=== PATIENT | female | born 1975 | race Caucasian/White ===

== ENCOUNTER 2017-12-29 10:17 | Emergency (ER) | payer MEDICARE, MEDICAID ==
[2017-12-29] MEDS: ONDANSETRON 4MG/2ML VIAL (J2405) IV (11:15)
[2017-12-29 11:53] LABS: BASO % 0.2 % (0.0-1.0); EOS % 0.1 % (0.0-3.0); HEMATOCRIT 30.1 % (36.0-47.0); HEMOGLOBIN 9.3 g/dl (12.0-15.5); IMMATURE GRANULOCYTE % 0.3 % (0-3.0); LYMPH # 1.1 10^3/uL (1.5-4.5); LYMPH % 9.1 % (24.0-44.0); MEAN CORPUSCULAR HEMOGLOBIN 28.7 pg (27.0-33.0); MEAN CORPUSCULAR HGB CONC 30.9 g/dl (32.0-36.5); MEAN CORPUSCULAR VOLUME 92.9 fl (80.0-96.0); MONO # 0.9 10^3/uL (0.0-0.8); MONO % 7.6 % (0.0-5.0); NEUTROPHILS # 9.6 10^3/uL (1.8-7.7); NEUTROPHILS % 82.7 % (36.0-66.0); PLATELET COUNT, AUTOMATED 357 10^3/uL (150-450); RED BLOOD COUNT 3.24 10^6/uL (4.00-5.40); RED CELL DISTRIBUTION WIDTH 15.3 % (11.5-14.5); WHITE BLOOD COUNT 11.6 10^3/uL (4.0-10.0)
[2017-12-29] MEDS: NS 1,000 ML IV (12:07)
[2017-12-29 12:28] LABS: ALBUMIN 2.5 GM/DL (3.2-5.2); ALKALINE PHOSPHATASE 75 U/L (45-117); ALT/SGPT 10 U/L (12-78); AMYLASE 56 U/L (25-115); ANION GAP 5 MEQ/L (8-16); AST/SGOT 10 U/L (7-37); BILIRUBIN,DIRECT < 0.1 MG/DL (0.0-0.2); BILIRUBIN,TOTAL 0.1 MG/DL (0.2-1.0); BLOOD UREA NITROGEN 13 MG/DL (7-18); CALCIUM LEVEL 8.3 MG/DL (8.5-10.1); CARBON DIOXIDE LEVEL 30 MEQ/L (21-32); CHLORIDE LEVEL 104 MEQ/L (98-107); CREATININE FOR GFR 0.53 MG/DL (0.55-1.30); GLOMERULAR FILTRATION RATE > 60.0 (>58); GLUCOSE, FASTING 125 MG/DL (70-100); LIPASE 413 U/L (73-393); POTASSIUM SERUM 3.3 MEQ/L (3.5-5.1); SODIUM LEVEL 139 MEQ/L (136-145); TOTAL PROTEIN 7.5 GM/DL (6.4-8.2)
[2017-12-29 12:29] LABS: LACTIC ACID SEPSIS PROTOCOL 0.6 MMOL/L (0.4-2.0)
[2017-12-29] MEDS ORDERED: ISOVUE-370 76% 100ML VIAL (Q9967) As Ordered (12:34)
[2017-12-29] MEDS: MORPHINE 4 MG/ML 1ML VIAL/SYRINGE (J2270) IV (12:35)
[2017-12-29] MEDS: methylPREDNISolone INJ 125 MG/2 ML VIAL (J2930) IV (14:15)
[2017-12-29 14:19] LABS: CALCIUM OXALATE CRYSTALS RFX LARGE; KETONE, URINE AUTO RFX 1+ mg/dL (NEGATIVE); MUCUS, URINE RFX SMALL (NEGATIVE); NITRITE, URINE AUTO RFX NEGATIVE (NEGATIVE); RBC, URINE AUTO RFX 8 /HPF (0-3); SQUAM EPITHELIAL CELL UR AURFX 1 /HPF (0-6); WBC, URINE AUTO RFX 4 /HPF (0-3)
[2017-12-29 14:40] LABS: LEUKOCYTE ESTERASE UR AUTO RFX 2+ (NEGATIVE)
== END 2017-12-29 14:29 | disposition home or self-care (01) ==
LOC: M ED 10:17
DX: K50.10 Crohn's disease of large intestine without complications (principal); K80.20 Calculus of gallbladder without cholecystitis without obstruction; R00.0 Tachycardia, unspecified; I10 Essential (primary) hypertension; E03.9 Hypothyroidism, unspecified; F20.9 Schizophrenia, unspecified; Z79.899 Other long term (current) drug therapy
CPT/HCPCS: Q9967

== ENCOUNTER 2018-07-21 06:30 | Emergency (ER) | payer MEDICARE, MEDICAID | END 2018-07-21 07:29 | disposition home or self-care (01) | LOC: M ED 06:30 | DX: J02.9 Acute pharyngitis, unspecified (principal); E03.9 Hypothyroidism, unspecified; Z79.899 Other long term (current) drug therapy; Z79.890 Hormone replacement therapy | CPT/HCPCS: 87880 ==

== ENCOUNTER 2018-10-29 17:13 | Emergency (ER) | payer MEDICARE, MEDICAID ==
[~2018-10-29] VITALS: Ht 157.5 cm; Wt 66.8 kg
[~2018-10-29 17:13] MED LIST: BENZ-52; CYAN1000VL; HALO1TAB19; HALO5TA; INFL10VL; JANU100T; LEVO125T4; LEVO150T7; LOSA50TA88; MAGICMW MT; PRED20TA PO; STEL90IN
[2018-10-29] MEDS ORDERED: HALOPERIDOL PO (17:30)
[2018-10-29] MEDS ORDERED: THIOTHIXENE (17:30)
[2018-10-29 19:37] VITALS: BP 116/74
--- NOTE | 2018-10-29 19:47 | REP ---
LEFT INGUINAL ULTRASOUND: Real-time sonographic evaluation of the left inguinal region performed. There is no evidence of left inguinal hernia. Palpable abnormality in this region appears to correspond to a large venous varicosity which traverses from the left abdominal wall into the left inguinal region. It communicates with the left iliac vein. It is patent with no intraluminal thrombus. Electronically Signed by Gaudencio Da Silva MD 10/30/2018 01:55 P
== END 2018-10-29 19:40 | disposition home or self-care (01) ==
LOC: M ED 17:13
DX: I86.2 Pelvic varices (principal); I10 Essential (primary) hypertension; F20.9 Schizophrenia, unspecified; E03.9 Hypothyroidism, unspecified; Z79.899 Other long term (current) drug therapy

== ENCOUNTER → 2019-01-09 | Outpatient (REF) | payer MEDICARE, MEDICAID ==
[~2019-01-09] MED LIST changes: +HALOPERIDOL PO; +THIOTHIXENE
== END ==
LOC: M SFHCWAGY 14:22
PROVIDERS: ATTEND Nurse Practitioner Family
DX: Z12.4 Encounter for screening for malignant neoplasm of cervix (principal)

== ENCOUNTER → 2019-01-09 | Outpatient (CLI) | payer MEDICARE, MEDICAID ==
--- NOTE | 2019-01-09 15:26 | REPMRS ---
Patient History The patient states she had a clinical breast exam in 12/2018. Patient has history of thyroid cancer at age 40 and is nulliparous. Family history of breast cancer at age 56 in paternal grandmother. No Hormone Replacement Therapy 3D TOMOSYNTHESIS WAS PERFORMED. Digital Woman Screen Mammo: January 09, 2019 - Exam #: [id number] Bilateral CC and MLO view(s) were taken. Technologist: Doris Espinoza, Technologist No prior studies available for comparison. FINDINGS: There are scattered fibroglandular densities. There is no evidence of cancer on this mammogram. Assessment: BI-RADS/ACR category 2 mammogram. Benign Findings. Recommendation Routine screening mammogram of both breasts in 1 year (for women over age 40). This mammogram was interpreted with the aid of an FDA-approved computer-aided dectection system. THE LIFETIME RISK OF BREAST CANCER IS 22.9%, THEREFORE SUPPLEMENTAL SCREENING MRI OF THE BREASTS IS RECOMMENDED. Electronically Signed By: Gaudencio Da Silva MD 01/09/19 [id number]
--- NOTE | 2019-01-14 09:49 | DEXA ---
AP SPINE L1 - L4 1.156 -0.3 -0.3 LT FEMUR TOTAL 0.892 -0.9 -0.6 LT NECK 0.815 -1.6 -1.1 RT FEMUR TOTAL 0.933 -0.6 -0.3 RT NECK 0.864 -1.2 -0.7 TOTAL BODY TOTAL OTHER COMMENTS: Normal bone densitometry of the spine. There is low bone density of the hips. FOLLOW-UP: Recommendation for the next bone density exam: 2 years. KANDY
== END ==
LOC: M WHC 13:41
PROVIDERS: ATTEND Internal Medicine
DX: Z01.419 Encounter for gynecological examination (general) (routine) without abnormal findings (principal); Z12.31 Encounter for screening mammogram for malignant neoplasm of breast; N60.19 Diffuse cystic mastopathy of unspecified breast; M81.0 Age-related osteoporosis without current pathological fracture; Z85.850 Personal history of malignant neoplasm of thyroid
CPT/HCPCS: 77063; 77067; 77080; G0101; G0123

== ENCOUNTER → 2019-04-18 | Outpatient (REF) | payer MEDICARE, MEDICAID | LOC: M SFHCLERA 18:19 | PROVIDERS: ATTEND Physician Assistant | DX: J02.9 Acute pharyngitis, unspecified (principal) ==

== ENCOUNTER 2020-05-21 07:34 | Emergency (ER) | payer MEDICARE, MEDICAID ==
[~2020-05-21] VITALS: Ht 157.5 cm; Wt 68.3 kg
[2020-05-21] MEDS ORDERED: VALA1TAB5 PO (07:43)
[2020-05-21] MEDS ORDERED: PALI1TAB2 PO (07:43)
[2020-05-21] MEDS ORDERED: BACITRACIN OINTMENT 30GM TUBE TOP STA (08:17)
[2020-05-21] MEDS ORDERED: PRED20TA PO (08:27)
[2020-05-21] MEDS ORDERED: BACI500O21 TOP (08:27)
[2020-05-21] MEDS ORDERED: LIDOCAINE VISCOUS 2% SOLN 15ML UDC SSP ONE (08:30)
[2020-05-21] MEDS ORDERED: predniSONE 20 MG TAB PO ONE (08:30)
[2020-05-21] MEDS ORDERED: MAGICMW SSP (08:31)
[2020-05-21 08:45] VITALS: BP 115/74
== END 2020-05-21 08:48 | disposition home or self-care (01) ==
LOC: M ED 07:34
DX: K13.70 Unspecified lesions of oral mucosa (principal); B02.8 Zoster with other complications; E11.9 Type 2 diabetes mellitus without complications; I10 Essential (primary) hypertension; K50.90 Crohn's disease, unspecified, without complications; F20.9 Schizophrenia, unspecified; F32.9 Major depressive disorder, single episode, unspecified; F41.9 Anxiety disorder, unspecified; Z79.84 Long term (current) use of oral hypoglycemic drugs; Z79.899 Other long term (current) drug therapy

== ENCOUNTER → 2020-09-12 | Outpatient (CLI) | payer MEDICARE, MEDICAID ==
[~2020-09-12] MED LIST changes: +BACI500O21 TOP; -BENZ-52; +BENZ-52 PO; +CENTCHW4 PO; -CYAN1000VL; +CYAN1000VL SQ; +HALO5TA PO; +JANU100T PO; +LEVO200T4 PO; +MAGICMW SSP; +PALI1TAB2 PO; +PALI1TAB3 PO; -STEL90IN; +STEL90IN SQ; +VALA1TAB5 PO; +VITA50005 PO
== END ==
LOC: M LABSMTC 11:07
PROVIDERS: ATTEND Anesthesiology
DX: Z01.812 Encounter for preprocedural laboratory examination (principal); Z20.822 Contact with and (suspected) exposure to COVID-19

== ENCOUNTER 2020-09-17 09:24 | Day surgery (SDC) | payer MEDICARE, MEDICAID ==
[~2020-09-17] VITALS: Ht 157.5 cm; Wt 66.1 kg
[~2020-09-17 09:24] MED LIST changes: +LIDOCAINE 2% 100MG/5ML SDV (FOR ANES.) As Ordered ONE; +NS 1,000 ML IV ONE; +propofoL 200 MG/20 ML VIAL As Ordered ONE
--- OUTSIDE RECORDS SUMMARY | 2020-09-17 09:30 | CCD ---
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 difficile colitis A04.72 Active 738959584 Problem Acute deep vein thrombosis ( DVT) of other vein of lower extremity, unspecified laterality I82.409 Active 590918597496 Problem Other schizophrenia F20.89 Active 30003462 Problem Irritable bowel syndrome with constipation K58.1 Active 426898402 Problem Arthralgia, unspecified joint M25.50 Active 57 840223 Problem Suzanna-rectal abscess K61.1 Active 89445146 ALLERGIES Allergen (clinical drug ingredient) Drug/Non Drug Allergy do cumented on EMR Reaction Allergy Type Onset Date Status balxzlzzide disodium hives Non Drug Allergy Active makepapurine Unknown Non Drug Allergy Active ENCOUNTERS from 1975 to 2020-07-20 Encounter Location Date Provider Diagnosis [facility] [address] [address] [place] [address] Jul, Joy [facility] IMMUNIZATIONS No Information SOCIAL HISTORY Tobacco Use: Social History Observation Description Date Details (start date - stop date) Never Smoker Sex Assigned At : Social History Observation Description Sex Assigned At Unknown Alcohol Screen (Audit-C) Question Answer Notes Did you have a drink containing alcohol in the past year? No Points 0 Interpretation Negative Tobacco Use/Smoking Question Answer Notes Patient is a never smoker REASON FOR REFERRAL No Information VITAL SIGNS No information MEDICATIONS Medication SIG (Take, Route, Frequency, Duration) Notes Start Da te End Date Status MiraLax - 250-300gm bottle as directed Orally one time for colonoscopy for 1 day December, Active Vitamin B 12 Active Tylenol 325 MG 2 tablets as needed Orally every 6 hrs Active Stelara 90 MG/ML as directed Subcutaneous every 8wks for 365 day s May, Active Centrum - Orally Active Hyoscyamine Sulfate 0.125 MG 1 tablet under the tongue and allow to dissolve as needed Sublingual once Feb, Active Paliperidone ER 6 MG TAKE ONE TABLET BY MOUTH EVERY DAY Oral for 30 Active MiraLax 255g bottle Once per colonoscopy prep oral once for 1 dose Active Levothyroxine Sodium 200 MCG 1 tablet on an empty stom ach in the morning Orally Once a day Active Benztropine Mesylate 1 MG 1 tablet at bedtime Orally Once a day Active Haloperidol 5 MG 1 tablet Orally Once a day Active PROCEDURES No Information RESULTS No Results REASON FOR VISIT No Information MEDICAL (GENERAL) HISTORY Type Description Date Medical History type II diabetes Medical History hypertension Medical History anemia Medical History hemorrhoids Medical History rheumatic fever Medical History Crohns SI Medical History hypokalemia Medical History neuropathy Medical History thyroid neoplasm malignant Medical History aphthous ulcer Medical History gastritis Medical History pyrexia Medical History colitis Medical History collagen vascular dx. Medical History schizophrenia Medical History pulmonary embolism Medical History Hypothyroidism Medical History drop foot Medical History thyroid caner Medical History Implanted device -IVC Filter Surgical History implanted device IVC Filter Surgical History fistula Surgical History colonoscopy 2016 Surgical History EGD 2016 Surgical History colonoscopy - kadhim 10/24/2017 Surgical History Colonoscopy-[facility] 02/2020 Hospitalization History SEE SURGICAL HX Hospitalization History [facility] - crohns fl are up 09/27/2017 Hospitalization History [facility]: crohns flare up 8 Goals Section No Information Health Concerns No Information MEDICAL EQUIPMENT No Information MENTAL STATUS No Information FUNCTIONAL STATUS No Information ASSESSMENTS No Information PLAN OF TREATMENT Medication Medication Name Sig Start Date Stop Date Stelara 90 MG/ML as directed Subcutaneous every 8wks for 365 day s May, Insurance Providers Payer Name Payer Address Payer Phone Insured Name Patient Relati onship to Insured Coverage Start Date Coverage End Date Medicare [address] [facility] [id number] Sarah Brown self Medicaid [address] [facility] [id number] Afia Brown self
--- OUTSIDE RECORDS SUMMARY | 2020-09-17 09:30 | CCD ---
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 difficile colitis A04.72 Active 769167605 Problem Acute deep vein thrombosis ( DVT) of other vein of lower extremity, unspecified laterality I82.409 Active 776525433255 Problem Other schizophrenia F20.89 Active 30053241 Problem Irritable bowel syndrome with constipation K58.1 Active 678209984 Problem Arthralgia, unspecified joint M25.50 Active 57 633351 Problem Suzanna-rectal abscess K61.1 Active 44992696 ALLERGIES Allergen (clinical drug ingredient) Drug/Non Drug Allergy do cumented on EMR Reaction Allergy Type Onset Date Status balxzlzzide disodium hives Non Drug Allergy Active makepapurine Unknown Non Drug Allergy Active ENCOUNTERS from 1975 to 2020-07-06 Encounter Location Date Provider Diagnosis [facility] [address] [facility] [address] [place] [address] Jun, Balwinder Al[place]fal[place] 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 IMMUNIZATIONS No Information SOCIAL HISTORY Tobacco Use: [...] REASON FOR REFERRAL No Information VITAL SIGNS Height 61 in Jun, Weight 152 lbs Jun, BMI 28.72 kg/m2 Jun, Oximetry 97 % Jun, Blood pressure systolic 100 mm Hg Jun, Blood pressure diastolic 74 mm Hg Jun, MEDICATIONS Medication SIG (Take, Route, Frequency, Duration) [...] Information RESULTS No Results REASON FOR VISIT F/U FROM COLONOSCOPY MEDICAL (GENERAL) HISTORY Type Description Date Medical [...] Hospitalization History SEE SURGICAL HX Hospitalization History [facility] - crohns fl are up 09/27/2017 Hospitalization History [place] [facility]: crohns flare up 8 Goals Section No Information Health Concerns No Information MEDICAL EQUIPMENT No Information MENTAL STATUS No Information FUNCTIONAL STATUS No Information ASSESSMENTS Encounter Date Diagnosis Assessment Notes Treatment Notes Treatm ent Clinical Notes Jun, 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 Concern for fistula on my colonoscopy and noted on MRI. She had fistula in past that was drained. She followed with Dr. Galaviz, but was told nothing to do regarding fistula (no records from office to review). She has failed majority of biologics (Remicade, Humira, Entyvio) and currently on Stelara which mother states helps but she still has periodic rectal bleeding. Outgoing referral for GI in [place] (Dr. Bo Gentile) that mother believes could see her daughter with better continuity of care. PLAN OF TREATMENT Medication Medication Name Sig Start Date Stop Date Stelara 90 MG/ML as directed Subcutaneous every 8wks for 365 day s May, Treatment Notes Assessment Notes Clinical Notes Crohns disease of both small and large intestine with fistul a Patient with many findings on her last colonoscopy with areas of adenoma disguised by inflammation. Concern for fistula on my colonoscopy and noted on MRI. She had fistula in past that was drained. She followed with Dr. Galaviz, but was told nothing to do regarding fistula (no records from office to review). She has failed majority of biologics (Remicade, Humira, Entyvio) and currently on Stelara which mother states helps but she still has periodic rectal bleeding. Outgoing referral for GI in [place] (Dr. Bo Gentile) that mother believes could see her daughter with better continuity of care. Next Appt Details prn Reason: Insurance Providers Payer Name Payer Address Payer Phone Insured Name Patient Relati onship to Insured Coverage Start Date Coverage End Date Medicaid [address] [facility] [id number] Afia Brown self Medicare [address] [place] [address] Sarah Brown self
--- OUTSIDE RECORDS SUMMARY | 2020-09-17 09:32 | CCD ---
Author Author [facility] Organization [facility] Address Unknown Phone Unavailable Care Team Providers Care Soils Engineer Name Role Phone Andrés Noble MD Unavailable Unavailable Andrés Noble MD Unavailable Unavailable Andrés Noble MD Unavailable Unavailable Andrés Noble MD Unavailable Unavailable Andrés Noble MD Unavailable Unavailable Andrés Noble MD Unavailable Unavailable Andrés Noble MD Unavailable Unavailable Andrés Noble MD Unavailable Unavailable Andrés Noble MD Unavailable Unavailable Andrés Noble MD Unavailable Unavailable Andrés Noble MD Unavailable Unavailable Andrés Noble MD Unavailable Unavailable Andrés Noble MD Unavailable Unavailable REASON, L EDWARD DO Unavailable Unavailable REASON, L EDWARD DO Unavailable Unavailable REASON, L EDWARD DO Unavailable Unavailable REASON, L EDWARD DO Unavailable Unavailable REASON, L EDWARD DO Unavailable Unavailable REASON, L EDWARD DO Unavailable Unavailable REASON, L EDWARD DO Unavailable Unavailable REASON, L EDWARD DO Unavailable Unavailable REASON, L EDWARD DO Unavailable Unavailable REASON, L EDWARD DO Unavailable Unavailable REASON, L EDWARD DO Unavailable Unavailable REASON, L EDWARD DO Unavailable Unavailable REASON, L EDWARD DO Unavailable Unavailable REASON, L EDWARD DO Unavailable Unavailable REASON, L EDWARD DO Unavailable Unavailable REASON, L EDWARD DO Unavailable Unavailable REASON, L EDWARD DO Unavailable Unavailable REASON, L EDWARD DO Unavailable Unavailable REASON, L EDWARD DO Unavailable Unavailable REASON, L EDWARD DO Unavailable Unavailable REASON, L EDWARD DO Unavailable Unavailable REASON, L EDWARD DO Unavailable Unavailable REASON, L EDWARD DO Unavailable Unavailable REASON, L EDWARD DO Unavailable Unavailable REASON, L EDWARD DO Unavailable Unavailable REASON, L EDWARD DO Unavailable Unavailable REASON, L EDWARD DO Unavailable Unavailable REASON, L EDWARD DO Unavailable Unavailable REASON, L EDWARD DO Unavailable Unavailable REASON, L EDWARD DO Unavailable Unavailable REASON, L EDWARD DO Unavailable Unavailable REASON, L EDWARD DO Unavailable Unavailable REASON, L EDWARD DO Unavailable Unavailable REASON, L EDWARD DO Unavailable Unavailable REASON, L EDWARD DO Unavailable Unavailable REASON, L EDWARD DO Unavailable Unavailable REASON, L EDWARD DO Unavailable Unavailable REASON, L EDWARD DO Unavailable Unavailable REASON, L EDWARD DO Unavailable Unavailable REASON, L EDWARD DO Unavailable Unavailable REASON, L EDWARD DO Unavailable Unavailable REASON, L EDWARD DO Unavailable Unavailable REASON, L EDWARD DO Unavailable Unavailable REASON, L EDWARD DO Unavailable Unavailable REASON, L EDWARD DO Unavailable Unavailable REASON, L EDWARD DO Unavailable Unavailable REASON, L EDWARD DO Unavailable Unavailable REASON, L EDWARD DO Unavailable Unavailable REASON, L EDWARD DO Unavailable Unavailable REASON, L EDWARD DO Unavailable Unavailable REASON, L EDWARD DO Unavailable Unavailable REASON, L EDWARD DO Unavailable Unavailable REASON, L EDWARD DO Unavailable Unavailable REASON, L EDWARD DO Unavailable Unavailable REASON, L EDWARD DO Unavailable Unavailable REASON, L EDWARD DO Unavailable Unavailable REASON, L EDWARD DO Unavailable Unavailable REASON, L EDWARD DO Unavailable Unavailable REASON, L EDWARD DO Unavailable Unavailable REASON, L EDWARD DO Unavailable Unavailable REASON, L EDWARD DO Unavailable Unavailable REASON, L EDWARD DO Unavailable Unavailable REASON, L EDWARD DO Unavailable Unavailable REASON, L EDWARD DO Unavailable Unavailable REASON, L EDWARD DO Unavailable Unavailable HALLERAN, Carmel RUCKER MD Unavailable Unavailable HALLERAN, Carmel RUCKER MD Unavailable Unavailable HALLERAN, Carmel RUCKER MD Unavailable Unavailable HALLERAN, Carmel RUCKER MD Unavailable Unavailable HALLERAN, Carmel RUCKER MD Unavailable Unavailable HALLERAN, Carmel RUCKER MD Unavailable Unavailable HALLERAN, Carmel RUCKER MD Unavailable Unavailable HALLERAN, Carmel RUCKER MD Unavailable Unavailable HALLERAN, Carmel RUCKER MD Unavailable Unavailable HALLERAN, Carmel RUCKER MD Unavailable Unavailable HALLERAN, Carmel RUCKER MD Unavailable Unavailable HALLERAN, Carmel RUCKER MD Unavailable Unavailable HALLERAN, Carmel RUCKER MD Unavailable Unavailable HALLERAN, Carmel RUCKER MD Unavailable Unavailable HALLERAN, Carmel RUCKER MD Unavailable Unavailable HALLERAN, Carmel RUCKER MD Unavailable Unavailable HALLERAN, Carmel RUCKER MD Unavailable Unavailable HALLERAN, Carmel RUCKER MD Unavailable Unavailable HALLERAN, Carmel RUCKER MD Unavailable Unavailable HALLERAN, Carmel RUCKER MD Unavailable Unavailable HALLERAN, Carmel RUCKER MD Unavailable Unavailable HALLERAN, Carmel RUCKER MD Unavailable Unavailable HALLERAN, Carmel RUCKER MD Unavailable Unavailable HALLERAN, Carmel RUCKER MD Unavailable Unavailable HALLERAN, Carmel RUCKER MD Unavailable Unavailable HALLERAN, Carmel RUCKER MD Unavailable Unavailable HALLERAN, Carmel RUCKER MD Unavailable Unavailable HALLERAN, Carmel RUCKER MD Unavailable Unavailable HALLERAN, Carmel RUCKER MD Unavailable Unavailable HALLERAN, Carmel RUCKER MD Unavailable Unavailable HALLERAN, Carmel RUCKER MD Unavailable Unavailable HALLERAN, Carmel RUCKER MD Unavailable Unavailable HALLERAN, Carmel RUCKER MD Unavailable Unavailable HALLERAN, Carmel RUCKER MD Unavailable Unavailable HALLERAN, aCrmel RUCKER MD Unavailable Unavailable HALLERAN, Carmel RUCKER MD Unavailable Unavailable HALLERAN, Carmel RUCKER MD Unavailable Unavailable HALLERAN, Carmel RUCKER MD Unavailable Unavailable HALLERAN, Carmel RUCKER MD Unavailable Unavailable HALLERAN, Carmel RUCKER MD Unavailable Unavailable HALLERAN, Carmel RUCKER MD Unavailable Unavailable HALLERAN, Carmel RUCKER MD Unavailable Unavailable HALLERAN, Carmel RUCKER MD Unavailable Unavailable HALLERAN, Carmel RUCKER MD Unavailable Unavailable HALLERAN, Carmel RUCKER MD Unavailable Unavailable HALLERAN, Carmel RUCKER MD Unavailable Unavailable HALLERAN, Carmel RUCKER MD Unavailable Unavailable HALLERAPaxton, Carmel RUCKER MD Unavailable Unavailable HALLERAN, Carmel RUCKER MD Unavailable Unavailable HALLERAN, Carmel RUCKER MD Unavailable Unavailable HALLERAN, Carmel RUCKER MD Unavailable Unavailable HALLERAN, Carmel RUCKER MD Unavailable Unavailable HALLERAN, Carmel RUCKER MD Unavailable Unavailable HALLERAN, Carmel RUCKER MD Unavailable Unavailable HALLERAPaxton, Carmel RUCKER MD Unavailable Unavailable HALLERAPaxton, Carmel RUCKER MD Unavailable Unavailable HALLERAN, Carmel RUCKER MD Unavailable Unavailable HALLERAN, Carmel RUCKER MD Unavailable Unavailable HALLERAN, Carmel RUCKER MD Unavailable Unavailable HALLERAN, Carmel RUCKER MD Unavailable Unavailable HALLERAN, Carmel RUCKER MD Unavailable Unavailable HALLERAPaxton, Carmel RUCKER MD Unavailable Unavailable HALLERAPaxton, Carmel RUCKER MD Unavailable Unavailable HALLERAPaxton, Carmel RUCKER MD Unavailable Unavailable HALLERAN, Carmel RUCKER MD Unavailable Unavailable HALLERAN, Carmel RUCKER MD Unavailable Unavailable HALLERAN, Carmel RUCKER MD Unavailable Unavailable HALLERAN, Carmel RUCKER MD Unavailable Unavailable Carmel DRAKE MD Unavailable Unavailable Carmel DRAKE MD Unavailable Unavailable BROWN, ANDREINA RONIT SUPERVISOR CEREAL Unavailable Unavailable BROWN, ANDREINA RONIT SUPERVISOR CEREAL Unavailable Unavailable BROWN, ANDREINA RONIT SUPERVISOR CEREAL Unavailable Unavailable BROWN, ANDREINA RONIT SUPERVISOR CEREAL Unavailable Unavailable BROWN, ANDREINA RONIT SUPERVISOR CEREAL Unavailable Unavailable BROWN, ANDREINA RONIT SUPERVISOR CEREAL Unavailable Unavailable BROWN, ANDREINA RONIT SUPERVISOR CEREAL Unavailable Unavailable BROWN, ANDREINA RONIT SUPERVISOR CEREAL Unavailable Unavailable BROWN, ANDREINA RONIT SUPERVISOR CEREAL Unavailable Unavailable BROWN, ANDREINA RONIT SUPERVISOR CEREAL Unavailable Unavailable BROWN, ANDREINA RONIT SUPERVISOR CEREAL Unavailable Unavailable BROWN, ANDREINA RONIT SUPERVISOR CEREAL Unavailable Unavailable BROWN, ANDREINA RONIT SUPERVISOR CEREAL Unavailable Unavailable BROWN, ANDREINA RONIT SUPERVISOR CEREAL Unavailable Unavailable BROWN, ANDREINA RONIT SUPERVISOR CEREAL Unavailable Unavailable BROWN, ANDREINA RONIT SUPERVISOR CEREAL Unavailable Unavailable BROWN, ANDREINA RONIT SUPERVISOR CEREAL Unavailable Unavailable BROWN, ANDREINA RONIT SUPERVISOR CEREAL Unavailable Unavailable BROWN, ANDREINA RONIT SUPERVISOR CEREAL Unavailable Unavailable BROWN, ANDREINA RONIT SUPERVISOR CEREAL Unavailable Unavailable BROWN, ANDREINA RONIT SUPERVISOR CEREAL Unavailable Unavailable BROWN, ANDREINA RONIT SUPERVISOR CEREAL Unavailable Unavailable BROWN, ANDREINA RONIT SUPERVISOR CEREAL Unavailable Unavailable BROWN, ANDREINA RONIT SUPERVISOR CEREAL Unavailable Unavailable BROWN, ANDREINA RONIT SUPERVISOR CEREAL Unavailable Unavailable BROWN, ANDREINA RONIT SUPERVISOR CEREAL Unavailable Unavailable BROWN, ANDREINA RONIT SUPERVISOR CEREAL Unavailable Unavailable BROWN, ANDREINA RONIT SUPERVISOR CEREAL Unavailable Unavailable BROWN, ANDREINA RONIT SUPERVISOR CEREAL Unavailable Unavailable BROWN, ANDREINA RONIT SUPERVISOR CEREAL Unavailable Unavailable BROWN, ANDREINA RONIT SUPERVISOR CEREAL Unavailable Unavailable BROWN, ANDREINA RONIT SUPERVISOR CEREAL Unavailable Unavailable BROWN, ANDREINA RONIT SUPERVISOR CEREAL Unavailable Unavailable BROWN, ANDREINA RONIT SUPERVISOR CEREAL Unavailable Unavailable BROWN, ANDREINA RONIT SUPERVISOR CEREAL Unavailable Unavailable BROWN, ANDREINA RONIT SUPERVISOR CEREAL Unavailable Unavailable BROWN, ANDREINA RONIT SUPERVISOR CEREAL Unavailable Unavailable BROWN, ANDREINA RONIT SUPERVISOR CEREAL Unavailable Unavailable BROWN, ANDREINA RONIT SUPERVISOR CEREAL Unavailable Unavailable ZEGIL, D YESSENIA TRAVELERS' AID WORKER Unavailable Unavailable ZEGIL, D YESSENIA TRAVELERS' AID WORKER Unavailable Unavailable ZEGIL, D YESSENIA TRAVELERS' AID WORKER Unavailable Unavailable Pedrito Gentile MD Unavailable Unavailable Pedrito Gentile MD Unavailable Unavailable Pedrito Gentile MD Unavailable Unavailable Pedrito Gentile MD Unavailable Unavailable Pedrito Gentile MD Unavailable Unavailable Pedrito Gentile MD Unavailable Unavailable ePdrito Gentile MD Unavailable Unavailable Pedrito Gentile MD Unavailable Unavailable Pedrito Gentile MD Unavailable Unavailable Pedrito Gentile MD Unavailable Unavailable Seferino S Bo HUGHES Unavailable Unavailable Seferino S Bo HUGHES Unavailable Unavailable Seferino S Bo HUGHES Unavailable Unavailable Seferino S Bo HUGHES Unavailable Unavailable Seferino S Bo HUGHES Unavailable Unavailable Seferino S Bo HUGHES Unavailable Unavailable Seferino S Bo HUGHES Unavailable Unavailable Seferino S Bo MD Unavailable Unavailable Seferino S Bo MD Unavailable Unavailable Seferino, S Bo MD Unavailable Unavailable Seferino S Bo MD Unavailable Unavailable Seferino S Bo HUGHES Unavailable Unavailable Seferino S Bo HUGHES Unavailable Unavailable Seferino S Bo HUGHES Unavailable Unavailable Seferino S Bo HUGHES Unavailable Unavailable Seferino S Bo HUGHES Unavailable Unavailable Seferino, S Bo HUGHES Unavailable Unavailable Seferino S Bo HUGHES Unavailable Unavailable SeferinoPedrito MD Unavailable Unavailable SeferinoPedrito arana MD Unavailable Unavailable SeferinoPedrito MD Unavailable Unavailable Seferino S Bo HUGHES Unavailable Unavailable SeferinoPedrito arana MD Unavailable Unavailable Seferino, S Bo HUGHES Unavailable Unavailable SeferinoPedrito arana MD Unavailable Unavailable Pedrito Gentile MD Unavailable Unavailable Pedrito Gentile MD Unavailable Unavailable Pedrito Gentile MD Unavailable Unavailable Pedrito Gentile MD Unavailable Unavailable Pedrito Gentile MD Unavailable Unavailable Seferino S Bo HUGHES Unavailable Unavailable Pedrito Gentile MD Unavailable Unavailable Pedrito Gentile MD Unavailable Unavailable Pedrito Gentile MD Unavailable Unavailable Pedrito Gentile MD Unavailable Unavailable Pedrito Gentile MD Unavailable Unavailable Pedrito Gentile MD Unavailable Unavailable Pedrito Gentile MD Unavailable Unavailable Seferino, S Bo HUGHES Unavailable Unavailable Hadian, Arley Unavailable Unavailable Hadian, Arley Unavailable Unavailable Hadian, Arley Unavailable Unavailable Hadian, Arley Unavailable Unavailable Hadian, Arley Unavailable Unavailable Hadian, Arley Unavailable Unavailable Hadian, Arley Unavailable Unavailable Hadian, Arley Unavailable Unavailable Hadian, Arley Unavailable Unavailable Hadian, Arley Unavailable Unavailable Hadian, Arley Unavailable Unavailable Hadian, Arley Unavailable Unavailable Hadian, Arley Unavailable Unavailable Hadian, Arley Unavailable Unavailable Hadian, Arley Unavailable Unavailable Hadian, Arley Unavailable Unavailable Hadian, Arley Unavailable Unavailable Hadian, Arley Unavailable Unavailable Hadian, Arley Unavailable Unavailable Hadian, Arley Unavailable Unavailable Hadian, Arley Unavailable Unavailable Hadian, Arley Unavailable Unavailable Hadian, Arley Unavailable Unavailable Hadian, Arley Unavailable Unavailable Hadian, Arley Unavailable Unavailable Hadian, Arley Unavailable Unavailable Hadian, Arley Unavailable Unavailable Hadian, Arley Unavailable Unavailable Hadian, Arley Unavailable Unavailable Hadian, Arley Unavailable Unavailable Hadian, Arley Unavailable Unavailable Hadian, Arley Unavailable Unavailable Hadian, Arley Unavailable Unavailable ABHYANKHARJINDER ASH MD Unavailable Unavailable ABHYANKHARJINDER ASH MD Unavailable Unavailable ABHYANKHARJINDER ASH MD Unavailable Unavailable ABHYANKHARJINDER ASH MD Unavailable Unavailable ABHYANKHARJINDER ASH MD Unavailable Unavailable ABHYANKHARJINDER ASH MD Unavailable Unavailable ABHYANKARHARJINDER MD Unavailable Unavailable ABHYANKARHARJINDER MD Unavailable Unavailable Cata, Summer SUPERVISOR CEREAL Unavailable Unavailable Cata, Summer SUPERVISOR CEREAL Unavailable Unavailable Cata, Summer SUPERVISOR CEREAL Unavailable Unavailable Cata, Summer SUPERVISOR CEREAL Unavailable Unavailable Cata, Summer SUPERVISOR CEREAL Unavailable Unavailable Cata, Summer SUPERVISOR CEREAL Unavailable Unavailable Cata, Summer SUPERVISOR CEREAL Unavailable Unavailable Cata, Summer SUPERVISOR CEREAL Unavailable Unavailable Cata, Summer SUPERVISOR CEREAL Unavailable Unavailable ALTAFI, ALCIDES MD Unavailable Unavailable ALTAFI, ALCIDES MD Unavailable Unavailable ALTAFI, ALCIDES MD Unavailable Unavailable ALTAFI, ALCIDES MD Unavailable Unavailable ALTAFI, ALCIDES MD Unavailable Unavailable ALTAFI, ALCIDES MD Unavailable Unavailable ALTAFI, ALCIDES MD Unavailable Unavailable ALTAFI, ALCIDES MD Unavailable Unavailable ALTAFI, ALCIDES MD Unavailable Unavailable ALTAFI, ALCIDES MD Unavailable Unavailable ALTAFI, ALCIDES MD Unavailable Unavailable MARTY GARCIA MD MPH Unavailable Unavailable Real, Andrés HUGHES Unavailable Unavailable Real, Andrés HUGHES Unavailable Unavailable Real, Andrés HUGHES Unavailable Unavailable RealAndrés MD Unavailable Unavailable Real, Josselinehib Unavailable Unavailable Real, Josselinehib Unavailable Unavailable Real, Josselinehib Unavailable Unavailable Real, Wahib Unavailable Unavailable Real, Josselinehib Unavailable Unavailable Real, Josselinehib Unavailable Unavailable Real, Wahib Unavailable Unavailable Real, Josselinehib Unavailable Unavailable Real, Josselinehib Unavailable Unavailable Signature Not Required, Not Signature Unavailable Un available ALTAFI, ALCIDES MD Unavailable Unavailable ALTAFI, ALCIDES MD Unavailable Unavailable ALTAFI, ALCIDES MD Unavailable Unavailable ALTAFI, ALCIDESBRADY HUGHES Unavailable Unavailable ALTAFI, ALCIDESBRADY HUGHES Unavailable Unavailable ALTAFI, ALCIDESBRADY HUGHES Unavailable Unavailable ALTAFI, ALCIDESBRADY HUGHES Unavailable Unavailable ALTAFI, ALCIDES MD Unavailable Unavailable ALTAFI, ALCIDESBRADY HUGHES Unavailable Unavailable ALTAFI, ALCIDESBRADY HUGHES Unavailable Unavailable ALTAFI, ALCIDES HUGHES Unavailable Unavailable OSCAR, A YAO PA Unavailable Unavailable OSCAR, A YAO PA Unavailable Unavailable OSCAR, A YAO PA Unavailable Unavailable OSCAR, A YAO PA Unavailable Unavailable OSCAR, A YAO PA Unavailable Unavailable OSCAR, A YAO PA Unavailable Unavailable OSCAR, A YAO PA Unavailable Unavailable OSCAR, A YAO PA Unavailable Unavailable OSCAR, A YAO PA Unavailable Unavailable OSCAR, A YAO PA Unavailable Unavailable OSCAR, A YAO PA Unavailable Unavailable OSCAR, A YAO PA Unavailable Unavailable OSCAR, A YAO PA Unavailable Unavailable Sandra, L Va SUPERVISOR CEREAL Unavailable Unavailable Sandra, L Va SUPERVISOR CEREAL Unavailable Unavailable Sandra, L Va SUPERVISOR CEREAL Unavailable Unavailable Sandra, L Va SUPERVISOR CEREAL Unavailable Unavailable Sandra, L Va SUPERVISOR CEREAL Unavailable Unavailable Sandra, L Va SUPERVISOR CEREAL Unavailable Unavailable Sandra, L Va SUPERVISOR CEREAL Unavailable Unavailable Sandra, L Va SUPERVISOR CEREAL Unavailable Unavailable Sandra, L Va SUPERVISOR CEREAL Unavailable Unavailable Sandra, L Va SUPERVISOR CEREAL Unavailable Unavailable Sandra, L Va SUPERVISOR CEREAL Unavailable Unavailable Zaheer Wright MD Unavailable Unavailable Zaheer Wright MD Unavailable Unavailable Zaheer Wright MD Unavailable Unavailable Zaheer Wright MD Unavailable Unavailable Zaheer Wright MD Unavailable Unavailable Zaheer Wright MD Unavailable Unavailable Zaheer Wright MD Unavailable Unavailable Zaheer Wright MD Unavailable Unavailable Zaheer Wright MD Unavailable Unavailable Zaheer Wright MD Unavailable Unavailable Zaheer Wright MD Unavailable Unavailable Zaheer Wright MD Unavailable Unavailable Zaheer Wright MD Unavailable Unavailable Zaheer Wright MD Unavailable Unavailable Zaheer Wright MD Unavailable Unavailable Zaheer Wright MD Unavailable Unavailable Zaheer Wright MD Unavailable Unavailable Zaheer Wright MD Unavailable Unavailable Zaheer Wright MD Unavailable Unavailable Zaheer Wright MD Unavailable Unavailable Zaheer Wright MD Unavailable Unavailable Zaheer Wright MD Unavailable Unavailable Zaheer Wright MD Unavailable Unavailable Zaheer Wright MD Unavailable Unavailable Kyle, M Raymond HUGHES Unavailable Unavailable Kyle, M Raymond HUGHES Unavailable Unavailable Kyle, M Raymond HUGHES Unavailable Unavailable Kyle, M Raymond HUGHES Unavailable Unavailable Kyle, M Raymond HUGHES Unavailable Unavailable Kyle, M Raymond HUGHES Unavailable Unavailable Kyle, M Raymond HUGHES Unavailable Unavailable Kyle, M Raymond HUGHES Unavailable Unavailable Kyle, M Raymond HUGHES Unavailable Unavailable THATTE, V WHITNEY PA-C Unavailable Unavailable THATTE, V WHITNEY PA-C Unavailable Unavailable THATTE, V WHITNEY PA-C Unavailable Unavailable THATTE, V WHITNEY PA-C Unavailable Unavailable THATTE, V WHITNEY PA-C Unavailable Unavailable THATTE, V WHITNEY PA-C Unavailable Unavailable THATTE, V WHITNEY PA-C Unavailable Unavailable THATTE, V WHITNEY PA-C Unavailable Unavailable THATTE, V WHITNEY PA-C Unavailable Unavailable THATTE, V WHITNEY PA-C Unavailable Unavailable THATTE, V WHITNEY PA-C Unavailable Unavailable THATTE, V WHITNEY PA-C Unavailable Unavailable Re-disclosure Warning The records that you are about to access may contain information from federally-assisted alcohol or drug abuse programs. If such information is present, then the following federally mandated warning applies: This information has been disclosed to you from records protected by federal confidentiality rules (42 CFR part 2). The federal rules prohibit you from making any further disclosure of this information unless further disclosure is expressly permitted by the written consent of the person to whom it pertains or as otherwise permitted by 42 CFR part 2. A general authorization for the release of medical or other information is NOT sufficient for this purpose. The Federal rules restrict any use of the information to criminally investigate or prosecute any alcohol or drug abuse patient.The records that you are about to access may contain highly sensitive health information, the redisclosure of which is protected by Article 27-F of the [facility] Public Health law. If you continue you may have access to information: Regarding HIV / AIDS; Provided by facilities licensed or operated by the [facility] Office of Mental Health; or Provided by the [facility] Office for People With Developmental Disabilities. If such information is present, then the following [facility] mandated warning applies: This information has been disclosed to you from confidential records which are protected by state law. State law prohibits you from making any further disclosure of this information without the specific written consent of the person to whom it pertains, or as otherwise permitted by law. Any unauthorized further disclosure in violation of state law may result in a fine or [place] [facility] sentence or both. A general authorization for the release of medical or other information is NOT sufficient authorization for further disc losure. Allergies and Adverse Reactions Type Description Substance Reaction Status Data Source(s ) Drug allergy balsalazide balsalazide [facility] spital Drug allergy Drug allergy MAKEPAPURINE [facility] Drug allergy Drug allergy BALXZILZIDE [facility] balxzlzzide disodium balxzlzzide disodium balxzlzzide disodium hives Active eCW1 ([facility]) makepapurine makepapurine makepapurine Unknown Active eCW1 ([facility]) Family History Family Member Name Family Member Gender Family Member Status Date o f Status Description Data Source(s) Unknown Male Problem MEDENT ([facility] () Encounters Encounter Providers Location Date Indications Data Source(s ) Preadmit Attender: WHITNEY MASTERS PA-C 09/27/2020 02:33:00 PM [facility] Outpatient Attender: WHITNEY MASTERS PA-C 09/13/2020 12:45:00 PM [facility] Outpatient Attender: Bo Gentile MD ER-RAD 09/13/2020 10:14: 00 AM [facility] Outpatient Attender: Andrés Noble MD 09/06/2020 01:11:00 PM [facility] Outpatient Attender: Summer Ivy NP CPSCAORT-CPSGNBEH 08/14 09:42:00 AM [facility] - 09/03/2020 09:43:00 AM EST [facility] Patient discharged. Outpatient Attender: Andrés Noble MD ER-CTCMEDON 08/30/2020 01:50:00 PM [facility] Emergency Attender: YAO OROZCO ED-ED 08/27 06:39:00 AM [facility] - 08/27/2020 07:05:00 AM EST WOUND CHECK UP,RIGHT RING FINGER [facility] WOUND CHECK UP,RIGHT RING FINGER Patient discharged. Emergency Attender: YAO OROZCO ED-ED 08/24 08:05:00 AM EST - 08/24/2020 08:39:00 AM EST WOUND CHECK [facility] WOUND CHECK Patient discharged. Outpatient Attender: Andrés Noble MD 08/23/2020 01:08:00 PM [facility] 08/23/2020 10:10:00 AM [facility] Emergency Attender: YESSENIA UNDERWOOD [facility] ED-ED 08/13 04:25:00 PM EST - 08/22/2020 07:16:00 PM EST RT RING FINGER [place] [facility] RT RING FINGER [place]EN Patient discharged. Outpatient Attender: Andrés Noble MD -[facility] 021 04:01:00 PM EST - 08/19/2020 04:02:00 PM EST [id number] [facility] [id number] Patient discharged. Outpatient Attender: Arley Lorenzo ED-[facility] 11:29:00 AM EST - 08/17/2020 11:30:00 AM EST [id number] [facility] [id number] Patient discharged. Outpatient Attender: Raymond [facility] 08/16 02:59:00 PM EST - 08/16/2020 03:00:00 PM [facility] Patient discharged. Outpatient Attender: Andrés Noble MD -CTCMEDONC 08/16/2020 01:30:00 PM [facility] Outpatient Attender: SINCERE WOODRUFF DO [facility] 08/10 07:29:00 AM EST - 08/10/2020 07:30:00 AM EST [id number] [facility] - [place] K529 Patient discharged. Outpatient Attender: Andrés Noble MD 08/09/2020 09:06:00 AM [facility] 08/02/2020 03:51:00 PM [facility] Outpatient Attender: Andrés Noble MD 08/02/2020 03:24:00 PM [facility] Outpatient Attender: Raymond Wright MD ED-LAB 020 08:10:00 AM EST - 08/02/2020 08:11:00 AM EST [id number] [facility] [id number] [id number] Patient discharged. Outpatient Attender: Andrés Noble MD 07/27/2020 02:41:00 PM [facility] Outpatient Attender: RONIT HERBERT NP ED-IMAG 2019 08:38:00 AM EST - 07/26/2020 08:39:00 AM EST screening [facility] screening Patient discharged. Outpatient Attender: Andrés Noble MD 07/19/2020 01:48:00 PM [facility] Outpatient [address] [facility] [address] [facility] [address] 07/19/2020 12:00:00 AM EST eCW1 ([facility]) Outpatient Attender: Andrés Noble MD 07/12/2020 02:26:00 PM [facility] Outpatient Attender: Summer Ivy NP CPSCAORT-CPSGNBEH 06/14 08:43:00 AM EST - 07/07/2020 08:44:[address] [facility] Patient discharged. Outpatient Attender: Andrés Noble MD ER-CTCMEDONC 07/05/2020 01:21:00 PM [facility] Outpatient [address] [facility] [address] [facility] [place] [address] 07/05/2020 12:00:00 AM EST eCW1 ([facility]) Outpatient Attender: Andrés Noble MD 06/28/2020 11:59:00 AM [facility] Outpatient Attender: Andrés Noble MD ER-CTCMEDONC 06/23/2020 08:20:00 AM [facility] Outpatient Attender: Andrés Noble MD 06/21/2020 02:34:00 PM [facility] Outpatient Attender: RONIT HERBERT NP CPSCAORT-CPSGNOBG 01/2020 03:22:00 PM [facility] Outpatient Attender: Andrés Noble MD 06/14/2020 02:18:00 PM [facility] Outpatient Attender: Andrés Noble MD ER-CTCMEDON 06/08/2020 02:43:00 PM EDT [facility] Outpatient Attender: Summer Ivy NP [facility]-CPSGNBEH 05/14 08:40:00 AM EDT - 06/04/2020 08:41:00 [facility] Out[facility] Attender: Andrés Noble MD 06/03/2020 03:08:00 PM EDT [facility] Admission cancelled. Disregard status an d admitted date. Outpatient CPSCAORT-LABEJN 06/03/2020 09:46:00 AM EDT [facility] Outpatient Attender: EDWARD REASON DO ED-[facility] 06/03 08:22:00 AM EDT - 06/03/2020 08:23:00 AM EDT N390 [facility] N390 Patient discharged. [facility] 05/25/2020 06:59:00 PM EDT [facility] Outpatient Attender: EDWARD REASON DO [facility] 05/25 07:23:00 AM EDT - 05/25/2020 07:24:00 AM EDT [id number] [facility] [id number] Patient discharged. Preadmit Attender: Andrés Noble MD [facility] 05/25/2020 12:00 :00 AM EDT [id number] D649 [facility] [id number] D649 Outpatient Attender: Andrés Noble MD [facility] 05/24/2020 10:22:00 AM EDT [facility] Emergency Attender: YAO OROZCO ED-ED 05/14 06:59:00 PM EDT - 05/14/2020 07:18:00 PM EDT RASH ON RT ARM, SORE ON TONGUE [facility] RASH ON RT ARM, SORE ON TONGUE Patient discharged. Outpatient CPSCAORT-LABEJN 05/10/2020 08:02:00 PM EDT [facility] Outpatient Attender: Arley Lorenzo ED-LABPNP 0 03:04:00 PM EDT - 05/10/2020 03:05:00 PM EDT FEVER SORES IN MOUTH [facility] FEVER SORES IN MOUTH Patient discharged. Outpatient [address] [facility] [address] [place] [address] 05/10/2020 12:00:00 AM EDT eCW1 ([facility]) Outpatient Attender: Summer Ivy NP [facility] 04/13 09:12:00 AM EDT - 04/26/2020 09:13:00 AM EDT [facility] Patient discharged. Outpatient CPSCAORT-LABEJN 03/26/2020 02:55:00 PM EDT [facility] Outpatient Attender: SINCERE Thompsoner: Raymond Wright MD ED-LAB 03/26/2020 01:44:00 PM EDT - 03/26/2020 01:45:00 PM EDT E119 [id number] [facility] E119 [id number] Patient discharged. Outpatient Attender: ALKA DRAKE MD [place] 03/12/2020 03:15:00 PM EDT MEDENT ([facility]) Outpatient Attender: ALCIDES BAEZA MDAttender: Sign ature Signature Not Required SURG-MRI 03/10/2020 08:13:00 AM EDT [facility] Outpatient [facility] [address] [place] [address] 03/08/2020 12:00:00 AM EDT eCW1 ([facility]) Outpatient Attender: ALCIDES BAEZA MD ED-IMAG 02/26 07:44:00 AM EDT - 02/27/2020 07:45:00 AM EDT [facility]OHNS DISEASE [id number] [facility] CROHNS DISEASE [id number] Patient discharged. Outpatient [address] [facility] [address] [place] [address] 02/25/2020 12:00:00 AM EDT [facility] Outpatient Attender: ALCIDES BEAZA MD ER-ASUR 02/24/2020 06:59:00 AM EDT [facility] Admission cancelled. Disregard status an d admitted date. (OR-Gastro) OR Gastroenterology [address] [facility] [address] [place] [address] 02/24/2020 12:00:00 AM EDT eCW1 ([facility]) Outpatient CPSCAORT-LABEJN 02/20/2020 02:38:00 PM EDT [facility] Outpatient Attender: Andrés Noble MD ED-LAB 020 12:28:00 PM EDT - 02/20/2020 12:29:00 PM EDT I82.402 K50.90 D64.9 [facility] I82.402 K50.90 D64.9 Patient discharged. Outpatient Attender: ALCIDES BAEZA MD ER-LAB 02/20/2020 07:14:00 AM EDT [facility] Outpatient Attender: Raymond Wright MD [facility] 02/18 03:06:00 PM EDT - 02/19/2020 03:07:00 PM EDT [facility] Patient discharged. Outpatient [address] [facility] [address] [place] [address] 02/17/2020 12:00:00 AM ED[facility] Attender: Andrés Noble MD ER-CTCMEDON 02/16/2020 12:51:00 PM EDT [facility] Outpatient Attender: Raymond Wright MD ED-IMAG 020 02:41:00 PM EDT - 02/06/2020 02:42:00 PM EDT C73, E89.0 [facility] C73, E89.0 Patient discharged. Outpatient CPSCAORT-LABEJN 02/03/2020 09:25:00 AM EDT [facility] Outpatient Attender: Raymond Wright MDReferrer: Andrés Noble MD ED-LAB 02/03/2020 07:37:00 AM EDT - 02/03/2020 07:38:00 AM EDT C73 E89.0 I82.402 K50.90 D64.9 [facility] C73 E89.0 I82.402 K50.90 D64.9 Patient discharged. Outpatient Attender: Va Flores NP CPSCAORT-CPSGNBE 04/2020 09:01:00 AM EDT - 01/20/2020 09:02:00 AM EDT [facility] Patient discharged. [facility] [address] [place] [address] 01/09/2020 12:00:00 AM EDT eCW1 ([facility] hospital) Outpatient CPSCAORT-LABEJN 12/30/2019 09:36:00 AM EDT [facility] Outpatient Attender: EDWARD REASON DO ED-LAB 12/29 07:09:00 AM EDT - 12/30/2019 07:10:00 AM EDT E119 [id number] [facility] E119 [id number] Patient discharged. [facility] [place] [facility] [address] [place] [address] 12/22/2019 12:00:00 AM EDT eCW1 ([facility]) [facility] [address] [facility] [address] [place] [address] 12/16/2019 12:00:00 AM EDT eCW1 ([facility]) Outpatient CPSCAORT-LABEJN 11/17/2019 09:58:00 AM EDT [facility] Outpatient Attender: EDWARD REASON DOReferrer: Va Flores NP ED-LAB 11/17/2019 07:35:00 AM EDT - 11/17/2019 07:36:00 AM EDT E119 [facility] E119 Patient discharged. [facility] [address] [facility] [place] [facility] [address] [place] [address] 11/14/2019 12:00:00 AM EDT eCW1 ([facility]) [facility] [address] [facility] [place] [facility] [address] [place] [address] 11/13/2019 12:00:00 AM EDT eCW1 ([facility]) Outpatient Attender: Va Flores NP CPSCAORT-CPSGNBEH 10/13 04:20:00 PM EDT - 11/10/2019 04:21:00 PM EDT [facility] Patient discharged. [facility] [address] [place] [address] 11/10/2019 12:00:00 AM EDT eCW1 ([facility]) Outpatient CPSCAORT-LABEJN 10/25/2019 02:03 :00 PM EDT - 10/25/2019 02:04:00 PM EDT [facility] Patient discharged. Outpatient Attender: Raymond Wright MD [facility] 020 07:50:00 AM EDT - 10/25/2019 07:51:00 AM EDT E89.0 C73 [facility] E89.0 C73 Patient discharged. Outpatient Attender: Va Flores NP CPSSTEFFEN-CPSGNBEH 08/13 04:20:00 PM EST - 08/26/2019 04:21:[address] [facility] Patient discharged. Outpatient Attender: HARJINDER GIMENEZ MD 08/18/2019 03:20:0 0 PM [facility] Outpatient Attender: Raymond Wright MD CPSSOFIORT-CPSCAEND 08/18 02:53:00 PM EST - 08/18/2019 02:54:00 PM [facility] Patient discharged. [facility] 08/02/2019 02:30:00 PM [facility] Outpatient Attender: SINCERE WOODRUFF DO [facility] 08/02 08:12:00 AM EST - 08/02/2019 08:13:00 AM [facility] E55.9 [facility] E55.9 Patient discharged. Outpatient Attender: Va Flores NP [facility] 07/13 04:12:00 PM EST - 07/29/2019 04:13:[address] [facility] Patient discharged. Outpatient Attender: Va Flores NP CPSCASHER-CPSGNBEH 06/13 08:13:00 AM EST - 07/01/2019 08:14:[address] [facility] Patient discharged. Outpatient Attender: Va ROSEN-CPSGNBEH 05/14 03:01:00 PM EDT - 06/10/2019 03:02:00 PM [facility] Outpatient Attender: MARTY GARCIA MD [facility] 02/03/2019 02:15:00 PM EDT [facility] Outpatient Attender: MARTY GARCIA MD [facility] 11/04/2018 12:13:00 PM EDT [facility] Outpatient Attender: MARTY GARCIA MD [facility] 09/23/2018 08:55:00 AM EST [facility] Immunizations Vaccine Date Status Description Data Source(s) INFLUENZA VIRUS VACCINE QUADRIVAL (6 MOS AND UP)/PF 05/24/2020 12:00:00 AM EDT completed [facility] Medications Medication Brand Name Start Date Product Form Dose Route Admi nistrative Instructions Pharmacy Instructions Status Indications Reaction Description Data Source(s) 17.5-3.13-1.6 gram 09/13/2020 12:00:00 AM EST [facility] USE DIRECTED USE DIRECTED SOLD: 09/13/2020 [facility] Cephalexin 500 MG Oral Capsule CEPHALEXIN 08/23/2020 12:00:00 AM EST capsule 28 TAKE 1 CAPSULE BY MOUTH FOUR TIMES DAILY TAKE 1 CAPSUL E BY MOUTH FOUR TIMES DAILY SOLD: 08/23/2020 [facility] 6 mg 08/07/2020 12:00:00 AM EST tablet extended release 24hr 30 TAKE ONE TABLET BY MOUTH EVERY DAY TAKE ONE TABLET BY MOUTH EVERY DAY SOLD: 09/05/2020 [facility] 6 mg 08/07/2020 12:00:00 AM EST tablet extended release 24hr 30 TAKE ONE TABLET BY MOUTH EVERY DAY TAKE ONE TABLET BY MOUTH EVERY DAY SOLD: 08/07/2020 [facility] 5 mg 07/12/2020 12:00:00 AM EST tablet 30 TAKE ONE TABLET BY MOUTH EVERY DAY TAKE ONE TABLET BY MOUTH EVERY DAY SOLD: 09/13/2020 [facility] 5 mg 07/12/2020 12:00:00 AM EST tablet 30 TAKE ONE TABLET BY MOUTH EVERY DAY TAKE ONE TABLET BY MOUTH EVERY DAY SOLD: 07/14/2020 [facility] 1 mg 07/12/2020 12:00:00 AM EST tablet 30 TAKE ONE TABLET BY MOUTH EVERY DAY AT BEDTIME TAKE ONE TABLET BY MOUTH EVERY DAY AT BEDTIME SOLD: 07/14/2020 [facility] 5 mg 07/12/2020 12:00:00 AM EST tablet 30 TAKE ONE TABLET BY MOUTH EVERY DAY TAKE ONE TABLET BY MOUTH EVERY DAY SOLD: 08/15/2020 [facility] 1 mg 07/12/2020 12:00:00 AM EST tablet 30 TAKE ONE TABLET BY MOUTH EVERY DAY AT BEDTIME TAKE ONE TABLET BY MOUTH EVERY DAY AT BEDTIME SOLD: 08/29/2020 [facility] 10 mg 07/07/2020 12:00:00 AM EST tablet 90 TAKE ONE TO TWO TABLETS BY MOUTH TWICE A DAY NEEDED TAKE ONE TO TWO TABLETS BY MOUTH TWICE A DAY NEEDED SOLD: 07/14/2020 [facility] 5 mg 06/20/2020 12:00:00 AM EST tablet 30 TAKE ONE TABLET BY MOUTH EVERY DAY TAKE ONE TABLET BY MOUTH EVERY DAY SOLD: 06/22/2020 [facility] 1,250 mcg (50,000 unit) 06/16/2020 12:00:00 AM EST capsule 4 TAKE ONE CAPSULE BY MOUTH ONCE WEEKLY TAKE ONE CAPSULE BY MOUTH ONCE WEEKLY SOLD: 07/14/2020 [facility] 1,250 mcg (50,000 unit) 06/16/2020 12:00:00 AM EST capsule 4 TAKE ONE CAPSULE BY MOUTH ONCE WEEKLY TAKE ONE CAPSULE BY MOUTH ONCE WEEKLY SOLD: 09/11/2020 [facility] 1,250 mcg (50,000 unit) 06/16/2020 12:00:00 AM EST capsule 4 TAKE ONE CAPSULE BY MOUTH ONCE WEEKLY TAKE ONE CAPSULE BY MOUTH ONCE WEEKLY SOLD: 08/15/2020 [facility] 6 mg 06/04/2020 12:00:00 AM EDT tablet extended release 24hr 30 TAKE ONE TABLET BY MOUTH EVERY DAY TAKE ONE TABLET BY MOUTH EVERY DAY SOLD: 07/01/2020 [facility] 6 mg 06/04/2020 12:00:00 AM EDT tablet extended release 24hr 30 TAKE ONE TABLET BY MOUTH EVERY DAY TAKE ONE TABLET BY MOUTH EVERY DAY SOLD: 06/07/2020 [facility] 10 mg 06/04/2020 12:00:00 AM EDT tablet 90 TAKE 1-2 TABLETS BY MOUTH 2 TIMES A DAY NEEDED TAKE 1-2 TABLETS BY MOUTH 2 TIMES A DAY NEEDED SOLD : 06/07/2020 [facility] 1,000 mcg/mL 06/02/2020 12:00:00 AM EDT solution 3 INJECT THE CONTENTS OF 1 VIAL (1 ML) INTRAMUSCULARLY EVERY 28 DAYS INJECT THE CONTENTS OF 1 VIAL (1 ML) INTRAMUSCULARLY EVERY 28 DAYS SOLD: 06/04/2020 [facility] 1,000 mcg/mL 06/02/2020 12:00:00 AM EDT solution 3 INJECT THE CONTENTS OF 1 VIAL (1 ML) INTRAMUSCULARLY EVERY 28 DAYS INJECT THE CONTENTS OF 1 VIAL (1 ML) INTRAMUSCULARLY EVERY 28 DAYS SOLD: 09/05/2020 [facility] 10 mg 06/01/2020 12:00:00 AM EDT tablet 20 TAKE 2 TABLETS BY MOUTH TWICE A DAY FOR 2 DAYS THEN TAKE 1 TABLET 2 TIMES A DAY FOR 4 DAYS, THEN 1 TABLET DAILY FOR 4 DAYS TAKE 2 TABLETS BY MOUTH TWICE A DAY FOR 2 DAYS THEN TAKE 1 TABLET 2 TIMES A DAY FOR 4 DAYS, THEN 1 TABLET DAILY FOR 4 DAYS SOLD: 06/01/2020 [facility] Sulfamethoxazole 800 MG / Trimethoprim 160 MG Oral Tab let 800-160 mg SULFAMETHOXAZOLE/TRIMETHOPRIM 06/01/2020 12:00:00 AM EDT tablet 14 TAKE ONE TABLET BY MOUTH EVERY 12 HOURS TAKE ONE TABLET BY MOUTH EVERY 12 HOURS SOLD: 06/01/2020 [facility] 100 mg 05/25/2020 12:00:00 AM EDT tablet 30 TAKE ONE TABLET BY MOUTH EVERY DAY TAKE ONE TABLET BY MOUTH EVERY DAY SOLD: 07/25/2020 [facility] 100 mg 05/25/2020 12:00:00 AM EDT tablet 30 TAKE ONE TABLET BY MOUTH EVERY DAY TAKE ONE TABLET BY MOUTH EVERY DAY SOLD: 05/25/2020 [facility] 100 mg 05/25/2020 12:00:00 AM EDT tablet 30 TAKE ONE TABLET BY MOUTH EVERY DAY TAKE ONE TABLET BY MOUTH EVERY DAY SOLD: 06/25/2020 [facility] 100 mg 05/25/2020 12:00:00 AM EDT tablet 30 TAKE ONE TABLET BY MOUTH EVERY DAY TAKE ONE TABLET BY MOUTH EVERY DAY SOLD: 08/23/2020 [facility] 20 mg 05/21/2020 12:00:00 AM EDT tablet 20 TAKE 3 TABLETS BY MOUTH DAILY ON DAYS 1-3 THEN 2 TABLETS ON DAYS 4-7 AND 1 TABLET ON DAYS 8-10 TAKE 3 TABLETS BY MOUTH DAILY ON DAYS 1-3 THEN 2 TABLETS ON DAYS 4-7 AND 1 TABLET ON DAYS 8-10 SOLD: 05/21/2020 [facility] MAGIC MOUTHWASH 05/21/2020 12:00:00 AM EDT suspension 300 SWISH AND SPIT 10 ML IN MOUTH 4 TIMES DAILY NEEDED FOR MUCOSITIS SWISH AND SPIT 10 ML IN MOUTH 4 TIMES DAILY NEEDED FOR MUCOSITIS SOLD: 05/21/2020 [facility] 500 unit/gram 05/21/2020 12:00:00 AM EDT ointment 28 APPLY TO AFFECTED AREA(S) TWO TIMES A DAY APPLY TO AFFECTED AREA(S) TWO TIMES A DAY SOLD: 05/21/2020 [facility] 1 gram 05/14/2020 12:00:00 AM EDT tablet 15 TAKE ONE TABLET BY MOUTH THREE TIMES A DAY TAKE ONE TABLET BY MOUTH THREE TIMES A DAY SOLD: 05/14/2020 [facility] 3 mg 05/10/2020 12:00:00 AM EDT tablet extended release 24hr 42 TAKE 1 TABLET BY MOUTH EVERY MORNING FOR 2 WEEKS, THEN 2 TABLETS DAILY FOR 2 WEEKS TAKE 1 TABLET BY MOUTH EVERY MORNING FOR 2 WEEKS, THEN 2 TABLETS DAILY FOR 2 WEEKS SOLD: 05/12/2020 [facility] 10 mg 04/27/2020 12:00:00 AM EDT tablet 20 TAKE 2 TABLETS BY MOUTH TWICE DAILY FOR 2 DAYS, 1 TWICE DAILY FOR 4 DAYS, 1 DAILY FOR 4 DAYS, THEN STOP TAKE 2 TABLETS BY MOUTH TWICE DAILY FOR 2 DAYS, 1 TWICE DAILY FOR 4 DAYS, 1 DAILY FOR 4 DAYS, THEN STOP SOLD: 04/28/2020 [facility] 1 mg 04/26/2020 12:00:00 AM EDT tablet 30 TAKE ONE TABLET BY MOUTH AT BEDTIME TAKE ONE TABLET BY MOUTH AT BEDTIME SOLD: 06/22/2020 [facility] 5 mg 04/26/2020 12:00:00 AM EDT tablet 30 TAKE ONE TABLET BY MOUTH EVERY DAY TAKE ONE TABLET BY MOUTH EVERY DAY SOLD: 04/26/2020 [facility] 1 mg 04/26/2020 12:00:00 AM EDT tablet 30 TAKE ONE TABLET BY MOUTH AT BEDTIME TAKE ONE TABLET BY MOUTH AT BEDTIME SOLD: 05/24/2020 [facility] 1 mg 04/26/2020 12:00:00 AM EDT tablet 30 TAKE ONE TABLET BY MOUTH AT BEDTIME TAKE ONE TABLET BY MOUTH AT BEDTIME SOLD: 04/26/2020 [facility] 5 mg 04/26/2020 12:00:00 AM EDT tablet 30 TAKE ONE TABLET BY MOUTH EVERY DAY TAKE ONE TABLET BY MOUTH EVERY DAY SOLD: 06/01/2020 [facility] 1,000 mcg/mL 03/31/2020 12:00:00 AM EDT solution 3 INJECT 1ML INTRAMUSCULARLY ONCE A MONTH INJECT 1ML INTRAMUSCULARLY ONCE A MONTH SOLD: 04/01/2020 [facility] 0.125 mg 02/28/2020 12:00:00 AM EDT tablet,disintegrating 1 DISSOLVE ONE TABLET UNDER THE TONGUE NEEDED FOR 1 DOSE DISSOLVE ONE TABLET UNDER THE TONGUE NEEDED FOR 1 DOSE SOLD: 03/01/2020 [facility] Hyoscyamine Sulfate 0.125 MG Hyoscyamine Sulfate 0.125 MG 12:00:00 AM EDT active Hyoscyamine Sulfa te 0.125 MG eCW1 ([facility]) Hyoscyamine Sulfate 0.125 MG Hyoscyamine Sulfate 0.125 MG 12:00:00 AM EDT active Hyoscyamine Sulfa te 0.125 MG eCW1 ([facility]) Hyoscyamine Sulfate 0.125 MG Hyoscyamine Sulfate 0.125 MG 12:00:00 AM EDT active Hyoscyamine Sulfa te 0.125 MG eCW1 ([facility]) Hyoscyamine Sulfate 0.125 MG Hyoscyamine Sulfate 0.125 MG 12:00:00 AM EDT active Hyoscyamine Sulfa te 0.125 MG eCW1 ([facility]) Hyoscyamine Sulfate 0.125 MG Hyoscyamine Sulfate 0.125 MG 12:00:00 AM EDT active Hyoscyamine Sulfa te 0.125 MG eCW1 ([facility]) Hyoscyamine Sulfate 0.125 MG Hyoscyamine Sulfate 0.125 MG 12:00:00 AM EDT active Hyoscyamine Sulfa te 0.125 MG eCW1 ([facility]) 17.5-3.13-1.6 gram 02/17/2020 12:00:00 AM EDT [facility] 354 MIX AND DRINK DIRECTED FOR COLONOSCOPY MIX AND DRINK DIRECTED FOR COLONOSCOPY SOLD: 02/19/2020 [facility] Suprep Bowel Prep Kit 17.5-3.13-1.6 GM/177ML Suprep Atul wel Prep Kit 17.5-3.13-1.6 GM/177ML 02/17/2020 12:00:00 AM EDT active Suprep Bowel Prep Kit 17.5-3.13-1.6 GM/177ML eCW1 ([facility]) Suprep Bowel Prep Kit 17.5-3.13-1.6 GM/177ML Suprep Atul wel Prep Kit 17.5-3.13-1.6 GM/177ML 02/17/2020 12:00:00 AM EDT active Suprep Bowel Prep Kit 17.5-3.13-1.6 GM/177ML eCW1 ([facility]) Suprep Bowel Prep Kit 17.5-3.13-1.6 GM/177ML Suprep Atul wel Prep Kit 17.5-3.13-1.6 GM/177ML 02/17/2020 12:00:00 AM EDT active Suprep Bowel Prep Kit 17.5-3.13-1.6 GM/177ML eCW1 ([facility]) Suprep Bowel Prep Kit 17.5-3.13-1.6 GM/177ML Suprep Atul wel Prep Kit 17.5-3.13-1.6 GM/177ML 02/17/2020 12:00:00 AM EDT active Suprep Bowel Prep Kit 17.5-3.13-1.6 GM/177ML eCW1 ([facility]) Suprep Bowel Prep Kit 17.5-3.13-1.6 GM/177ML Suprep Atul wel Prep Kit 17.5-3.13-1.6 GM/177ML 02/17/2020 12:00:00 AM EDT active Suprep Bowel Prep Kit 17.5-3.13-1.6 GM/177ML eCW1 ([facility]) 100 mg 01/27/2020 12:00:00 AM EDT tablet 30 TAKE ONE TABLET BY MOUTH ONCE DAILY DIRECTED TAKE ONE TABLET BY MOUTH ONCE DAILY DIRECTED SOLD: 04/26/2020 [facility] 100 mg 01/27/2020 12:00:00 AM EDT tablet 30 TAKE ONE TABLET BY MOUTH ONCE DAILY DIRECTED TAKE ONE TABLET BY MOUTH ONCE DAILY DIRECTED SOLD: 03/27/2020 [facility] 100 mg 01/27/2020 12:00:00 AM EDT tablet 30 TAKE ONE TABLET BY MOUTH ONCE DAILY DIRECTED TAKE ONE TABLET BY MOUTH ONCE DAILY DIRECTED SOLD: 02/26/2020 [facility] 100 mg 01/27/2020 12:00:00 AM EDT tablet 30 TAKE ONE TABLET BY MOUTH ONCE DAILY DIRECTED TAKE ONE TABLET BY MOUTH ONCE DAILY DIRECTED SOLD: 01/27/2020 [facility] 17 gram/dose 01/27/2020 12:00:00 AM EDT powder 238 USE DIRECTED FOR COLONOSCOPY PREP USE DIRECTED FOR COLONOSCOPY PREP SOLD: 01/27/2020 [facility] 5 mg 01/27/2020 12:00:00 AM EDT tablet,delayed release (DR/EC) 4 TAKE 4 TABLETS BY MOUTH ONCE FOR COLONOSCOPY TAKE 4 TABLETS BY MOUTH ONCE FOR COLONOSCOPY SOLD: 01/27/2020 [facility] Bisacodyl 5 MG Delayed Release Oral Tablet [Dulcolax] Dulcolax 5 MG Dulcolax 5 MG 01/26/2020 12:00:00 AM EDT 4.0 {tablets} active Dulcolax 5 MG eCW1 ([facility]) Bisacodyl 5 MG Delayed Release Oral Tablet [Dulcolax] Dulcolax 5 MG Dulcolax 5 MG 01/26/2020 12:00:00 AM EDT 4.0 {tablets} active Dulcolax 5 MG eCW1 ([facility]) Bisacodyl 5 MG Delayed Release Oral Tablet [Dulcolax] Dulcolax 5 MG Dulcolax 5 MG 01/26/2020 12:00:00 AM EDT 4.0 {tablets} active Dulcolax 5 MG eCW1 ([facility]) Bisacodyl 5 MG Delayed Release Oral Tablet [Dulcolax] Dulcolax 5 MG Dulcolax 5 MG 01/26/2020 12:00:00 AM EDT 4.0 {tablets} active Dulcolax 5 MG eCW1 ([facility]) Bisacodyl 5 MG Delayed Release Oral Tablet [Dulcolax] Dulcolax 5 MG Dulcolax 5 MG 01/26/2020 12:00:00 AM EDT 4.0 {tablets} active Dulcolax 5 MG eCW1 ([facility]) BLOOD SUGAR DIAGNOSTIC 01/23/2020 12:00:00 AM EDT strip 50 TEST ONCE DAILY TEST ONCE DAILY SOLD: 04/06/2020 [facility] BLOOD SUGAR DIAGNOSTIC 01/23/2020 12:00:00 AM EDT strip 50 TEST ONCE DAILY TEST ONCE DAILY SOLD: 01/25/2020 [facility] 5 mg 01/20/2020 12:00:00 AM EDT tablet 30 TAKE ONE TABLET BY MOUTH EVERY DAY TAKE ONE TABLET BY MOUTH EVERY DAY SOLD: 01/25/2020 [facility] 1 mg 01/20/2020 12:00:00 AM EDT tablet 30 TAKE ONE TABLET BY MOUTH EVERY DAY AT BEDTIME TAKE ONE TABLET BY MOUTH EVERY DAY AT BEDTIME SOLD: 01/25/2020 [facility] 5 mg 01/20/2020 12:00:00 AM EDT tablet 30 TAKE ONE TABLET BY MOUTH EVERY DAY TAKE ONE TABLET BY MOUTH EVERY DAY SOLD: 02/26/2020 [facility] 5 mg 01/20/2020 12:00:00 AM EDT tablet 30 TAKE ONE TABLET BY MOUTH EVERY DAY TAKE ONE TABLET BY MOUTH EVERY DAY SOLD: 04/01/2020 [facility] 5 mg 01/20/2020 12:00:00 AM EDT tablet 30 TAKE ONE TABLET BY MOUTH EVERY DAY TAKE ONE TABLET BY MOUTH EVERY DAY SOLD: 02/26/2020 [facility] 1 mg 01/20/2020 12:00:00 AM EDT tablet 30 TAKE ONE TABLET BY MOUTH EVERY DAY AT BEDTIME TAKE ONE TABLET BY MOUTH EVERY DAY AT BEDTIME SOLD: 03/05/2020 [facility] 5 mg 01/20/2020 12:00:00 AM EDT tablet 30 TAKE ONE TABLET BY MOUTH EVERY DAY TAKE ONE TABLET BY MOUTH EVERY DAY SOLD: 01/25/2020 [facility] olanzapine 5 MG Oral Tablet OLANZAPINE 01/20/2020 12:00:00 AM EDT tabl et 30 TAKE ONE TABLET BY MOUTH EVERY DAY TAKE ONE TABLET BY MOUTH EVERY DAY SOLD: 04/01/2020 [facility] 17 gram/dose 12/17/2019 12:00:00 AM EDT powder 238 MIX 238MG BOTTLE IN LIQUID AND DRINK DIRECTED FOR COLONOSCOPY MIX 238MG BOTTLE IN LIQUID AND DRINK DIRECTED FOR COLONOSCOPY SOLD: 12/23/2019 [facility] MiraLax - UNK 12/16/2019 12:00:00 AM EDT active MiraLax - eCW1 ([facility]) MiraLax - UNK 12/16/2019 12:00:00 AM EDT active MiraLax - eCW1 ([facility]) MiraLax - UNK 12/16/2019 12:00:00 AM EDT active MiraLax - eCW1 ([facility]) POLYETHYLENE GLYCOL 3350 142 MG/ML Oral Solution [Miralax] M iraLax - MiraLax - 12/16/2019 12:00:00 AM EDT active 250-300gm bottle as directed eCW1 ([facility]) MiraLax - UNK 12/16/2019 12:00:00 AM EDT active MiraLax - eCW1 ([facility]) MiraLax - UNK 12/16/2019 12:00:00 AM EDT active MiraLax - eCW1 ([facility]) MiraLax - UNK 12/16/2019 12:00:00 AM EDT active [facility] - [facility] [facility] POLYETHYLENE GLYCOL 3350 142 MG/ML Oral Solution [Miralax] M iraLax - MiraLax - 12/16/2019 12:00:00 AM EDT active MiraLax - eCW1 ([facility]) 1,250 mcg (50,000 unit) 12/15/2019 12:00:00 AM EDT capsule 4 TAKE ONE CAPSULE BY MOUTH ONCE WEEKLY TAKE ONE CAPSULE BY MOUTH ONCE WEEKLY SOLD: 04/06/2020 [facility] 1,250 mcg (50,000 unit) 12/15/2019 12:00:00 AM EDT capsule 4 TAKE ONE CAPSULE BY MOUTH ONCE WEEKLY TAKE ONE CAPSULE BY MOUTH ONCE WEEKLY SOLD: 02/26/2020 [facility] 1,250 mcg (50,000 unit) 12/15/2019 12:00:00 AM EDT capsule 4 TAKE ONE CAPSULE BY MOUTH ONCE WEEKLY TAKE ONE CAPSULE BY MOUTH ONCE WEEKLY SOLD: 05/09/2020 [facility] 1,250 mcg (50,000 unit) 12/15/2019 12:00:00 AM EDT capsule 4 TAKE ONE CAPSULE BY MOUTH ONCE WEEKLY TAKE ONE CAPSULE BY MOUTH ONCE WEEKLY SOLD: 02/03/2020 [facility] 1,250 mcg (50,000 unit) 12/15/2019 12:00:00 AM EDT capsule 4 TAKE ONE CAPSULE BY MOUTH ONCE WEEKLY TAKE ONE CAPSULE BY MOUTH ONCE WEEKLY SOLD: 12/16/2019 [facility] 125 mcg (5,000 unit) 12/14/2019 12:00:00 AM EDT capsule 30 TAKE ONE CAPSULE BY MOUTH EVERY DAY TAKE ONE CAPSULE BY MOUTH EVERY DAY SOLD: 12/14/2019 [facility] 125 mcg (5,000 unit) 12/14/2019 12:00:00 AM EDT capsule 30 TAKE ONE CAPSULE BY MOUTH EVERY DAY TAKE ONE CAPSULE BY MOUTH EVERY DAY SOLD: 01/14/2020 [facility] 5 mg 12/09/2019 12:00:00 AM EDT tablet 30 TAKE ONE TABLET BY MOUTH EVERY DAY TAKE ONE TABLET BY MOUTH EVERY DAY SOLD: 12/11/2019 [facility] 1 mg 11/27/2019 12:00:00 AM EDT tablet 30 TAKE ONE TABLET BY MOUTH AT BEDTIME TAKE ONE TABLET BY MOUTH AT BEDTIME SOLD: 12/01/2019 [facility] 5 mg 11/27/2019 12:00:00 AM EDT tablet 30 TAKE ONE TABLET BY MOUTH EVERY DAY TAKE ONE TABLET BY MOUTH EVERY DAY SOLD: 11/27/2019 [facility] 5 mg 11/27/2019 12:00:00 AM EDT tablet 30 TAKE ONE TABLET BY MOUTH EVERY DAY TAKE ONE TABLET BY MOUTH EVERY DAY SOLD: 12/28/2019 [facility] BLOOD SUGAR DIAGNOSTIC 11/21/2019 12:00:00 AM EDT strip 50 TEST BLOOD SUGAR ONCE DAILY TEST BLOOD SUGAR ONCE DAILY SOLD: 11/24/2019 [facility] 5 mg 11/17/2019 12:00:00 AM EDT tablet 30 TAKE ONE TABLET BY MOUTH EVERY DAY TAKE ONE TABLET BY MOUTH EVERY DAY SOLD: 11/17/2019 [facility] 5 mg 10/28/2019 12:00:00 AM EDT tablet 30 TAKE ONE TABLET BY MOUTH EVERY DAY TAKE ONE TABLET BY MOUTH EVERY DAY SOLD: 10/28/2019 [facility] 1 mg 10/28/2019 12:00:00 AM EDT tablet 30 TAKE ONE TABLET BY MOUTH EVERY DAY AT BEDTIME TAKE ONE TABLET BY MOUTH EVERY DAY AT BEDTIME SOLD: 10/28/2019 [facility] 5 mg 09/23/2019 12:00:00 AM EST tablet 30 TAKE ONE TABLET BY MOUTH EVERY DAY TAKE ONE TABLET BY MOUTH EVERY DAY SOLD: 09/23/2019 [facility] 5 mg 09/23/2019 12:00:00 AM EST tablet 30 TAKE ONE TABLET BY MOUTH EVERY DAY TAKE ONE TABLET BY MOUTH EVERY DAY SOLD: 10/23/2019 [facility] 5 mg 08/27/2019 12:00:00 AM EST tablet 30 TAKE ONE TABLET BY MOUTH EVERY DAY TAKE ONE TABLET BY MOUTH EVERY DAY SOLD: 08/31/2019 [facility] 5 mg 08/27/2019 12:00:00 AM EST tablet 30 TAKE ONE TABLET BY MOUTH EVERY DAY TAKE ONE TABLET BY MOUTH EVERY DAY SOLD: 09/30/2019 [facility] 28 gauge 08/24/2019 12:00:00 AM EST misc 100 USE TO TEST BLOOD GLUCOSE LEVEL ONCE DAILY USE TO TEST BLOOD GLUCOSE LEVEL ONCE DAILY SOLD: 08/24/2019 [facility] BLOOD SUGAR DIAGNOSTIC 08/24/2019 12:00:00 AM EST strip 50 USE TO TEST ONCE DAILY USE TO TEST ONCE DAILY SOLD: 08/24/2019 [facility] 200 mcg 08/19/2019 12:00:00 AM EST tablet 90 TAKE ONE TABLET BY MOUTH EVERY DAY IN THE MORNING ON AN EMPTY STOMACH TAKE ONE TABLET BY MOUTH EVERY DAY IN MORNING ON AN EMPTY STOMACH SOLD: 05/14/2020 [facility] 200 mcg 08/19/2019 12:00:00 AM EST tablet 90 TAKE ONE TABLET BY MOUTH EVERY DAY IN THE MORNING ON AN EMPTY STOMACH TAKE ONE TABLET BY MOUTH EVERY DAY IN MORNING ON AN EMPTY STOMACH SOLD: 02/15/2020 [facility] 200 mcg 08/19/2019 12:00:00 AM EST tablet 90 TAKE ONE TABLET BY MOUTH EVERY DAY IN THE MORNING ON AN EMPTY STOMACH TAKE ONE TABLET BY MOUTH EVERY DAY IN MORNING ON AN EMPTY STOMACH SOLD: 08/20/2019 [facility] 200 mcg 08/19/2019 12:00:00 AM EST tablet 90 TAKE ONE TABLET BY MOUTH EVERY DAY IN THE MORNING ON AN EMPTY STOMACH TAKE ONE TABLET BY MOUTH EVERY DAY IN MORNING ON AN EMPTY STOMACH SOLD: 08/15/2020 [facility] 5 mg 08/19/2019 12:00:00 AM EST tablet 30 TAKE 1 TABLET BY MOUTH ONCE DAILY TAKE 1 TABLET BY MOUTH ONCE DAILY SOLD: 08/20/2019 [facility] 200 mcg 08/19/2019 12:00:00 AM EST tablet 90 TAKE ONE TABLET BY MOUTH EVERY DAY IN THE MORNING ON AN EMPTY STOMACH TAKE ONE TABLET BY MOUTH EVERY DAY IN TH MORNING ON AN EMPTY STOMACH SOLD: 11/16/2019 [facility] 500 mg 07/30/2019 12:00:00 AM EST tablet 60 TAKE ONE TABLET BY MOUTH TWICE A DAY WITH MEALS TAKE ONE TABLET BY MOUTH TWICE A DAY WITH MEALS SOLD: 07/30/2019 [facility] 1,000 mcg/mL 07/16/2019 12:00:00 AM EST solution 3 INJECT THE CONTENTS OF 1 VIAL INTRAMUSCULARLY ONCE EVERY 28 DAYS INJECT THE CONTENTS OF 1 VIAL INTRAMUSCULARLY ONCE EVERY 28 DAYS SOLD: 10/15/2019 [facility] 1,000 mcg/mL 07/16/2019 12:00:00 AM EST solution 3 INJECT THE CONTENTS OF 1 VIAL INTRAMUSCULARLY ONCE EVERY 28 DAYS INJECT THE CONTENTS OF 1 VIAL INTRAMUSCULARLY ONCE EVERY 28 DAYS SOLD: 07/19/2019 [facility] 1,000 mcg/mL 07/16/2019 12:00:00 AM EST solution 3 INJECT THE CONTENTS OF 1 VIAL INTRAMUSCULARLY ONCE EVERY 28 DAYS INJECT THE CONTENTS OF 1 VIAL INTRAMUSCULARLY ONCE EVERY 28 DAYS SOLD: 12/23/2019 [facility] 1,250 mcg (50,000 unit) 06/12/2019 12:00:00 AM EDT capsule 4 TAKE 1 CAPSULE BY MOUTH ONCE WEEKLY TAKE 1 CAPSULE BY MOUTH ONCE WEEKLY SOLD: 11/03/2019 [facility] 1,250 mcg (50,000 unit) 06/12/2019 12:00:00 AM EDT capsule 4 TAKE 1 CAPSULE BY MOUTH ONCE WEEKLY TAKE 1 CAPSULE BY MOUTH ONCE WEEKLY SOLD: 08/10/2019 [facility] 1,250 mcg (50,000 unit) 06/12/2019 12:00:00 AM EDT capsule 4 TAKE 1 CAPSULE BY MOUTH ONCE WEEKLY TAKE 1 CAPSULE BY MOUTH ONCE WEEKLY SOLD: 08/31/2019 [facility] 1,250 mcg (50,000 unit) 06/12/2019 12:00:00 AM EDT capsule 4 TAKE 1 CAPSULE BY MOUTH ONCE WEEKLY TAKE 1 CAPSULE BY MOUTH ONCE WEEKLY SOLD: 09/23/2019 [facility] 5 mg 04/25/2019 12:00:00 AM EDT tablet 30 TAKE ONE TABLET BY MOUTH EVERY DAY DIRECTED TAKE ONE TABLET BY MOUTH EVERY DAY DIRECTED SOLD: 07/30/2019 [facility] 1 mg 02/28/2019 12:00:00 AM EDT tablet 90 TAKE ONE TABLET BY MOUTH AT BEDTIME TAKE ONE TABLET BY MOUTH AT BEDTIME SOLD: 08/24/2019 [facility] Insurance Providers Payer name Policy type / Coverage type Policy ID Covered constitution party ID Covered constitution party's relationship to rothman Policy Rothman Plan Information EMEDNY [id number] SP [id number] MEDICARE [id number] SP [id number] MEDICAID [id number] S [id number] MEDICARE [id number] S [id number] E09 MEDICAID [id number] S [id number] MCRB [id number] S [id number] MEDICARE [id number] S [id number] MEDICAID PROF FEES [id number] MEDICARE [id number] 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 [id number] MEDICAID [id number] 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 C [id number] MCRB [id number] S [id number] [id number] MEDICARE [id number] S [id number] MEDICAID PROF FEES [id number] S C [id number] MEDICAID [id number] S [id number] MEDICARE [id number] 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 [id number] [facility] MEDICAID [id number] SP [id number] MEDICARE/NATIONAL GOVT SVCS [id number] SP [id number] SELF PAY 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 MEDICAID [id number] SP [id number] ANSI-Medicaid [id number] ANSI-Medicare Part B [id number] MCRB [id number] S [id number] MCRB [id number] S [id number] MCRB [id number] S [id number] MEDICARE [id number] S [id number] MCRB [id number] S [id number] ANSI-Medicaid [id number] ANSI-Medicare Part B [id number] ANSI-Medicaid [id number] ANSI-Medicare Part B [id number] ANSI-Medicare Part B [id number] ANSI-Medicaid [id number] ANSI-Medicare Part B [id number] ANSI-Medicaid [id number] MEDICARE [id number] SP [id number] ANSI-Medicaid [id number] ANSI-Medicare Part B [id number] ANSI-Medicare Part B [id number] ANSI-Medicaid [id number] ANSI-Medicaid [id number] ANSI-Medicare Part B [id number] ANSI-Medicaid [id number] ANSI-Medicare Part B [id number] ANSI-Medicare Part B [id number] ANSI-Medicaid [id number] ANSI-Medicaid [id number] ANSI-Medicare Part B [id number] ANSI-Medicaid [id number] ANSI-Medicare Part B [id number] MCRB [id number] S [id number] ANSI-Medicaid [id number] ANSI-Medicare Part B [id number] ANSI-Medicare Part B [id number] ANSI-Medicaid [id number] ANSI-Medicare Part B [id number] ANSI-Medicaid [id number] MEDICAID M [id number] Self [id number] MEDICARE A [id number] Self [id number] MEDICAID M [id number] S [id number] MEDICARE C [id number] S [id number] [place] Medig[place] Part B [id number] Self [id number] Medicare - [place] Medicare Primary [id number] Self [id number] MEDICAID [id number] Neha [id number] MEDICARE [id number] [facility] [id number] 9C1 MEDICAID [id number] SP [id number] MEDICARE [id number] MEDICAID -O/P [id number] MEDICARE -O/P [id number] 18 [id number] MEDICAID -O/P [id number] Problems, Conditions, and Diagnoses Code Display Name Description Problem Type Effective Dates Data Source(s) Z87.19 Personal history of other diseases of th e digestive system PERSONAL HISTORY OF OTHER DISEASES OF THE DIGESTIV Diagnosis 09/13/2020 12:45:0 0 PM [facility] Z86.711 Personal history of pulmonary embolism P ERSONAL HISTORY OF PULMONARY EMBOLISM Diagnosis 09/13/2020 12:45:00 PM [facility] Z86.718 Personal history of other venous thrombo sis and embolism PERSONAL HISTORY OF OTHER VENOUS THROMBOSIS AND EM Diagnosis 09/13/2020 12:45:0 0 PM [facility] K31.4 Gastric diverticulum GASTRIC DIVERTICULUM Diagnosis 09/13/2020 12:45:00 PM [facility] K50.90 Crohn's disease, unspecified, without co mplications CROHN'S DISEASE, UNSPECIFIED, WITHOUT COMPLICATION Diagnosis 09/13/2020 12:45:00 PM [facility] D63.8 Anemia in other chronic diseases classif ied elsewhere ANEMIA IN OTHER CHRONIC DISEASES CLASSIFIED ELSEWH Diagnosis 09/13/2020 12:45:00 PM [facility] K92.2 Gastrointestinal hemorrhage, unspecified GASTROINTESTINAL HEMORRHAGE, UNSPECIFIED Diagnosis 09/13/2020 12:45:00 PM [facility] 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) IRON DEFICIENCY ANEMIA SECONDARY TO BLOOD LOSS (CHRONIC) Diagnosis 09/13/2020 12:45:00 PM [facility] L03.011 Cellulitis of right finger CELLULITIS OF RIGHT FINGER Diagnosis 08/27/2020 06:39:00 AM [facility] Z48.01 Encounter for change or removal of surgi amilcar wound dressing ENCOUNTER FOR CHANGE OR REMOVAL OF SURGICAL WOUND DRESSING Diagnosis 06:39:00 AM [facility] L03.113 Cellulitis of right upper limb CELLULITIS OF RIGHT UPP ER LIMB Diagnosis 08/24/2020 08:05:00 AM [facility] Z48.817 Encounter for surgical after care following surgery on the skin and subcutaneous tissue ENCNTR FOR SURGICAL AFTCR FOL SURGERY ON THE SKIN, SUB CU Diagnosis 08/24/2020 08:05:00 AM [facility] I82.402 Acute embolism and thrombosi s of unspecified deep veins of left lower extremity ACUTE EMBOLISM AND THOMBOS UNSP DEEP VEINS OF L LOW EXTREM D iagnosis 08/19/2020 04:01:00 PM [facility] Z79.899 Other terminal manager (current) drug therapy O THER [facility] (CURRENT) DRUG THERAPY Diagnosis 08/16/2020 01:30:00 PM [facility] K50.911 Crohn's disease, unspecified, with recta l bleeding CROHN'S DISEASE, UNSPECIFIED, WITH RECTAL BLEEDING Diagnosis 08/16/2020 01:30:00 PM [facility] K52.9 Noninfective gastroenteritis and colitis , unspecified NONINFECTIVE GASTROENTERITIS AND COLITIS, UNSPECIFIED Diagnosis 08/10/2020 07:29:00 AM [facility] E89.0 Postprocedural hypothyroidism POSTPROCEDURAL HYPOTHYRO IDISM Diagnosis 08/02/2020 08:10:00 AM [facility] Z12.31 Encounter for screening mammogram for ma lignant neoplasm of breast ENCNTR SCREEN MAMMOGRAM FOR MALIGNANT NEOPLASM OF BREAST Diagnosis 08:38:00 AM [facility] D64.9 Anemia, unspecified ANEMIA, UNSPECIFIED Diagnosis 1 08/23/2019 08:20:00 AM [facility] I82.402 Acute embolism and thrombosi s of unspecified deep veins of left lower extremity I82.402 Diagnosis 06/23/2020 08:20:[address] [facility] E55.9 Vitamin D deficiency, unspecified VITAMIN D DEFI CIENCY, UNSPECIFIED Diagnosis 06/04/2020 08:40:00 AM [facility] F20.0 Paranoid schizophrenia PARANOID SCHIZOPHRENIA Diagnosi s 06/04/2020 08:40:00 AM [facility] N39.0 Urinary tract infection, site not specif ied URINARY TRACT INFECTION, SITE NOT SPECIFIED Diagnosis 06/03/2020 08:22:00 AM EDT [facility] K50.90 Crohn's disease, unspecified, without co mplications CROHN'S DISEASE, UNSPECIFIED, WITHOUT COMPLICATIONS Diagnosis 05/25/2020 07:23:00 AM ED [facility] E11.9 Type 2 diabetes mellitus without complic ations TYPE 2 DIABETES MELLITUS WITHOUT COMPLICATIONS Diagnosis 03/26/2020 01:44:00 PM EDT [facility] K50.813 Crohn's disease of both small and large intestine with fistula CROHN'S DISEASE OF BOTH SMALL AND LARGE INTESTINE W FISTULA Diagnosis 08:13:00 AM EDT [facility] Z53.29 Procedure and treatment not carried out because of patient's decision for other reasons PROC/TRTMT NOT CRD OUT BEC PT DECISION FOR OTH REASONS Diagn osis 02/27/2020 07:44:[address] [facility] K50.813 Crohn's disease of both small and large intestine with fistula CROHN'S DISEASE OF BOTH SMALL AND LARGE INTESTINE W FISTULA Diagnosis 07:44:00 AM T [facility] Z79.84 [facility] (CURRENT) USE OF ORAL HYPOGLYC EMIC DRUGS [facility] (CURRENT) USE OF ORAL HYPOGLYCEMIC DRUGS Diagnosis 02/24/2020 06:59:00 AM EDT [facility] F20.9 Schizophrenia, unspecified SCHIZOPHRENIA, UNSPECIFIED Diagnosis 02/24/2020 06:59:00 AM EDT [facility] E11.9 Type 2 diabetes mellitus without complic ations TYPE 2 DIABETES MELLITUS WITHOUT COMPLICATIONS Diagnosis 02/24/2020 06:59:00 AM EDT [facility] jairoal K62.89 Other specified diseases of anus and rec sharif OTHER SPECIFIED DISEASES OF ANUS AND RECTUM Diagnosis 02/24/2020 06:59:00 AM EDT [facility] D12.5 Benign neoplasm of sigmoid colon BENIGN NEOPLASM OF SIGMOID COLON Diagnosis 02/24/2020 06:59:00 AM T [facility] D12.0 Benign neoplasm of cecum BENIGN NEOPLASM OF CECUM Diag nosis 02/24/2020 06:59:00 AM EDT [facility] K50.813 Crohn's disease of both small and large intestin e with fistula K50.813 Diagnosis 02/24/2020 06:59:00 AM EDT [facility] Z12.11 Encounter for screening for malignant ne oplasm of colon ENCOUNTER FOR SCREENING FOR MALIGNANT NEOPLASM OF COLON Diagnosis 02/24/2020 06:59:0 0 AM EDT [facility] Z32.00 Encounter for test, result unk nown ENCOUNTER FOR TEST, RESULT UNK Diagnosis 02/24/2020 06:05:00 AM EDT [facility] Z11.59 Encounter for screening for other viral diseases ENCOUNTER FOR SCREENING FOR OTHER VIRAL DISEASES Diagnosis 02/20/2020 07:14:00 AM [facility] Z85.850 Personal history of malignant neoplasm o f thyroid PERSONAL HISTORY OF MALIGNANT NEOPLASM OF THYROID Diagnosis 02/19/2020 03:06:00 PM EDT [facility] E89.0 Postprocedural hypothyroidism POSTPROCEDURAL HYPOTHYRO IDISM Diagnosis 02/19/2020 03:06:00 PM [facility] D64.9 Anemia, unspecified ANEMIA, UNSPECIFIED Diagnosis 0 02/03/2020 07:37:[address] [facility] C73 Malignant neoplasm of thyroid gland MALIGNANT NE OPLASM OF THYROID GLAND Diagnosis 08/18/2019 02:53:00 PM [facility] Z86.72 Personal history of thrombophlebitis PER GABBY HISTORY OF THROMBOPHLEBITIS Diagnosis 08/18/2019 10:53:00 AM [facility] D53.9 Nutritional anemia, unspecified NUTRITIONAL ANEMIA, UN SPECIFIED Diagnosis 08/18/2019 10:53:00 AM [facility] E55.9 Vitamin D deficiency, unspecified VITAMIN D DEFI CIENCY, UNSPECIFIED Diagnosis 08/02/2019 08:12:00 AM [facility] Z79.899 Other terminal manager (current) drug therapy O THER [facility] (CURRENT) DRUG THERAPY Diagnosis 07/29/2019 04:12:00 PM [facility] Surgeries/Procedures Procedure Description Date Indications Data Source(s) EMERGENCY DEPARTMENT VISIT LOW/MODER SEVERITY EMERGENCY DEPT VISIT 08/27/2020 12:00:00 AM [facility] URNLS DIP STICK/TABLET REAGENT AUTO MICROSCOPY URINALYSIS AU TO W/SCOPE 06/03/2020 12:00:00 AM EDT [facility] outpatient clinic visit for assessment and ma sharon of a patient Hospital Outpatient Clinic Visit 02/19/2020 12:00:00 AM EDT [facility] Telephone MCR 21 ore more Mins 12/16/2019 12:00:00 AM EDT eCW1 ([facility]) Results ID Date Data Source [id number] 09/13/2020 12:29:00 PM EST David tidwell Exam Number: [id number] OF EXAMINATIO N: 09/13/2020 10:17 ESTUGI/SMALL BOWEL FLW THRUHISTORY: Crohn's diseaseFLUOROSCOPY TIME: 1 minute 18 secondsNUMBER OF IMAGES: [id number] EXAM:There is a 2 cm diverticulum arising from the gastric cardia. There isno ulceration. Normal rugal folds are noted. Duodenal bulb and theremainder of the duodenum appear normal.IMPRESSION:2 cm diverticulum of the gastric cardiaSMALL BOWEL FOLLOW-THROUGH EXAM:Jejunal and ileal loops appear unremarkable. There is no definiteinflammatory change or fistulization. An IVC filter is noted.IMPRESSION:Unremarkable small bowel follow-thro ugh.Electronically signed in PS360 by: Luis Luna M.D. 112:17 EST Reported By: Ezequiel LUNA M.D. Signed By: Tanner LUNA M.D. Name Value Range Interpretation Code Description Data Ambreen rce(s) Supporting Document(s) ID Date Data Source [id number] 09/12/2020 10:45:00 AM EST [facility] Name Value Range Interpretation Code Description Data Ambreen rce(s) Supporting Document(s) SARS coronavirus 2 RNA Not Detected [facility] [place] This lab was ordered by [facility] and reported by [facility]. ID Date Data Source [id number] 09/08/2020 10:37:00 PM EST David tidwell PREETI Albert [address] [address] FOLLOW UP NOTENAME: LISA PEREZ MPHYSICIAN: DHEERAJ MARTINATE OF SERVICE: 08/16/20DATE OF : [birth year]ACCOUNT #: [id number]: LISA Schwab KIMISDate: Aug 16OB: 1975Physician: Dr. Marty aGrcia M.D., M.P.H.Harjinder Gimenez M.D.Dr. Andrés Noble M.D.Age: 45Note Title: Hematology/Medical Oncology Follow UpDiagnosis:Primary - I82.402 - Acute embolism and thrombosis of unspecified deep veins ofleft lower extremity, Diagnosed Jun 26, 2017 (Active)History of Problems:Problems / Chief Complaints:Anemia, Left LE DVT, h/o PE, crohn's diseaseGI bleedingarthritisHistory of Present Illness:patient is s/p IV iron due to chronic bleeding secondary to irritable boweldisease. Patient is being referred to a new GI doctor, Dr. Gentile [facility]. Patient's last colonoscopy was in February, patient was told byrecent/local stock dealer that her disease is very advanced and needsfurther work-up. Patient had a fever 2 weeks ago, was found to have a fingerinfection and is now on Keflex 4 times a day. Patient reports resolution offinger pain and any recent fevers, night sweats, chills. Patient says she stillbleeding intermittently from the rectum although it has subsided . Patient ishere to review her blood work, and is wondering if she should continue IV iron.Past Medical History:AnemiaBlood clotsC.diff colitisCrohn'sDiabetesSchizophreniaThyroid problems (Thyroid Cancer)Past Surgical History:ThyroidectomyAllergies:Balsalazide DisodiumCurrent Medications:Cyanocobalamin 1,000 mcg (of 1000 mcg/mL) Injection q 28 days (May 27, 2018)Vitamin B12 1,000 mcg Intramuscular q 28 days (Jun 10, 2018)Benztropine Mesylate 1 mg Tablet Oral at bedtime (Start Date - unknown)Haloperidol 2 mg Tablet Oral at bedtime (Start Date - unknown)Invega 6 mg Tablet SR 24 HR Oral daily (Start Date - unknown)Levothyroxine Sodium 175 mcg Tablet Oral daily (Start Date - unknown)PredniSONE 20 mg Tablet Oral daily (Start Date - unknown)Stelara 390 mg Injection q 56 days (Start Date - unknown)TraMADol HCl 50 mg Tablet Oral four times a day PRN (Start Date - unknown)ZyPREXA 5 mg Tablet Oral daily (Start Date - unknown)magic mouth wash Liquid Oral daily (Start Date - unknown)Social History:Ms. PEREZ is . Ms. PEREZ has never smoked. She has no history ofdrinking.Family History:father has rheumatoid arthritis.Review of Systems:ConstitutionalAbnormal - fatigue has improvedAllergic/ImmunologicNormal - Denies allergies and adverse reactions.HeadNormal - Denies alopecia.EyesNormal - No significant visual difficulties. No diplopia.ENMTAbnormal - mouth sores.NeckNormal - Denies neck masses, muscle weakness, neck pain, decreased range ofmotion and swelling of the neck.EndocrineNormal - has diabetes, hot flashes, menstrual irregularities and thyroiddisease.Hematologic/LymphaticAbnormal - blood in stools.BreastsNormal - No abnormal masses of breast, no nipple discharge or pain.RespiratoryNormal - No dyspnea on exertion, chest pain, cough or hemoptysis.CardiovascularNormal - No anginal chest pain, palpitations or orthopnea.GastrointestinalAbnormal - crohn's diseaseGenitourinary (F)Normal - Denies dysuria, frequency, genital masses, hematuria, incontinence,nocturia, renal stone disease, problems with sexual function, urgency, urinecolor change, vaginal discharge / bleeding and vaginal spotting.MusculoskeletalAbnormal - recent shingles outbreak of right arm; now some erythematouspatches noted; no crusted lesions;IntegumentaryNormal - new vesicular raised lesions of right forearm; tx with valcyclovir;shingles?NeurologicNormal - No headache, blurred vision, and no areas of focal weakness ornumbness. Normal gait. No sensory problems.PsychiatricAbnormal - paranoid schizophreniaVital Signs:Performed on Aug 16, 2020 13:13Jxhnuh65.75 ikXibbnk230 lbs(LOW)BSA (derived)1.66 sq.mBMI28.80Gnskjfaltll39.4 F(HIGH)Pulse80 /wgdWdpvnngwmid85 /ofoOT081/82Pulse Oximetry (O2 Sat)94 %(LOW)Fall RiskLow RiskPerformance Status:1 - No physically strenuous activity, but ambulatory and able to carry outlight or sedentary work (e.g. office work, light house work). (ECOG)Physical Exam:ConstitutionalNormal - No evidence of impaired alertness, inadequate appearance, prematureor advanced chronologic age, uncooperativeness, developmental delays, alteredmood and affect and disorientation.HeadNormal - No evidence of alopecia, abnormal cephalic and scars.EyesNormal - No evidence of conjunctivitis, keratitis, hardening of the lens,nonreactive pupil(s), retinal abnormalities and scleral abnormalit ies.ENMTNormal - No evidence of ear abnormalities, oral abnormalities, nasalobstruction, oropharynx obstruction, sinusitis, throat abnormalities and tongueabnormalities.NeckNormal - No evidence of distension, tender or enlarged lymph nodes, neckabnormalities, restricted range of motion and enlarged thyroid gland.Hematologic/LymphaticNormal - No evidence of tender or enlarged axillae lymph nodes, tender orenlarged lymph nodes, tender or enlarged groin lymph nodes, tender or enlargedneck lymph nodes and petechiae / purpura / ecchymosis.RespiratoryNormal - No evidence of abnormal breath sounds, chest a bnormalities onpalpation and chest abnormalities on percussion.CardiovascularNormal - No evidence of arterial pulse(s) abnormalities, abnormal heart rate,heart arrhythmia and abnormal heart sounds.ChestNormal - No evidence of chest abnormalities and tender or enlarged lymphnodes.AbdomenNormal - No evidence of abdominal abnormalities, abnormal bowel sounds,hepatomegaly and splenomegaly.GastrointestinalNormal - No evidence of anal and/or perineal abnormalities and rectalabnormalities.GenitourinaryNormal - No evidence of bladder dysfunction and kidney dysfunction.Back/SpineNormal - No evidence of reduced flexibility and abnormal spinal curvature.ExtremitiesNormal - No evidence of lower extremities abnormalities, tender or enlargedlymph nodes and upper extremities abnormalities.MusculoskeletalNormal - No evidence of bone abnormalities, joints, joint abnormalities,compromised muscle tone and restricted range of motion.IntegumentaryAbnormal - infection of nail noted.NeurologicNormal - No evidence of impaired cranial nerve(s), uncoordinated gait, motorimpairment, a sensory deficit and impaired reflexes.PsychiatricNormal - No evidence of altered affect, lack of comprehension anddisorientation.Laboratory:Test performed on Jun 23, 2020 09:71YSW83.16 x10E3/uLRBC4.13 x10E6/uL(LOW)HGB9.9 g/dL(LOW)HCT32.7 %(LOW)MCV79.2 fL(LOW)MCH24.0 pg(LOW)MCHC30.3 g/dL(LOW)RDW18.0 %(HIGH)Platelet Awjzy254 x10E3/uLMPV8.8 flNeutrophils7.11 x10E3/uLLymphocytes1.76 x10E3/uLMonocytes1.09 x10E3/uL(HIGH)Eosinophils0.14 x10E3/uLBasophils0.03 x10E3/uLImmature Grans0.03 x10E3/uLNeutrophil %70.0 %(HIGH)Lymphocyte %17.3 %(LOW)Monocyte %10.7 %(HIGH)Eosinophil %1.4 %Basophils %0.3 %Immature Grans %0.3 %Other test results are not available for this patient.Impression:#1 Crohn's diseasePatient on Stelara, likely refractory to Stelara. Follow-up with GI forfurther recommendations. We will also recheck to GI to see if there is anyinput regarding the patient's increased total protein, depressed albumin.Patient's IgG level is increased. This is noted in the polyclonal pattern butshe has only IgG is elevated.patient [facility] has appt nxt weekuntil complete bleeding cessation; we will continue IV iron; pt hct showingreflection of response to iron.#2 recurrent left lower extremity DVT,No longer on DVT prophylaxis.#3. High IgG, total protein elevation. Peripheral blood flow cytometry showsrare CD38 positive cells, CD56 negative, kappa positive, expressing plasmacells detected, this is present in 0.02%. I do not know what to determine fromthis peripheral blood flow cytometry. Although an abnormal finding, patientSPEP, immunofixation was negative, a polyclonal pattern was noted with anisolated IgG. For further investigation, patient I thought iw as important t0have a bone marrow bx to rule out any underlying disease given her age andcomorbidities and atypical plasma cell findings in peripheral blood. Velasquez, thepatient's bone marrow biopsy shows a polytypic plasma cell population, that is7%. There is no other diagnostic morphologic evidence of hematopoieticneoplasia. Normocellular marrow for age, mild nonspecific dyserythropoiesisand mild megakaryocytic hyperplasia with no increase in blasts are noted. Lowlevel polytypic plasma cell infiltrate was noted. Smear did not show anyplasma cell population on repeat testing done with the marrow.Plan:I do not see the patient's blood work, I have asked her to repeat her CBC andiron studies to assess if she should continue intravenous iron.Patient canfollow-up in 1 to 2 weeks for the results of iron studies and then will be setup for continuous iron if necessary until her GI symptoms have been controlled.Patient awaiting [place] gastroenterologistElectronically signed by:Dr. Andrés NobleCC: Name Value Range Interpretation Code Description Data Ambreen rce(s) Supporting Document(s) ID Date Data Source [id number] 08/30/2020 08:25:00 PM [facility] PREETI Albert [address] [address] FOLLOW UP NOTENAME: LISA PEREZ MPHYSICIAN: DHEERAJ MARTINATE OF SERVICE: 08/30/20DATE OF : [birth year]ACCOUNT #: [id number]: LISA Schwab KIMISDate: Aug 301DOB: 1975Physician: Dr. Marty Garcia M.D., M.P.H.Harjinder Gimenez M.D.Dr. Andrés Noble M.D.Age: 45Note Title: Hematology/Medical Oncology Follow UpDiagnosis:Primary - I82.402 - Acute embolism and thrombosis of unspecified deep veins ofleft lower extremity, Diagnosed Jun 26, 2017 (Active)History of Problems:Problems / Chief Complaints:Anemia, Left LE DVT, h/o PE, crohn's diseaseGI bleedingarthritisHistory of Present Illness:Patient is status post follow-up for review blood work patient is stillanemic, patient is receiving IV iron due to chronic bleeding secondary toirritable bowel disease. Patient is being referred to a new GI doctor, in [place]. Patient's last colonoscopy was in February, patient wastold by recent/local stock dealer that her disease is very advanced andneeds further work-up. Patient had a fever 2 weeks ago, was found to have afinger infection and is now on Keflex 4 times a day. Patient reportsresolution of finger pain and any recent fevers, night sweats, chills.Patientsays she still bleeding intermittently from the rectum although it has subsidedsomewhatPast Medical History:AnemiaBlood clotsC.diff colitisCrohn'sDiabetesSchizophreniaThyroid problems (Thyroid Cancer)Past Surgical History:ThyroidectomyAllergies:Balsalazide DisodiumCurrent Medications: Cyanocobalamin 1,000 mcg (of 1000 mcg/mL) Injection q 28 days (May 27, 2018)Vitamin B12 1,000 mcg Intramuscular q 28 days (Jun 10, 2018)Benztropine Mesylate 1 mg Tablet Oral at bedtime (Start Date - unknown)Haloperidol 2 mg Tablet Oral at bedtime (Start Date - unknown)Invega 6 mg Tablet SR 24 HR Oral daily (Start Date - unknown)Levothyroxine Sodium 175 mcg Tablet Oral daily (Start Date - unknown)PredniSONE 20 mg Tablet Oral daily (Start Date - unknown)Stelara 390 mg Injection q 56 days (Start Date - unknown)TraMADol HCl 50 mg Tablet Oral four times a day PRN (Start Date - unknown)ZyPREXA 5 mg Tablet Oral daily (Start Date - unknown)magic mouth wash Liquid Oral daily (Start Date - unknown)Social History:Ms. PEREZ is . Ms. PEREZ has never smoked. She has no history ofdrinking.Family History:father has rheumatoid arthritis.Review of Systems:ConstitutionalAbnormal - fatigue has improvedAllergic/ImmunologicNormal - Denies allergies and adverse reactions.HeadNormal - Denies alopecia.EyesNormal - No significant visual difficulties. No diplopia.ENMTAbnormal - mouth sores.NeckNormal - Denies neck masses, muscle weakness, neck pain, decreased range ofmotion and swelling of the neck.EndocrineNormal - has diabetes, hot flashes, menstrual irregularities and thyroiddisease.Hematologic/LymphaticAbnormal - blood in stools.BreastsNormal - No abnormal masses of breast, no nipple discharge or p ain.RespiratoryNormal - No dyspnea on exertion, chest pain, cough or hemoptysis.CardiovascularNormal - No anginal chest pain, palpitations or orthopnea.GastrointestinalAbnormal - crohn's diseaseGenitourinary (F)Normal - Denies dysuria, frequency, genital masses, hematuria, incontinence,nocturia, renal stone disease, problems with sexual function, urgency, urinecolor change, vaginal discharge / bleeding and vaginal spotting.MusculoskeletalAbnormal - recent shingles outbreak of right arm; now some erythematouspatches noted; no crusted lesions;IntegumentaryNormal - new vesicular raised lesions of right forearm; tx with valcyclovir;shingles?NeurologicNormal - No headache, blurred vision, and no areas of focal weakness ornumbness. Normal gait. No sensory problems.PsychiatricAbnormal - paranoid schizophreniaVital Signs:Performed on Aug 30, 2020 13:04Afjnpl33.75 bjSxtrjp903.2 lbs(LOW)BSA (derived)1.65 sq.mBMI27.52Bfzenwecfgi06.3 QHkqir388 /min(HIGH)Eymmwtwhxyh34 /qurJA087/70Pulse Oximetry (O2 Sat)96 %Fall RiskLow RiskPerformance Status:1 - No physically strenuous activity, but ambulatory and able to carry outlight or sedentary work (e.g. office work, light house work). (ECOG)Physical Exam:ConstitutionalNormal - No evidence of impaired alertness, inadequate appearance, prematureor advanced chronologic age, uncooperativeness, developmental delays, alteredmood and affect and disorientation.HeadNormal - No evidence of alopecia, abnormal cephalic and scars.EyesNormal - No evidence of conjunctivitis, keratitis, hardening of the lens,nonreactive pupil(s), retinal abnormalities and scleral abnormalities. ENMTAbnormal - oral ulceration noted; right tongue, base of tongueNeckNormal - No evidence of distension, tender or enlarged lymph nodes, neckabnormalities, restricted range of motion and enlarged thyroid gland.Hematologic/LymphaticNormal - No evidence of tender or enlarged axillae lymph nodes, tender orenlarged lymph nodes, tender or enlarged groin lymph nodes, tender or enlargedneck lymph nodes and petechiae / purpura / ecchymosis.RespiratoryNormal - No evidence of abnormal breath sounds, chest abnormalities onpalpation and chest abnormalities on percussion.CardiovascularNormal - No evidence of arterial pulse(s) abnormalities, abnormal heart rate,heart arrhythmia and abnormal heart sounds.ChestNormal - No evidence of chest abnormalities and tender or enlarged lymphnodes.AbdomenNormal - No evidence of abdominal abnormalities, abnormal bowel sounds,hepatomegaly and splenomegaly.GastrointestinalNormal - No evidence of anal and/or perineal abnormalities and rectalabnormalities.GenitourinaryNorma l - No evidence of bladder dysfunction and kidney dysfunction.Back/SpineNormal - No evidence of reduced flexibility and abnormal spinal curvature.ExtremitiesNormal - No evidence of lower extremities abnormalities, tender or enlargedlymph nodes and upper extremities abnormalities.MusculoskeletalNormal - No evidence of bone abnormalities, joints, joint abnormalities,compromised muscle tone and restricted range of motion.IntegumentaryAbnormal - rasised vesciular lesions of right forearm; now less erythematous,right arm is less swollen.NeurologicNormal - No evidence of impaired cranial nerve(s), uncoordinated gait, motorimpairment, a sensory deficit and impaired reflexes.PsychiatricNormal - No evidence of altered affect, lack of comprehension anddisorientation.Laboratory:Test performed on Jun 23, 2020 09:11UNN69.16 x10E3/uLRBC4.13 x10E6/uL(LOW)HGB9.9 g/dL(LOW)HCT32.7 %(LOW)MCV79.2 fL(LOW)MCH24.0 pg(LOW)MCHC30.3 g/dL(LOW)RDW18.0 %(HIGH)Platelet Ldvar104 x10E3/uLMPV8.8 flNeutrophils7.11 x10E3/uLLymphocytes1.76 x10E3/uLMonocytes1.09 x10E3/uL(HIGH)Eosinophils0.14 x10E3/uLBasophils0.03 x10E3/uLImmature Grans0.03 x10E3/uLNeutrophil %70.0 %(HIGH)Lymphocyte %17.3 %(LOW)Monocyte %10.7 %(HIGH)Eosinophil %1.4 %Basophils %0.3 %Immature Grans %0.3 %Other test results are not available for this patient.Impression:#1 Crohn's diseasePatient on Stelara, likely refractory to Stelara. Follow-up with GI forfurther recommendations. We will also recheck to GI to see if there is anyinput regarding the patient's increased total protein, depressed albumin.Patient's IgG level is increased. This is noted in the polyclonal pattern butshe has only IgG is elevated.patient referred [facility] has appt nxt weekuntil complete bleeding cessation; we will continue IV iron; pt hct showingreflection of response to iron.#2 recurrent left lower extremity DVT,No longer on DVT prophylaxis.#3. High IgG, total protein elevation. Peripheral blood flow cytometry showsrare CD38 positive cells, CD56 negative, kappa positive, expressing plasmacells detected, this is present in 0.02%. I do not know what to determine fromthis peripheral blood flow cytometry. Although an abnormal finding, patientSPEP, immunofixation was negative, a polyclonal pattern was noted with anisolated IgG. For further investigation, patient I thought iw as important t0have a bone marrow bx to rule out any underlying disease given her age andcomorbidities and atypical plasma cell findings in peripheral blood. Velasquez, thepatient's bone marrow biopsy shows a polytypic plasma cell population, that is7%. There is no other diagnostic morp hologic evidence of hematopoieticneoplasia. Normocellular marrow for age, mild nonspecific dyserythropoiesisand mild megakaryocytic hyperplasia with no increase in blasts are noted. Lowlevel polytypic plasma cell infiltrate was noted. Smear did not show anyplasma cell population on repeat testing done with the marrow.Plan:obtain new GI recsfor now continue IV ironcbc before next visitf/u in 3 months.Electronically signed by:Dr. Andrés NobleCC: Name Value Range Interpretation Code Description Data [facility] rce(s) Supporting Document(s) ID Date Data Source [id number] 08/25/2020 07:45:00 AM EST [facility] Procedure Performed By: [facility] [address] [place] [address] Director: Miguelangel Shearer MD . QUANTITY: Many {STAPHYLOCOCCUS AUREUS} STAPHYLOCOCCUS AUREUSSCT Name Value Range Interpretation Code Description Data [facility] rce(s) Supporting Document(s) ID Date Data Source [id number] 08/25/2020 07:45:00 AM EST [facility] Procedure Performed By: [facility] [address] [place] [address] Director: Miguelangel Shearer MD . QUANTITY: Many {STAPHYLOCOCCUS AUREUS} STAPHYLOCOCCUS AUREUSSCT Name Value Range Interpretation Code Description Data [facility] Supporting Document(s) Vancomycin 1 Susceptible. Indicates for m icrobiology susceptibilities only. [facility] Doxycycline Susceptible. Indicates for m icrobiology susceptibilities only. [facility] Daptomycin Susceptible. Indicates for microbiol ogy susceptibilities only. [facility] Clindamycin Susceptible. Indicates for m icrobiology susceptibilities only. [facility] Erythromycin Susceptible. Indicates for m icrobiology susceptibilities only. [facility] Gentamicin Susceptible. Indicates for microbiol ogy susceptibilities only. [facility] Linezolid 2 Susceptible. Indicates for microbiol ogy susceptibilities only. [facility] Moxifloxacin Susceptible. Indicates for m icrobiology susceptibilities only. [facility] Oxacillin PAULETTE Susceptible. Ind icates for microbiology susceptibilities only. [facility] Rifampin Susceptible. Indicates for microbiol ogy susceptibilities only. [facility] Tetracycline Susceptible. Indicates for m icrobiology susceptibilities only. [facility] Trimeth/Sulfamethoxazole Suscept ible. Indicates for microbiology susceptibilities only. [facility] ID Date Data Source [id number] 08/28/2020 12:44:00 PM EST [facility] NO GROWTH AFTER 120 HOURS (5 Days) Pr ocedure Performed By: [facility] [address] [place] [address] Director: Violet Head Name Value Range Interpretation Code Description Data Ambreen rce(s) Supporting Document(s) ID Date Data Source [id number] 08/25/2020 09:40:00 AM EST [facility] Name Value Range Interpretation Code Description Data Ambreen rce(s) Supporting Document(s) Wound Culture [facility] ospital ID Date Data Source [id number] 08/25/2020 09:40:00 AM EST [facility] Name Value Range Interpretation Code Description Data Ambreen rce(s) Supporting Document(s) Vancomycin 1 Susceptible. Indicates for m icrobiology susceptibilities only. [facility] Doxycycline Susceptible. Indicates for m icrobiology susceptibilities only. [facility] Daptomycin Susceptible. Indicates for microbiol ogy susceptibilities only. [facility] Clindamycin Susceptible. Indicates for m icrobiology susceptibilities only. [facility] Erythromycin Susceptible. Indicates for m icrobiology susceptibilities only. [facility] Gentamicin Susceptible. Indicates for microbiol ogy susceptibilities only. [facility] Linezolid 2 Susceptible. Indicates for microbiol ogy susceptibilities only. [facility] Moxifloxacin Susceptible. Indicates for m icrobiology susceptibilities only. [facility] Oxacillin PAULETTE Susceptible. Ind icates for microbiology susceptibilities only. [facility] Rifampin Susceptible. Indicates for microbiol ogy susceptibilities only. [facility] Tetracycline Susceptible. Indicates for m icrobiology susceptibilities only. [facility] Trimeth/Sulfamethoxazole Suscept ible. Indicates for microbiology susceptibilities only. [facility] ID Date Data Source [id number] 08/28/2020 01:42:00 PM EST Velia richardson NO GROWTH AFTER 120 HOURS (5 Days) Proc edure Performed By: [facility] [address] [place] [address] Director: Violet Head Name Value Range Interpretation Code Description Data Ambreen rce(s) Supporting Document(s) ID Date Data Source [id number] 08/28/2020 12:44:00 PM EST [facility] NO GROWTH AFTER 120 HOURS (5 Days) Pr ocedure Performed By: [facility] [address] [place] [address] Director: Violet Head Name Value Range Interpretation Code Description Data Ambreen rce(s) Supporting Document(s) ID Date Data Source [id number] 08/28/2020 01:42:00 PM EST [facility] sp[facility] NO GROWTH AFTER 120 HOURS (5 Days) Proc edure Performed By: [facility] [address] [place] [address] Director: Violet Head Name Value Range Interpretation Code Description Data Ambreen rce(s) Supporting Document(s) ID Date Data Source [id number] 08/22/2020 05:40:00 PM [facility] Name Value Range Interpretation Code Description Data [facility] rce(s) Supporting Document(s) Sodium 135 mmol/L 136-145 Below low normal [facility]spital Potassium 3.5-5.1 Normal (applies to non-numeric resul ts) [facility] Chloride 100 mmol/L 98-107 Normal (applies to non-numeric resul ts) [facility] Carbon Dioxide CO2 21-32 Normal (applies to non-numer ic results) [facility] Anion Gap 5.0-16.0 Normal (applies to non-numeric resul ts) [facility] BUN 12 mg/dL 7-18 Normal (applies to non-numeric results) [facility] Creatinine,Serum 0.7-1.2 Normal (applies to non-numeric results) [facility] GFR >60 Normal (applies to non-numeric results) [facility] Glucose Level 151 mg/dL 60-99 Above high normal [facility] Reference range is only applicable when patient is fasting Note the following drug interference: Sulfasalazine Sulfapyridine Can see falsely depressed Can see falsely elevated result with up to 17% results with up to 11% decrease in measurement increase in measurement Recommend patients be collected for this test prior to administration of either drug. Calcium 8.5-10.1 Below low normal [facility] sp[facility] Bilirubin,Total 0.1-1.9 Normal (applies to non-numeric results) [facility] SGOT(AST) 12 U/L 15-37 Below low normal [facility] sp[facility] Note the following drug interference: Sulfasalazine Sulfapyridine Can see falsely depressed Can see falsely elevated result with up to 10% results with up to 10% decrease in measurement increase in measurement Recommend patients be collected for this test prior to administration of either drug. SGPT(ALT) 12 U/L 12-78 Normal (applies to non-numeric resul ts) [facility] Note the following drug interference: Sulfasalazine Sulfapyridine Can see falsely depressed Can see falsely elevated result with up to 29% results with up to 10% decrease in measurement increase in measurement Recommend patients be collected for this test prior to administration of either drug. Alkaline Phosphatase 99 U/L 38-126 Normal (applies to non-num yocasta results) [facility] can increase Alkaline Phosp le vels up to 2 times the normal adult value. Normal values for children and adolescents are 2 to 3 times the normal adult value. Total Protein 6.0-8.2 Normal (applies to non-numeric re sults) [facility] Albumin Level 3.4-5.0 Below low normal [facility] ID Date Data Source [id number] 08/22/2020 05:23:00 PM [facility] Name Value Range Interpretation Code Description Data Ambreen rce(s) Supporting Document(s) Lactic Acid 0.4-2.0 Normal (applies to non-numeric resu lts) [facility] ID Date Data Source [id number] 08/22/2020 05:02:00 PM [facility] Name Value Range Interpretation Code Description Data Ambreen rce(s) Supporting Document(s) White Blood Count 3.5-10.5 Normal (applies to non-numeri c results) [facility] Red Blood Count 3.90-5.00 Normal (applies to non-numeric results) [facility] Hemoglobin 12.0-15.5 Below low normal [facility] ospital Hematocrit 34.9-44.5 Normal (applies to non-numeric resul ts) [facility] Mean Corpuscular Volume 81.2-95.1 Normal (applies to non- numeric results) [facility] Mean Corpuscular Hgb 25.6-32.2 Normal (applies to non-num yocasta results) [facility] Mean Corpuscular Hgb Conc 32.0-36.0 Below low normal [facility] Red Cell Distribution Width 11.9-15.5 Above high normal [facility] Platelet Count 393 x10 3/uL 150-450 Normal (applies to non-numeric results) [facility] Mean Platelet Volume 9.4-12.4 Below low normal [facility] Neutrophils% (Auto) 31.0-71.0 Normal (applies to non-nume klaudia results) [facility] Lymphocytes% (Auto) 20.0-55.[address] [facility] Monocytes% (Auto) 4.0-12.0 Normal (applies to non-numeri c results) [facility] Eosinophils% (Auto) 1.0-8.0 Normal (applies to non-nume klaudia results) [facility] Basophils% (Auto) 0.0-2.0 Normal (applies to non-numeri c results) [facility] Immature Granulocytes% (Auto) 0.0-2.0 Normal (marvin lies to non-numeric results) [facility] Neutrophils# (Auto) 1.50-6.20 Normal (applies to non-nume klaudia results) [facility] Lymphocytes# (Auto) 1.20-4.00 Normal (applies to non-nume klaudia results) [facility] Monocytes# (Auto) 0.00-0.90 Normal (applies to non-numeri c results) [facility] Eosinophils# (Auto) 0.00-0.50 Normal (applies to non-nume klaudia results) [facility] Basophils# (Auto) 0.00-0.20 Normal (applies to non-numeri c results) [facility] Immature Granulocytes# (Auto) 0.00-7.00 No rmal (applies to non-numeric results) [facility] ID Date Data Source [id number] 08/23/2020 09:15:00 AM [facility] Imaging Services Department Imaging Report [address], [place] [address] %(RAD)RES..mtdd.print.filter("line") Name: LISA PEREZ : 1975 Age/Sex: 45F Ordering Provider: HOMER [facility] Rec #: [id number] Reg Status: DEP ER Room #: Date of Service: 08/22/20 Report Number: [id number] cc:Sincere Zambrano Reason, DO Send Report To: [id number] XRP/XR 4th Finger Rt, Ring Reason for exam: infection Comparison: None. FINDINGS: No acute fracture or dislocations. The joint spaces are intact. No evidence of bony erosions. Moderate soft tissue edema is seen along the dis diann interphalangeal joint. No radiopaque foreign bodies are evident. IMPRESSION: Moderate soft tissue edema in the distal interphalangeal joint. Noacute osseous abnormalities. Time portable performed: Fluoroscopy time in seconds: Number of Exposures: Contrast Agent in ml: Method of Administration: REPORT SIGNATURE ON FILE Reported By: Gilmer Mcdonald MD <Electronically signed by Gilmer Mcdonald MD> 08/23/20 1113 Dictation Date/Time: 08/22/20 1737 Transcribed Date/Time: 08/23/20 0915 Manager Transit: MARICARMEN Name Value Range Interpretation Code Description Data Ambreen rce(s) Supporting Document(s) ID Date Data Source [id number] 08/19/2020 05:27:00 PM [facility] Name Value Range Interpretation Code Description Data Ambreen rce(s) Supporting Document(s) Sodium 136 mmol/L 136-145 Normal (applies to non-numeric resul ts) [facility] Potassium 3.5-5.1 Normal (applies to non-numeric resul ts) [facility] Chloride 99 mmol/L 98-107 Normal (applies to non-numeric resul ts) [facility] Carbon Dioxide CO2 21-32 Normal (applies to non-numer ic results) [facility] Anion Gap 5.0-16.0 Normal (applies to non-numeric resul ts) [facility] BUN 14 mg/dL 7-18 Normal (applies to non-numeric results) [facility] Creatinine,Serum 0.7-1.2 Normal (applies to non-numeric results) [facility] GFR >60 Normal (applies to non-numeric results) [facility] Glucose Level 143 mg/dL 60-99 Above high normal [facility] Reference range is only applicable when patient is fasting Note the following drug interference: Sulfasalazine Sulfapyridine Can see falsely depressed Can see falsely elevated result with up to 17% results with up to 11% decrease in measurement increase in measurement Recommend patients be collected for this test prior to administration of either drug. Calcium 8.5-10.1 Normal (applies to non-numeric resul ts) [facility] Bilirubin,Total 0.1-1.9 Normal (applies to non-numeric results) [facility] SGOT(AST) 7 U/L 15-37 Below low normal [facility] Note the following drug interference: Sulfasalazine Sulfapyridine Can see falsely depressed Can see falsely elevated result with up to 10% results with up to 10% decrease in measurement increase in measurement Recommend patients be collected for this test prior to administration of either drug. SGPT(ALT) 11 U/L 12-78 Below low normal [facility] Note the following drug interference: Sulfasalazine Sulfapyridine Can see falsely depressed Can see falsely elevated result with up to 29% results with up to 10% decrease in measurement increase in measurement Recommend patients be collected for this test prior to administration of either drug. Alkaline Phosphatase 106 U/L 38-126 Normal (applies to non-num yocasta results) [facility] can increase Alkaline Phosp le vels up to 2 times the normal adult value. Normal values for children and adolescents are 2 to 3 times the normal adult value. Total Protein 6.0-8.2 Normal (applies to non-numeric re sults) [facility] Albumin Level 3.4-5.0 Below low normal [facility] ID Date Data Source [id number] 08/19/2020 05:01:00 PM EST [facility] Name Value Range Interpretation Code Description Data Ambreen rce(s) Supporting Document(s) White Blood Count 3.5-10.5 Above high normal [facility] Red Blood Count 3.90-5.00 Normal (applies to non-numeric results) [facility] Hemoglobin 12.0-15.5 Below low normal [facility] ospital Hematocrit 34.9-44.5 Normal (applies to non-numeric resul ts) [facility] Mean Corpuscular Volume 81.2-95.1 Normal (applies to non- numeric results) [facility] Mean Corpuscular Hgb 25.6-32.2 Below low normal [facility] Mean Corpuscular Hgb Conc 32.0-36.0 Below low normal [facility] Red Cell Distribution Width 11.9-15.5 Above high normal [facility] Platelet Count 427 x10 3/uL 150-450 Normal (applies to non-numeric results) [facility] Mean Platelet Volume 9.4-12.4 Below low normal [facility] Neutrophils% (Auto) 31.0-71.0 Above high normal [facility] Lymphocytes% (Auto) 20.0-55.[address] [facility] Monocytes% (Auto) 4.0-12.0 Normal (applies to non-numeri c results) [facility] Eosinophils% (Auto) 1.0-8.0 Normal (applies to non-nume klaudia results) [facility] Basophils% (Auto) 0.0-2.0 Normal (applies to non-numeri c results) [facility] Immature Granulocytes% (Auto) 0.0-2.0 Normal (marvin lies to non-numeric results) [facility] Neutrophils# (Auto) 1.50-6.20 Above high normal [facility] Lymphocytes# (Auto) 1.20-4.00 Normal (applies to non-nume klaudia results) [facility] Monocytes# (Auto) 0.00-0.90 Normal (applies to non-numeri c results) [facility] Eosinophils# (Auto) 0.00-0.50 Normal (applies to non-nume klaudia results) [facility] Basophils# (Auto) 0.00-0.20 Normal (applies to non-numeri c results) [facility] Immature Granulocytes# (Auto) 0.00-7.00 No rmal (applies to non-numeric results) [facility] ID Date Data Source [id number] 08/18/2020 09:29:00 AM [facility] Name Value Range Interpretation Code Description Data Ambreen rce(s) Supporting Document(s) Respiratory specimen severe acute respir atory syndrome coronavirus 2 (SARS-CoV-2) RNA [facility] This lab was ordered by [facility] and reported by . ID Date Data Source [id number] 08/18/2020 09:18:00 AM EST [facility] Name Value Range Interpretation Code Description Data Ambreen rce(s) Supporting Document(s) SARS-CoV-2 RNA INHOUSE Negative Normal (applies to non-n umeric results) [facility] THIS IS A STATE REPORTABLE COMMUNICABLE DISEASE. Testing was performed using the [employer] COVID-19 MDx Assay. This test has been authorized by FDA under an (Emergency Use Authorization) EUA for use by authorized laboratories for individuals who are suspected of COVID-19 by their healthcare provider. This test is only authorized for the duration of the declaration that circumstances exist justifying the authorization of emergency use of in vitro diagnostic tests for detection and/or diagnosis of SARS-CoV-2. Methodology: Endpoint RT-PCR. Fact sheets for this EUA assay can be found at the following links: Providers: https://www.fda.gov/media/214537/download Patients : https://www.fda.gov/media/473529/download THIS IS A [facility] REPORTABLE COMMUNICABLE DISEASE Negative results do not preclude SARS-CoV-2 infection and should not be used as the sole basis for patient management decisions. Negative results must be combined with clinical observations,patient history, and epidemiological information. ID Date Data Source [id number] 08/10/2020 09:04:00 AM [facility] Name Value Range Interpretation Code Description Data Ambreen rce(s) Supporting Document(s) Bilirubin,Total 0.1-1.9 Normal (applies to non-numeric results) [facility] Bilirubin,Direct 0.05-0.20 Normal (applies to non-numeric results) [facility] SGOT(AST) 8 U/L 15-37 Below low normal [facility] Note the following drug interference: Sulfasalazine Sulfapyridine Can see falsely depressed Can see falsely elevated result with up to 10% results with up to 10% decrease in measurement increase in measurement Recommend patients be collected for this test prior to administration of either drug. SGPT(ALT) 16 U/L 12-78 Normal (applies to non-numeric resul ts) [facility] Note the following drug interference: Sulfasalazine Sulfapyridine Can see falsely depressed Can see falsely elevated result with up to 29% results with up to 10% decrease in measurement increase in measurement Recommend patients be collected for this test prior to administration of either drug. Alkaline Phosphatase 92 U/L 38-126 Normal (applies to non-num yocasta results) [facility] can increase Alkaline Phosp le vels up to 2 times the normal adult value. Normal values for children and adolescents are 2 to 3 times the normal adult value. Total Protein 6.0-8.2 Normal (applies to non-numeric re sults) [facility] Albumin Level 3.4-5.0 Below low normal [facility] ID Date Data Source [id number] 08/10/2020 08:18:00 AM [facility] Name Value Range Interpretation Code Description Data Ambreen rce(s) Supporting Document(s) White Blood Count 3.5-10.5 Normal (applies to non-numeri c results) [facility] Red Blood Count 3.90-5.00 Normal (applies to non-numeric results) [facility] Hemoglobin 12.0-15.5 Below low normal [facility] ospital Hematocrit 34.9-44.5 Normal (applies to non-numeric resul ts) [facility] Mean Corpuscular Volume 81.2-95.1 Normal (applies to non- numeric results) [facility] Mean Corpuscular Hgb 25.6-32.2 Below low normal [facility] Mean Corpuscular Hgb Conc 32.0-36.0 Below low normal [facility] Red Cell Distribution Width 11.9-15.5 Above high normal [facility] Platelet Count 420 x10 3/uL 150-450 Normal (applies to non-numeric results) [facility] Mean Platelet Volume 9.4-12.4 Below low normal [facility] Neutrophils% (Auto) 31.0-71.0 Above high normal [facility] Lymphocytes% (Auto) 20.0-55.[address] [facility] Monocytes% (Auto) 4.0-12.0 Normal (applies to non-numeri c results) [facility] Eosinophils% (Auto) 1.0-8.0 Normal (applies to non-nume klaudia results) [facility] Basophils% (Auto) 0.0-2.0 Normal (applies to non-numeri c results) [facility] Immature Granulocytes% (Auto) 0.0-2.0 Normal (marvin lies to non-numeric results) [facility] Neutrophils# (Auto) 1.50-6.20 Normal (applies to non-nume klaudia results) [facility] Lymphocytes# (Auto) 1.20-4.[address] [facility] Monocytes# (Auto) 0.00-0.90 Normal (applies to non-numeri c results) [facility] Eosinophils# (Auto) 0.00-0.50 Normal (applies to non-nume klaudia results) [facility] Basophils# (Auto) 0.00-0.20 Normal (applies to non-numeri c results) [facility] Immature Granulocytes# (Auto) 0.00-7.00 No rmal (applies to non-numeric results) [facility] ID Date Data Source [id number] 08/10/2020 08:18:00 AM EST [facility] Name Value Range Interpretation Code Description Data Ambreen rce(s) Supporting Document(s) Erythrocyte Sedimentation rate 61 mm/hr 0-20 Above high ramon l [facility] ID Date Data Source [id number] 08/02/2020 10:09:00 PM EST [facility] [address] [place] [id number] FOLLOW UP NOTENAME: LISA PEREZ MPHYSICIAN: ANDRÉS NOBLE MDDATE OF SERVICE: 07/05/20DATE OF : [birth year]ACCOUNT #: [id number]: LISA ALVAREZISDate: Jul 05, 2020DOB: 1975Physician: Dr. Marty Garcia M.D., M.P.H.Harjinder Gimenez M.D.Dr. Andrés Noble M.D.Age: 45Note Title: Hematology/Medical Oncology Follow UpDiagnosis:Primary - I82.402 - Acute embolism and thrombosis of unspecified deep veins ofleft lower extremity, Diagnosed Jun 26, 2017 (Active)History of Problems:Problems / Chief Complaints:Anemia, Left LE DVT, h/o PE, crohn's diseaseGI bleedingarthritisHistory of Present Illness:Pt here with mother to review results of marrow. sp marrow last week. no acutecomplications or events since last encounter.Past Medical History:AnemiaBlood clotsC.diff colitisCrohn'sDiabetesSchizophreniaThyroid problems (Thyroid Cancer)Past Surgical History:ThyroidectomyAllergies:Balsalazide DisodiumCurrent Medications:Cyanocobalamin 1,000 mcg (of 1000 mcg/mL) Injection q 28 days (May 27, 2018)Iron Sucrose 200 mg Intravenous once over 15 minutes in NS 100 mL (1) at therate of 440 mL/hr (2018)Vitamin B12 1,000 mcg Intramuscular q 28 days (Jun 10, 2018)Benztropine Mesylate 1 mg Tablet Oral at bedtime (Start Date - unknown)Haloperidol 2 mg Tablet Oral at bedtime (Start Date - unknown)Invega 6 mg Tablet SR 24 HR Oral daily (Start Date - unknown)Levothyroxine Sodium 175 mcg Tablet Oral daily (Start Date - unknown)PredniSONE 20 mg Tablet Oral daily (Start Date - unknown)Stelara 390 mg Injection q 56 days (Start Date - unknown)TraMADol HCl 50 mg Tablet Oral four times a day PRN (Start Date - unknown)ZyPREXA 5 mg Tablet Oral daily (Start Date - unknown)magic mouth wash Liquid Oral daily (Start Date - unknown)Social History:Ms. PEREZ is . Ms. PEREZ has never smoked. She has no history ofdrinking.Family History:father has rheumatoid arthritis.Review of Systems:ConstitutionalAbnormal - fatigue has improvedAllergic/ImmunologicNormal - Denies allergies and adverse reactions.HeadNormal - Denies alopecia.EyesNormal - No significant visual difficulties. No diplopia.ENMTAbnormal - mouth sores.NeckNormal - Denies neck masses, muscle weakness, neck pain, decreased range ofmotion and swelling of the neck.EndocrineNormal - has diabetes, hot flashes, menstrual irregularities and thyroiddisease.Hematologic/LymphaticAbnormal - blood in stools.BreastsNormal - No abnormal masses of breast, no nipple discharge or pain.RespiratoryNormal - No dyspnea on exertion, chest pain, cough or hemoptysis.CardiovascularNormal - No anginal chest pain, palpitations or orthopnea.GastrointestinalAbnormal - crohn's diseaseGenitourinary (F)Normal - Denies dysuria, frequency, genital masses, hematuria, incontinence,nocturia, renal stone disease, problems with sexual function, urgency, urinecolor change, vaginal discharge / bleeding and vaginal spotting.MusculoskeletalAbnormal - recent shingles outbreak of right arm; now some erythematouspatches noted; no crusted lesions;IntegumentaryNormal - new vesicular raised lesions of right forearm; tx with valcyclovir;shingles?NeurologicNormal - No headache, blurred vision, and no areas of focal weakness ornumbness. Normal gait. No sensory problems.PsychiatricAbnormal - paranoid schizophreniaVital Signs:Performed on Jul 05, 2020 13:38Jvkutg86.75 dkLocvrk969 lbs(HIGH)BSA (derived)1.68 sq.mBMI29.50Zgrkkyubsbf53 WYbcgx304 /min(HIGH)Axcwlsfngml31 /gikDH646/80Pulse Oximetry (O2 Sat)97 %Fall RiskModerate RiskPerformance Status:1 - No physically strenuous activity, but ambulatory and able to carry outlight or sedentary work (e.g. office work, light house work). (ECOG)Physical Exam:ConstitutionalNormal - No evidence of impaired alertness, inadequate appearance, prematureor advanced chronologic age, uncooperativeness, developmental delays, alteredmood and affect and disorientation.HeadNormal - No evidence of alopecia, abnormal cephalic and scars.EyesNormal - No evidence of conjunctivitis, keratitis, hardening of the lens,nonreactive pupil(s), retinal abnormalities and scleral abnormalities.ENMTAbnormal - oral ulceration noted; right tongue, base of tongueNeckNormal - No evidence of distension, tender or enlarged lymph nodes, neckabnormalities, restricted range of motion and enlarged thyroid gland.Hematologic/LymphaticNormal - No evidence of tender or enlarged axillae lymph nodes, tender orenlarged lymph nodes, tender or enlarged groin lymph nodes, tender or enlargedneck lymph nodes and petechiae / purpura / ecchymosis.RespiratoryNormal - No evidence of abnormal breath sounds, chest abnormalities onpalpation and chest abnormalities on percussion.CardiovascularNormal - No evidence of arterial pulse(s) abnormalities, abnormal heart rate,heart arrhythmia and abnormal heart sounds.ChestNormal - No evidence of chest abnormalities and tender or enlarged lymphnodes.AbdomenNormal - No evidence of abdominal abnormalities, abnormal sarai l sounds,hepatomegaly and splenomegaly.GastrointestinalNormal - No evidence of anal and/or perineal abnormalities and rectalabnormalities.GenitourinaryNormal - No evidence of bladder dysfunction and kidney dysfunction.Back/SpineNormal - No evidence of reduced flexibility and abnormal spinal curvature.ExtremitiesNormal - No evidence of lower extremities abnormalities, tender or enlargedlymph nodes and upper extremities abnormalities.MusculoskeletalNormal - No evidence of bone abnormalities, joints, joint abnormalities,compromised muscle tone and restricted range of motion.IntegumentaryAbnormal - rasised vesciular lesions of right forearm; now less erythematous,right arm is less swollen.NeurologicNormal - No evidence of impaired cranial nerve(s), uncoordinated gait, motorimpairment, a sensory deficit and impaired reflexes.PsychiatricNormal - No evidence of altered affect, lack of comprehension anddisorientation.Laboratory:Test performed on Jun 23, 2020 09:86UZJ58.16 x10E3/uLRBC4.13 x10E6/uL(LOW)HGB9.9 g/dL(LOW)HCT32.7 %(LOW)MCV79.2 fL(LOW)MCH24.0 pg(LOW)MCHC30.3 g/dL(LOW)RDW18.0 %(HIGH)Platelet Zweaf534 x10E3/uLMPV8.8 flNeutrophils7.11 x10E3/uLLymphocytes1.76 x10E3/uLMonocytes1.09 x10E3/uL(HIGH)Eosinophils0.14 x10E3/uLBasophils0.03 x10E3/uLImmature Grans0.03 x10E3/uLNeutrophil %70.0 %(HIGH)Lymphocyte %17.3 %(LOW)Monocyte %10.7 %(HIGH)Eosinophil %1.4 %Basophils %0.3 %Immature Grans %0.3 %Other test results are not available for this patient.Impression:#1 chronic anemia multifactorial in the setting of nutritional deficiency,anemia of chronic inflammation and anemia of iron deficiency, chronic FUmkevpmjep47 and iv iron indicated;#2 recurrent left lower extremity DVT,No longer on DVT prophylaxis.#3 Crohn's diseasePatient on Stelara, likely refractory to Stelara. Follow-up with GI forfurther recommendations. We will also recheck to GI to see if there is anyinput regarding the patient's increased total protein, depressed albumin.Patient's IgG level is increased. This is noted in the polyclonal pattern butshe has only IgG is elevated.follow up GI notecontinue IV iron as pt is still having exceration of IBD reusliting in GIB.4. High IgG, total protein elevation. Peripheral blood flow cytometry showsrare CD38 positive cells, CD56 negative, kappa positive, expressing plasmacells detected, this is present in 0.02%. I do not know what to determine fromthis peripheral blood flow cytometry. Although an abnormal finding, patientSPEP, immunofixation was negative, a polyclonal pattern was noted with anisolated IgG. For further investigation, patient I thought iw as important t0have a bone marrow bx to rule out any underlying disease given her age andcomorbidities and atypical plasma cell findings in peripheral blood. Velasquez, thepatient's bone marrow biopsy shows a polytypic plasma cell population, that is7%. There is no other diagnostic morphologic evidence of hematopoieticneoplasia. Normocellular marrow for age, mild nonspecific dyserythropoiesisand mild megakaryocytic hyperplasia with no increase in blasts are noted. Lowlevel polytypic plasma cell infiltrate was noted. Smear did not show anyplasma cell population on repeat testing done with the marrow.Plan:IV Iron weekly; as pt is still having chronic blood lossmonitor hct;f/;u GI recs.Electronically signed by:Dr. Andrés NobleCC: Name Value Range Interpretation Code Description Data Ambreen e(s) Supporting Document(s) ID Date Data Source [id number] 08/04/2020 05:37:00 PM EST [facility] Name Value Range Interpretation Code Description Data Ambreen rce(s) Supporting Document(s) Thyroglobulin Antibody result <1.8 Normal (applies t o non-numeric results) [facility] Thyroglobulin Tumor Marker res Very abnor mal (applies to non-numeric units [facility] REFERENCE VALUE------ Athyrotic <0.1 Intact Thyroid <=33 Thyroglobulin(TM)Interp Normal (applies to non- numeric results) [facility] Thyroglobulin (Tg) levels must be interp reted in the context of TSH levels, serial Tg measurements and radioiodine ablation status. Tg levels of 0.1-2.0 ng/mL in athyrotic individuals on suppressive therapy indicate a low risk of clinically detectable recurrent papillary/follicular thyroid cancer. ADDITIONAL INFORMATION PLEASE NOTE: A thyroglobulin antibody (TgAb) reference cutoff of <4.0 IU/mL may be more suitable for the evaluation of autoimmune thyroiditis. Thyroglobulin flagging is based on athyrotic reference values. The thyroglobulin and thyroglobulin antibody testing methods are immunoenzymatic assays manufactured by [employer] and performed on the [employer] 800. Values obtained from different assay methods or kits may be different and cannot be used interchangeably. The results cannot be interpreted as absolute evidence for the presence or absence of malignant disease. Test Performed by: [facility] [id number] [place] [address] Golf Cart Assembler: Rubens Zamarripa M.D. Ph.D.; CLIA# [id number] ID Date Data Source [id number] 08/04/2020 04:46:[address] [facility] Name Value Range Interpretation Code Description Data Ambreen rce(s) Supporting Document(s) Thyroglobulin Antibody result <1.8 Normal (applies t o non-numeric results) [facility] Thyroglobulin Tumor Marker res [place] [facility] REFERENCE VALUE------ Athyrotic <0.1 Intact Thyroid <=33 Thyroglobulin(TM)Interp Normal (applies to non- numeric results) [facility] Thyroglobulin (Tg) levels must be interp reted in the context of TSH levels, serial Tg measurements and radioiodine ablation status. Tg levels of 0.1-2.0 ng/mL in athyrotic individuals on suppressive therapy indicate a low risk of clinically detectable recurrent papillary/follicular thyroid cancer. ADDITIONAL INFORMATION PLEASE NOTE: A thyroglobulin antibody (TgAb) reference cutoff of <4.0 IU/mL may be more suitable for the evaluation of autoimmune thyroiditis. Thyroglobulin flagging is based on athyrotic reference values. The thyroglobulin and thyroglobulin antibody testing methods are immunoenzymatic assays manufactured by [employer] and performed on the [employer] DXI 800. Values obtained from different assay methods or kits may be different and cannot be used interchangeably. The results cannot be interpreted as absolute evidence for the presence or absence of malignant disease. Test Performed by: [facility] [address] [place] [address] Golf Cart Assembler: Rubens Zamarripa M.D. Ph.D.; CLIA# [id number] ID Date Data Source [id number] 08/02/2020 10:16:00 AM [facility] Name Value Range Interpretation Code Description Data Ambreen rce(s) Supporting Document(s) Thyroid Stimulate Hormone TSH 0.358-3.74 Below low normal [facility] ID Date Data Source [id number] 08/02/2020 10:16:00 AM [facility] Name Value Range Interpretation Code Description Data Ambreen rce(s) Supporting Document(s) Free T4 (Free Thyroxine) 0.76-1.46 Above high normal [facility] ID Date Data Source [id number] 07/26/2020 03:55:00 PM [facility] Imaging Services Department Imaging Report [address], [place] [address] Name: LISA PEREZ : 1975 Age/Sex: 45F Ordering Provider: HOMER Blair Med Rec #: [id number] Date of Service: 07/26/20 Report Number: [id number] cc: Sincere Zambrano Reason, DO; HOMER Blair Send Report To: [id number] MAMMOSCR/Screening Digtl Tania w [place] CAD Reason for Exam: MAMMO SCREENING Patient States Last CBE: 06-18-20 Is this a follow up exam: Follow up to: Patient's Courtney Model Lifetime risk of developing breast cancer: 7.6% No prior exam is available for comparison. FINDINGS: Craniocaudad and oblique views of the breasts were obtained and combined with Tomosynthesis views in the same projections. The breasts are composed of scattered fibroglandular densities. There is no dominant mass, suspicious clustered calcification, nor architectural distortion. IMPRESSION: NO MAMMOGRAPHIC EVIDENCE OF MALIGNANCY. YEARLY SCREENING RECOMMENDED. This mammogram was performed digitally and interpreted with the aid of ICAD, an FDA-approved, computer-aided detection system. OVERALL FINAL ASSESSMENT OF BREAST COMPOSITION: BIRADS CLASSIFICATION: B DESCRIPTION: There are scattered areas of fibroglandular density. OVERALL FINAL ASSESSMENT OF FINDINGS: BIRADS CLASSIFICATION: 1 DESCRIPTION: NEGATIVE. REPORT SIGNATURE ON FILE 07/27/20 1022 Reported By: Yao Martínez MD <Electronically signed by Kurtis Martínez MD>07/27/20 1022 Dictation Date/Time: 07/26/20 1157 Transcribed Date/Time: 07/26/20 5056 Manager Transit: MARIANNA Name Value Range Interpretation Code Description Data Ambreen rce(s) Supporting Document(s) ID Date Data Source [id number] 07/06/2020 07:58:00 PM EST [facility] [address] [address] FOLLOW UP NOTENAME: LISA PEREZ MPHYSICIAN: DHEERAJ MARTINATE OF SERVICE: 06/08/20DATE OF : [birth year]ACCOUNT #: [id number]: LISA ALVAREZISDate: Jun 08, 2020DOB: 1975Physician: Dr. Marty Garcia M.D., M.P.H.Harjinder Gimenez M.D.Dr. Andrés Noble M.D.Age: 45Note Title: Hematology/Medical Oncology Follow UpDiagnosis:Primary - I82.402 - Acute embolism and thrombosis of unspecified deep veins ofleft lower extremity, Diagnosed Jun 26, 2017 (Active)History of Problems:Problems / Chief Complaints:Anemia, Left LE DVT, h/o PE, crohn's diseaseGI bleedingarthritisHistory of Present Illness:Patient has a long standing history of Crohn's disease managed with differentimmunosuppressive therapy. Patient was recently noted to have total proteinthat was elevated with a low albumin. Patient was having a Crohn's flare,likely secondary to medication refractoriness. She is here receiving iron dueto iron deficiency anemia from the Crohn's flare. Patient has low energy,increasing fatigue, bloody stools, recurrent ulcers, recurrent infectionsnoted. Patient's blood work was sent for flow cytometry for assessment due torecurrent infections.Past Medical History:AnemiaBlood clotsC.diff colitisCrohn'sDiabetesSchizophreniaThyroid problems (Thyroid Cancer)Past Surgic al History:ThyroidectomyAllergies:Balsalazide DisodiumCurrent Medications:Cyanocobalamin 1,000 mcg (of 1000 mcg/mL) Injection q 28 days (May 27, 2018)Vitamin B12 1,000 mcg Intramuscular q 28 days (Jun 10, 2018)Benztropine Mesylate 1 mg Tablet Oral at bedtime (Start Date - unknown)Haloperidol 2 mg Tablet Oral at bedtime (Start Date - unknown)Invega 6 mg Tablet SR 24 HR Oral daily (Start Date - unknown)Levothyroxine Sodium 175 mcg Tablet Oral daily (Start Date - unknown)PredniSONE 20 mg Tablet Oral daily (Start Date - unknown)Stelara 390 mg Injection q 56 days (Start Date - unknown)TraMADol HCl 50 mg Tablet Oral four times a day PRN (Start Date - unknown)ZyPREXA 5 mg Tablet Oral daily (Start Date - unknown)magic mouth wash Liquid Oral daily (Start Date - unknown)Social History:Ms. PEREZ is . Ms. PEREZ has never smoked. She has no history ofdrinking.Family History:father has rheumatoid arthritis.Review of Systems:ConstitutionalAbnormal - fatigue has improvedAllergic/ImmunologicNormal - Denies allergies and adverse reactions.HeadNormal - Denies alopecia.EyesNormal - No significant visual difficulties. No diplopia.ENMTAbnormal - mouth sores.NeckNormal - Denies neck masses, muscle weakness, neck pain, decreased range ofmotion and swelling of the neck.EndocrineNormal - has diabetes, hot flashes, menstrual irregularities and thyroiddisease.Hematologic/LymphaticAbnormal - blood in stool s.BreastsNormal - No abnormal masses of breast, no nipple discharge or pain.RespiratoryNormal - No dyspnea on exertion, chest pain, cough or hemoptysis.CardiovascularNormal - No anginal chest pain, palpitations or orthopnea.GastrointestinalAbnormal - crohn's diseaseGenitourinary (F)Normal - Denies dysuria, frequency, genital masses, hematuria, incontinence,nocturia, renal stone disease, problems with sexual function, urgency, urinecolor change, vaginal discharge / bleeding and vaginal spotting.MusculoskeletalAbnormal - recent shingles outbreak of right arm; now some erythematouspatches noted; no c rusted lesions;IntegumentaryNormal - new vesicular raised lesions of right forearm; tx with valcyclovir;shingles?NeurologicNormal - No headache, blurred vision, and no areas of focal weakness ornumbness. Normal gait. No sensory problems.PsychiatricAbnormal - paranoid schizophreniaVital Signs:Performed on Jun 08, 2020 15:53Esghua25.75 tcHapfyjutkki21.5 RNddou365 /min(HIGH)Qoslgxhirws37 /yquXI810/64Pulse Oximetry (O2 Sat)97 %Performance Status:0 - Fully active, able to carry on all predisease activities withoutrestrictions. (ECOG)Physical Exam:ConstitutionalNormal - No evidence of impaired alertness, inadequate appearance, prematureor advanced chronologic age, uncooperativeness, developmental delays, alteredmood and affect and disorientation.HeadNormal - No evidence of alopecia, abnormal cephalic and scars.EyesNormal - No evidence of conjunctivitis, keratitis, hardening of the lens,nonreactive pupil(s), retinal abnormalities and scleral abnormalities.ENMTAbnormal - oral ulceration noted; right tongue, base of tongueNeckNormal - No evidence of distension, tender or enlarged lymph nodes, neckabnormalities, restricted range of motion and enlarged thyroid gland.Hematologic/LymphaticNormal - No evidence of tender or enlarged axillae lymph nodes, tender orenlarged lymph nodes, tender or enlarged groin lymph nodes, tender or enlargedneck lymph nodes and petechiae / purpura / ecchymosis.RespiratoryNormal - No evidence of abnormal breath sounds, chest abnormalities onpalpation and chest abnormalities on percussion.CardiovascularNormal - No evidence of arterial pulse(s) abnormalities, abnormal heart rate,heart arrhythmia and abnormal heart sounds.ChestNormal - No evidence of chest abnormalities and tender or enlarged lymphnodes.AbdomenNormal - No evidence of abdominal abnormalities, abnormal bowel sounds,hepatomegaly and splenomegaly.GenitourinaryNormal - No evidence of bladder dysfunction and kidney dysfunction.Back/SpineNormal - No evidence of reduced flexibility and abnormal spinal curvature.ExtremitiesNormal - No evidence of lower extremities abnormalities, tender or enlargedlymph nodes and upper extremities abnormalities.MusculoskeletalNormal - No evidence of bone abnormalities, joints, joint abnormalities,compromised muscle tone and restricted range of motion.IntegumentaryAbnormal - rasised vesciular lesions of right forearm; now less erythematous,right arm is less swollen.NeurologicNormal - No evidence of impaired cranial nerve(s), uncoordinated gait, motorimpairment, a sensory deficit and impaired reflexes.PsychiatricNormal - No evidence of altered affect, lack of comprehension anddisorientation.Laboratory:Test performed on Jun 23, 2020 09:56TRR73.16 x10E3/uLRBC4.13 x10E6/uL(LOW)HGB9.9 g/dL(LOW)HCT32.7 %(LOW)MCV79.2 fL(LOW)MCH24.0 pg(LOW)MCHC30.3 g/dL(LOW)RDW18.0 %(HIGH)Platelet Assow360 x10E3/uLMPV8.8 flNeutrophils7.11 x10E3/uLLymphocytes1.76 x10E3/uLMonocytes1.09 x10E3/uL(HIGH)Eosinophils0.14 x10E3/uLBasophils0.03 x10E3/uLImmature Grans0.03 x10E3/uLNeutrophil %70.0 %(HIGH)Lymphocyte %17.3 %(LOW)Monocyte %10.7 %(HIGH)Eosinophil %1.4 %Basophils %0.3 %Immature Grans %0.3 %Other test results are not available for this patient.Impression:#1 chronic anemia multifactorial in the setting of nutritional deficiency,anemia of chronic inflammation and anemia of iron deficiency, chronic SObianrekxw71 and iv iron indicated;#2 recurrent left lower extremity DVT,No longer on DVT prophylaxis.#3 Crohn's diseasePatient on Stelara, likely refractory to Stelara. Follow-up with GI forfurther recommendations. We will also recheck to GI to see if there is anyinput regarding the patient's increased total protein, depressed albumin.Patient's IgG level is increased. This is noted in the polyclonal pattern butshe has only IgG is elevated.4. High IgG, total protein elevation. Peripheral blood flow cytometry showsrare CD38 positive cells, CD56 negative, kappa positive, expressing plasmacells detected, this is present in 0.02%. I do not know what to determine fromthis peripheral blood flow cytometry. Although an abnormal finding, patientSPEP, immunofixation was negative, a polyclonal pattern was noted with anisolated IgG. For further investigation, patient will benefit from bone marrowbx to rule out any underlying disease given her age and comorbidities.Plan:Continue IV iron. Follow-up with GI. Obtain bone marrow biopsy. I haveexplained bone marrow biopsy procedure to the patient and her mother, patientand her mom would like to proceed with the bone marrow biopsy but I have askedhim to think it over, and to let me have a discussion with gastroenterologybefore deciding to proceed with the marrowElectronically signed by:Dr. Andrés NobleCC: Name Value Range Interpretation Code Description Data Ambreen rce(s) Supporting Document(s) ID Date Data Source [id number] 06/23/2020 10:00:00 AM EST [facility] Name Value Range Interpretation Code Description Data Ambreen rce(s) Supporting Document(s) WBC 10.16 x10E3/uL 4.0-10.5 [facility] RBC 4.13 x10E6/uL 4.20-5.40 L [facility] Hemoglobin 9.9 g/dL 12.0-16.0 L [facility] Hematocrit 32.7 % 37.0-47.0 L [facility] MCV 79.2 fL 81.0-99.0 L [facility] MCH 24.0 pg 27.0-31.0 L [facility] MCHC 30.3 g/dL 32.7-35.6 [facility] RDW 18.0 % 11.5-14.0 [facility] Platelet count 389 x10E3/uL 150-450 [facility] MPV 8.8 fl 6.9-9.5 N [facility] Neutrophils 70.0 % 34-64 H [facility] Lymphocytes 17.3 % 25-45 L [facility] Monocytes 10.7 % 1.7-10.6 [facility] Eosinophils 1.4 % 0.4-7.0 N [facility] Basophils 0.3 % 0.1-2.0 N [facility] Imm. Gran. 0.3 % 0.1-2.0 N [facility] Abs. Neutro. 7.11 x10E3/uL 1.2-7.6 [facility] Abs. Lymph. 1.76 x10E3/uL 1.0-3.5 [facility] Abs. [place]linger. 1.09 x10E3/uL 0.1-1.0 [facility] Abs. Eosin. 0.14 x10E3/uL 0.1-0.7 [facility] Abs. Baso. 0.03 x10E3/uL 0.0-0.1 [facility] Abs. Imm. Gran. 0.03 x10E3/uL 0.0-0.1 [facility] ANRBC% 0 % 0 N [facility] ID Date Data Source [id number] 06/23/2020 09:33:00 AM [facility] [address] [place] [id number] PATIENT NAME: LISA PEREZ PHYSICIAN: ANDRÉS NOBLE, MDDATE OF SERVICE: 06/23/20DATE OF : [birth year]ACCOUNT #: [id number] MARROW PROCEDUREPatient: LISA PEREZLocation: [facility]: 1975Attending Physician: Dr. Marty Garcia M.D., M.P.H.M.D.Dr. Andrés Garcia M.D.Date: Jun 23, 2020Note Type: Bone Marrow NoteDiagnosis: Primary - I82.402 - Acute embolism and thrombosis of unspecifieddeep veins of left lower extrem ity, Diagnosed Jun 26, 2017 (Active)The patient presents for a scheduled bone marrow aspirate and biopsy in theoffice. The risks of the procedure were detailed and consent was obtained. Thepatient was laid in the right decubitus position. The left posterior superioriliac spine was prepped and draped in the sterile fashion. The patient waspremedicated with 2% lidocaine. The crest of the superior iliac spine as wellas the surface of the bone were anesthetized. A successful attempt was madewith a Jamshidi needle to obtain an aspirate and a bonemarrow core. There wasminimal bleeding.The patient will return to the office in 7 to 10 days to discuss the resutlsof his bone marrow aspirate and biopsy. He was asked to keep the bandage inplace for [address] Andrés NobleCC:No 'Referrals from' exist for this patient. Name Value Range Interpretation Code Description Data Ambreen rce(s) Supporting Document(s) ID Date Data Source [id number] 06/08/2020 06:17:00 PM EDT David SnowЕкатерина [address] [address] FOLLOW UP NOTENAME: LISA PEREZ MPHYSICIAN: DHEERAJ MARTINATE OF SERVICE: 06/08/20DATE OF : [birth year]ACCOUNT #: [id number]: LISA Schwab KIMISDate: Jun 08, 2020DOB: 1975Physician: Dr. Marty Garcia M.D., M.P.H.Harjinder Gimenez M.D.Dr. Andrés Noble M.D.Age: 45Note Title: Hematology/Medical Oncology Follow UpDiagnosis:Primary - I82.402 - Acute embolism and thrombosis of unspecified deep veins ofleft lower extremity, Diagnosed Jun 26, 2017 (Active)History of Problems:Problems / Chief Complaints:Anemia, Left LE DVT, h/o PE, crohn's diseaseGI bleedingarthritisHistory of Present Illness:Patient has a long standing history of Crohn's disease managed with differentimmunosuppressive therapy. Patient was recently noted to have total proteinthat was elevated with a low albumin. Patient was having a Crohn's flare,likely secondary to medication refractoriness. She is here receiving iron dueto iron deficiency anemia from the Crohn's flare. Patient has low energy,increasing fatigue, bloody stools, recurrent ulcers, recurrent infectionsnoted. Patient's blood work was sent for flow cytometry for assessment due torecurrent infections.Past Medical History:AnemiaBlood clotsC.diff colitisCrohn'sDiabetesSchizophreniaThyroid problems (Thyroid Cancer)Past Surgic al History:ThyroidectomyAllergies:Balsalazide DisodiumCurrent Medications:Cyanocobalamin 1,000 mcg (of 1000 mcg/mL) Injection q 28 days (May 27, 2018)Iron Sucrose 200 mg Intravenous once over 15 minutes in NS 100 mL (1) at therate of 440 mL/hr (2018)Vitamin B12 1,000 mcg Intramuscular q 28 days (Jun 10, 2018)Benztropine Mesylate 1 mg Tablet Oral at bedtime (Start Date - unknown)Haloperidol 2 mg Tablet Oral at bedtime (Start Date - unknown)Invega 6 mg Tablet SR 24 HR Oral daily (Start Date - unknown)Levothyroxine Sodium 175 mcg Tablet Oral daily (Start Date - unknown)PredniSONE 20 mg Tablet Oral daily (Start Date - unknown)Stelara 390 mg Injection q 56 days (Start Date - unknown)TraMADol HCl 50 mg Tablet Oral four times a day PRN (Start Date - unknown)ZyPREXA 5 mg Tablet Oral daily (Start Date - unknown)magic mouth wash Liquid Oral daily (Start Date - unknown)Social History:Ms. PEREZ is . Ms. PEREZ has never smoked. She has no history ofdrinking.Family History:father has rheumatoid arthritis.Review of Systems:ConstitutionalAbnormal - fatigue has improvedAllergic/ImmunologicNormal - Denies allergies and adverse reactions.HeadNormal - Denies alopecia.EyesNormal - No significant visual difficulties. No diplopia.ENMTAbnormal - mouth sores.NeckNormal - Denies neck masses, muscle weakness, neck pain, decreased range ofmotion and swelling of the neck.EndocrineNormal - has diabetes, hot flashes, menstrual irregularities and thyroiddisease.Hematologic/LymphaticAbnormal - blood in stools.BreastsNormal - No abnormal masses of breast, no nipple discharge or pain.RespiratoryNormal - No dyspnea on exertion, chest pain, cough or hemoptysis.CardiovascularNormal - No anginal chest pain, palpitations or orthopnea.GastrointestinalAbnormal - crohn's diseaseGenitourinary (F)Normal - De nies dysuria, frequency, genital masses, hematuria, incontinence,nocturia, renal stone disease, problems with sexual function, urgency, urinecolor change, vaginal discharge / bleeding and vaginal spotting.MusculoskeletalAbnormal - recent shingles outbreak of right arm; now some erythematouspatches noted; no crusted lesions;IntegumentaryNormal - new vesicular raised lesions of right forearm; tx with valcyclovir;shingles?NeurologicNormal - No headache, blurred vision, and no areas of focal weakness ornumbness. Normal gait. No sensory problems.PsychiatricAbnormal - paranoid schizophreniaVital Signs:Performed on Jun 08, 2020 15:39Xunmjc67.75 uwLobwtlxxdrj50.5 LVjitk187 /min(HIGH)Lpgkealcuan93 /gkhTU097/64Pulse Oximetry (O2 Sat)97 %Performance Status:0 - Fully active, able to carry on all predisease activities withoutrestrictions. (ECOG)Physical Exam:ConstitutionalNormal - No evidence of impaired alertness, inadequate appearance, prematureor advanced chronologic age, uncooperativeness, developmental delays, alteredmood and affect and disorientation.HeadNormal - No evidence of alopecia, abnormal cephalic and scars.EyesNormal - No evidence of conjunctivitis, keratitis, hardening of the lens,nonreactive pupil(s), retinal abnormalities and scleral abnormalities.ENMTAbnormal - oral ulceration noted; right tongue, base of tongueNeckNormal - No evidence of distension, tender or enlarged lymph nodes, neckabnormalities, restricted range of motion and enlarged thyroid gland.Hematologic/LymphaticNormal - No evidence of tender or enlarged axillae lymph nodes, tender orenlarged lymph nodes, tender or enlarged groin lymph nodes, tender or enlargedneck lymph nodes and petechiae / purpura / ecchymosis.RespiratoryNormal - No evidence of abnormal breath sounds, chest abnormalities onpalpation and chest abnormalities on percussion.CardiovascularNormal - No evidence of arterial pulse(s) abnormalities, abnormal heart rate,heart arrhythmia and abnormal heart sounds.ChestNormal - No evidence of chest abnormalities and tender or enlarged lymphnodes.AbdomenNormal - No evidence of abdominal abnormalities, abnormal bowel sounds,hepatomegaly and splenomegaly.GenitourinaryNormal - No evidence of bladder dysfunction and kidney dysfunction.Back/SpineNormal - No evidence of reduced flexibility and abnormal spinal curvature.ExtremitiesNormal - No evidence of lower extremities abnormalities, tender or enlargedlymph nodes and upper extremities abnormalities.MusculoskeletalNormal - No evidence of bone abnormalities, joints, joint abnormalities,compromised muscle tone and restricted range of motion.IntegumentaryAbnormal - rasised vesciular lesions of right forearm; now less erythematous,right arm is less swollen.NeurologicNormal - No evidence of impaired cranial nerve(s), uncoordinated gait, motorimpairment, a sensory deficit and impaired reflexes.PsychiatricNormal - No evidence of altered affect, lack of comprehension anddisorientation.Laboratory:Most recent lab results are not available for this patient.Other test results are not available for this patient.Impression:#1 chronic anemia multifactorial in the setting of nutritional deficiency,anemia of chronic inflammation and anemia of iron deficiency, chronic UGszgmddtss26 and iv iron indicated;#2 recurrent left lower extremity DVT,No longer on DVT prophylaxis.#3 Crohn's diseasePatient on Stelara, likely refractory to Stelara. Follow-up with GI forfurther recomme ndations. We will also recheck to GI to see if there is anyinput regarding the patient's increased total protein, depressed albumin.Patient's IgG level is increased. This is noted in the polyclonal pattern butshe has only IgG is elevated.4. High IgG, total protein elevation. Peripheral blood flow cytometry showsrare CD38 positive cells, CD56 negative, kappa positive, expressing plasmacells detected, this is present in 0.02%. I do not know what to determine fromthis peripheral blood flow cytometry. Although an abnormal finding, patientSPEP, immunofixation was negative, a polyclonal pattern was noted with anisolated IgG. I do not suspect an underlying malignancy or monoclonalgammopathy but I do suspect possible liver disease. For further investigation,patient will benefit from flow cytometry to rule out any underlying diseasegiven her age and comorbidities.Plan:Continue IV iron. Follow-up with GI. Obtain bone marrow biopsy. I haveexplained bone marrow biopsy procedure to the patient and her mother, patientand her mom would like to proceed with the bone marrow biopsy but I have askedhim to think it over, and to let me have a discussion with gastroenterologybefore deciding to proceed with the marrowElectronically signed by:Dr. Andrés NobleCC: Name Value Range Interpretation Code Description Data Ambreen rce(s) Supporting Document(s) ID Date Data Source [id number] 06/04/2020 11:45:00 AM EDT [facility] Procedure Performed By: [facility] [address] [place] [address] Director: Miguelangel Shearer MD . Mixed christopher: Mixed christopher, probable contamination. Name Value Range Interpretation Code Description Data Ambreen rce(s) Supporting Document(s) ID Date Data Source [id number] 06/04/2020 10:50:00 AM EDT [facility] Procedure Performed By: [facility] [address] [place] [address] Director: Miguelangel Shearer MD . Name Value Range Interpretation Code Description Data Ambreen rce(s) Supporting Document(s) Urine Culture Normal (applies to non-numeric re sults) [facility] ID Date Data Source [id number] 06/03/2020 09:04:00 AM EDT [facility] CX IF TA CX IF TA Name Value Range Interpretation Code Description Data [facility] rce(s) Supporting Document(s) Color,Urine Colorl-Dk Y Normal (applies to non-numeric res ults) [facility] Clarity,Urine Clear Normal (applies to non-numeric re sults) [facility] Specific Orgas,Urine 1.005-1.030 Normal (applies to non- numeric results) [facility] pH,Urine 5.0-8.0 Normal (applies to non-numeric resul ts) [facility] Protein,Urine Negative Normal (applies to non-numeric re sults) [facility] Glucose,Urine Negative Normal (applies to non-numeric re sults) [facility] Ketones,Urine Negative Normal (applies to non-numeric re sults) [facility] Blood,Urine Negative [facility] Bil[facility],Urine Negative Normal (applies to non-numeric results) [facility] Urobilinogen,Urine 0.2-1.0 Normal (applies to non-numer ic results) [facility] Leukocyte Esterase,Urine Negative [facility] Nitrite,Urine Negative Normal (applies to non-numeric re sults) [facility] ID Date Data Source [id number] 06/03/2020 09:04:00 AM EDT [facility] CX IF TA CX IF TA Name Value Range Interpretation Code Description Data [facility] rce(s) Supporting Document(s) RBC,Urine None Seen [facility] WBC,Urine None Seen [facility] Casts,Urine None Seen Normal (applies to non-numeric resu lts) [facility] Squamous Cells,Urine None Seen [facility] Bacteria,Urine None Seen [facility] ital ID Date Data Source [id number] 05/25/2020 09:10:00 PM EDT [facility] Name Value Range Interpretation Code Description Data Ambreen rce(s) Supporting Document(s) FESAT Iron result 18 ug/dL 37-170 [facility] ospital Test Performed By: [facility] [address] [place] [address] Director: Violet Shearer MD FESAT TIBC result 208 ug/dL 265-497 [facility] ospital Test Performed By: [facility] [address] [place] [address] Director: Violet Shearer MD FESAT %Iron Saturation result 12.0-55.0 [facility] Test Performed By: [facility] [address] [place] [address] Director: Violet Shearer MD ID Date Data Source [id number] 05/25/2020 09:10:[address] [facility] Name Value Range Interpretation Code Description Data Ambreen rce(s) Supporting Document(s) Ferritin result 280 ng/mL 6.2-137.0 [facility] pital Test Performed By: [facility] [address] [place] [address] Director: Violet Shearer MD ID Date Data Source [id number] 05/25/2020 09:10:[address] [facility] Name Value Range Interpretation Code Description Data Ambreen rce(s) Supporting Document(s) LDH result 152 U/L 84-246 Normal (applies to non-numeric resul ts) [facility] Test Performed By: [facility] [address] [place] [address] Director: Violet Shearer MD ID Date Data Source [id number] 05/25/2020 08:49:00 PM EDT [facility] Value Range Interpretation Code Description Data Ambreen rce(s) Supporting Document(s) Iron FE Level 18 ug/dL 37-170 Below low normal [facility] Test Performed By: [facility] [address] [place] [address] Director: Violet Shearer MD Total Iron Binding Capacity 208 ug/dL 265-497 Below low normal [facility] Test Performed By: [facility] [address] [place] [address] Director: Violet Shearer MD %Iron Saturation 12.0-55.0 Below low normal [facility] Test Performed By: [facility] [address] [place] [address] Director: Violet Shearer MD ID Date Data Source [id number] 05/25/2020 08:49:00 PM EDT [facility] Value Range Interpretation Code Description Data Ambreen rce(s) Supporting Document(s) Ferritin 280 ng/mL 6.2-137.0 Above high normal [facility] Test Performed By: [facility] [address] [place] [address] Director: Violet Shearer MD ID Date Data Source [id number] 05/25/2020 08:49:00 PM EDT [facility] Value Range Interpretation Code Description Data Ambreen rce(s) Supporting Document(s) LDH 152 U/L 84-246 Normal (applies to non-numeric resul ts) [facility] Test Performed By: [facility] [address] [place] [address] Director: Violet Shearer MD ID Date Data Source [id number] 05/25/2020 04:51:00 PM EDT [facility] Value Range Interpretation Code Description Data Ambreen rce(s) Supporting Document(s) Reticulocyte Count 0.50-1.81 Normal (applies to non-numer ic results) [facility] ID Date Data Source [id number] 05/25/2020 09:06:00 AM EDT [facility] Name Value Range Interpretation Code Description Data Ambreen rce(s) Supporting Document(s) Sodium 138 mmol/L 136-145 Normal (applies to non-numeric resul ts) [facility] Potassium 3.5-5.1 Normal (applies to non-numeric resul ts) [facility] Chloride 101 mmol/L 98-107 Normal (applies to non-numeric resul ts) [facility] Carbon Dioxide CO2 21-32 Normal (applies to non-numer ic results) [facility] Anion Gap 5.0-16.0 Normal (applies to non-numeric resul ts) [facility] BUN 13 mg/dL 7-18 Normal (applies to non-numeric results) [facility] Creatinine,Serum 0.7-1.2 Below low normal [facility] GFR >60 Normal (applies to non-numeric results) [facility] Glucose Level 92 mg/dL 60-99 Normal (applies to non-numeric re sults) [facility] Reference range is only applicable when patient is fasting Note the following drug interference: Sulfasalazine Sulfapyridine Can see falsely depressed Can see falsely elevated result with up to 17% results with up to 11% decrease in measurement increase in measurement Recommend patients be collected for this test prior to administration of either drug. Calcium 8.5-10.1 Below low normal [facility] Bilirubin,Total 0.1-1.9 Normal (applies to non-numeric results) [facility] SGOT(AST) 12 U/L 15-37 Below low normal [facility] spital Note the following drug interference: Sulfasalazine Sulfapyridine Can see falsely depressed Can see falsely elevated result with up to 10% results with up to 10% decrease in measurement increase in measurement Recommend patients be collected for this test prior to administration of either drug. SGPT(ALT) 13 U/L 12-78 Normal (applies to non-numeric resul ts) [facility] Note the following drug interference: Sulfasalazine Sulfapyridine Can see falsely depressed Can see falsely elevated result with up to 29% results with up to 10% decrease in measurement increase in measurement Recommend patients be collected for this test prior to administration of either drug. Alkaline Phosphatase 84 U/L 38-126 Normal (applies to non-num yocasta results) [facility] can increase Alkaline Phosp le vels up to 2 times the normal adult value. Normal values for children and adolescents are 2 to 3 times the normal adult value. Total Protein 6.0-8.2 Normal (applies to non-numeric re sults) [facility] Albumin Level 3.4-5.0 Below low normal [facility] ID Date Data Source [id number] 05/25/2020 08:58:00 AM EDT [facility] Name Value Range Interpretation Code Description Data Ambreen rce(s) Supporting Document(s) Erythrocyte Sedimentation rate 68 mm/hr 0-20 Above high ramon l [facility] ID Date Data Source [id number] 05/25/2020 08:58:[address] [facility] Name Value Range Interpretation Code Description Data Ambreen rce(s) Supporting Document(s) White Blood Count 3.5-10.5 Above high normal [facility] Red Blood Count 3.90-5.00 Normal (applies to non-numeric results) [facility] Hemoglobin 12.0-15.5 Below low normal [facility] ospital Hematocrit 34.9-44.5 Below low normal [facility] ospital Mean Corpuscular Volume 81.2-95.1 Below low normal [facility] Mean Corpuscular Hgb 25.6-32.2 Below low normal [facility] Mean Corpuscular Hgb Conc 32.0-36.0 Below low normal [facility] Red Cell Distribution Width 11.9-15.5 Above high normal [facility] Platelet Count 618 x10 3/uL 150-450 Above high normal [facility] Mean Platelet Volume 9.4-12.4 Below low normal [facility] Neutrophils% (Auto) 31.0-71.0 Normal (applies to non-nume klaudia results) [facility] Lymphocytes% (Auto) 20.0-55.0 Normal (applies to non-nume klaudia results) [facility] Monocytes% (Auto) 4.0-12.0 Normal (applies to non-numeri c results) [facility] Eosinophils% (Auto) 1.0-8.[address] [facility] Basophils% (Auto) 0.0-2.0 Normal (applies to non-numeri c results) [facility] Immature Granulocytes% (Auto) 0.0-2.0 Normal (marvin lies to non-numeric results) [facility] Neutrophils# (Auto) 1.50-6.20 Above high normal [facility] Lymphocytes# (Auto) 1.20-4.00 Normal (applies to non-nume klaudia results) [facility] Monocytes# (Auto) 0.00-0.90 Normal (applies to non-numeri c results) [facility] Eosinophils# (Auto) 0.00-0.50 Normal (applies to non-nume klaudia results) [facility] Basophils# (Auto) 0.00-0.20 Normal (applies to non-numeri c results) [facility] Immature Granulocytes# (Auto) 0.00-7.00 No rmal (applies to non-numeric results) [facility] ID Date Data Source [id number] 05/24/2020 07:47:00 PM EDT [facility]ETI [facility] [address] [address] FOLLOW UP NOTENAME: LISA PEREZ MPHYSICIAN: ANDRÉS NOBLE, MDDATE OF SERVICE: 05/24/20DATE OF : [birth year]ACCOUNT #: [id number]: LISA ALVAREZISDate: May 24, 2020DOB: 1975Physician: Dr. Marty Garcia M.D., M.P.H.Harjinder Gimenez M.D.Dr. Andrés Noble M.D.Age: 45Note Title: Hematology/Medical Oncology Follow UpDiagnosis:Primary - I82.402 - Acute embolism and thrombosis of unspecified deep veins ofleft lower extremity, Diagnosed Jun 26, 2017 (Active)History of Problems:Problems / Chief Complaints:Anemia, Left LE DVT, h/o PE, crohn's diseaseGI bleedingarthritisHistory of Present Illness:Patient has complaints of recent VZV outbreak of right forearm. Patient wastreated with antiviral medication but the the pain in the right forearm has notimproved. Patient also had oral ulcers, was treated with Magic mouthwash andantifungal and is some relief to the oral orifice. There is some confusionabout treatment moving forward, the patient is here to discuss his blood work,and previous CBCs and CMP there is no noted neutropenia, lymphopenia,leukopenia. Patient's immunoglobulins were slightly elevated not depressed.Patient is having a difficult time communicating with GI and would like us tohelp facilitate this.Past Medical History:AnemiaBlood clotsC.diff coli tisCrohn'sDiabetesSchizophreniaThyroid problems (Thyroid Cancer)Past Surgical History:ThyroidectomyAllergies:Balsalazide DisodiumCurrent Medications:Cyanocobalamin 1,000 mcg (of 1000 mcg/mL) Injection q 28 days (May 27, 2018)Vitamin B12 1,000 mcg Intramuscular q 28 days (Jun 10, 2018)Benztropine Mesylate 1 mg Tablet Oral at bedtime (Start Date - unknown)Haloperidol 2 mg Tablet Oral at bedtime (Start Date - unknown)Invega 6 mg Tablet SR 24 HR Oral daily (Start Date - unknown)Levothyroxine Sodium 175 mcg Tablet Oral daily (Start Date - unknown)PredniSONE 20 mg Tablet Oral daily (Start Date - unknown)S telara 390 mg Injection q 56 days (Start Date - unknown)TraMADol HCl 50 mg Tablet Oral four times a day PRN (Start Date - unknown)ZyPREXA 5 mg Tablet Oral daily (Start Date - unknown)magic mouth wash Liquid Oral daily (Start Date - unknown)Social History:Ms. PEREZ is . Ms. PEREZ has never smoked. She has no history ofdrinking.Family History:father has rheumatoid arthritis.Review of Systems:ConstitutionalAbnormal - fatigue has improvedAllergic/ImmunologicNormal - Denies allergies and adverse reactions.HeadNormal - Denies alopecia.EyesNormal - No significant visual difficulties. No diplopia.ENMTAbnormal - mouth sores.NeckNormal - Denies neck masses, muscle weakness, neck pain, decreased range ofmotion and swelling of the neck.EndocrineNormal - has diabetes, hot flashes, menstrual irregularities and thyroiddisease.Hematologic/LymphaticAbnormal - GI bleeding-none recentlyBreastsNormal - No abnormal masses of breast, no nipple discharge or pain.RespiratoryNormal - No dyspnea on exertion, chest pain, cough or hemoptysis.CardiovascularNormal - No anginal chest pain, palpitations or orthopnea.GastrointestinalAbnormal - crohn's diseaseGenitourinary (F)Normal - Denies dysuria, frequency, genital masses, hematuria, incontinence,nocturia, renal stone disease, problems with sexual function, urgency, urinecolor change, vaginal discharge / bleeding and vaginal spotting.MusculoskeletalAbnormal - left leg pain and swelling- improvedIntegumentaryNormal - new vesicular raised lesions of right forearm; tx with valcyclovir;shingles?NeurologicNormal - No headache, blurred vision, and no areas of focal weakness ornumbness. Normal gait. No sensory problems.PsychiatricAbnormal - paranoid schizophreniaVital Signs:Performed on May 24, 2020 10:50Nzbsld47.75 evCckjle324.6 lbs(LOW)BSA (derived)1.68 sq.mBMI29.17Wcjmafwzoak55 ZZuafu87 /tsgRntbnauufyx86 /obuDD753/72Pulse Oximetry (O2 Sat)96 %Fall RiskLow riskPerformance Status:0 - Fully active, able to carry on all predisease activities withoutrestrictions. (ECOG)Physical Exam:ConstitutionalNormal - No evidence of impaired alertness, inadequate appearance, prematureor advanced chronologic age, uncooperativeness, developmental delays, alteredmood and affect and disorientation.HeadNormal - No evidence of alopecia, abnormal cephalic and scars.EyesNormal - No evidence of conjunctivitis, keratitis, hardening of the lens,nonreactive pupil(s), retinal a bnormalities and scleral abnormalities.ENMTAbnormal - oral ulceration noted; right tongue, base of tongueNeckNormal - No evidence of distension, tender or enlarged lymph nodes, neckabnormalities, restricted range of motion and enlarged thyroid gland.Hematologic/LymphaticNormal - No evidence of tender or enlarged axillae lymph nodes, tender orenlarged lymph nodes, tender or enlarged groin lymph nodes, tender or enlargedneck lymph nodes and petechiae / purpura / ecchymosis.RespiratoryNormal - No evidence of abnormal breath sounds, chest abnormalities onpalpation and chest abnormalities on percussion.Car diovascularNormal - No evidence of arterial pulse(s) abnormalities, abnormal heart rate,heart arrhythmia and abnormal heart sounds.ChestNormal - No evidence of chest abnormalities and tender or enlarged lymphnodes.AbdomenNormal - No evidence of abdominal abnormalities, abnormal bowel sounds,hepatomegaly and splenomegaly.GastrointestinalNormal - No evidence of anal and/or perineal abnormalities and rectalabnormalities.GenitourinaryNormal - No evidence of bladder dysfunction and kidney dysfunction.Back/SpineNormal - No evidence of reduced flexibility and abnormal spinal curvature.ExtremitiesNormal - No evidence of lower extremities abnormalities, tender or enlargedlymph nodes and upper extremities abnormalities.MusculoskeletalNormal - No evidence of bone abnormalities, joints, joint abnormalities,compromised muscle tone and restricted range of motion.IntegumentaryAbnormal - rasised vesciular lesions of right forearm, no crusting noted, nodried lesions;NeurologicNormal - No evidence of impaired cranial nerve(s), uncoordinated gait, motorimpairment, a sensory deficit and impaired reflexes.PsychiatricNormal - No evidence of altered affect, lack of comprehension anddisorientation.Laboratory:Most recent lab results are not available for this patient.Other test results are not available for this patient.Impression:#1 chronic anemia multifactorial in the setting of nutritional deficiency,anemia of chronic inflammation, chronic GI bleedingContinue B12 monthly. Patient's iron studies show that there is some increasein her iron, she is unable to tolerate oral iron, at this time I would notrecommend any intravenous iron although she is anemic. The patient's ironstudies are still within normal limits, she is denying bleeding. C/w b12.#2 recurrent left lower extremity DVT,No longer on DVT prophylaxis.#3 Crohn's diseaseContinue Stelara.follow up GI recsvsz likely secondary to tx side effectc/w prednisone for pain.Plan:colonoscopy resultsf/u cbc results (to be done [id number] cytometryfu in 2 weeks.Electronically signed by:Dr. Andrés NobleCC: Name Value Range Interpretation Code Description Data Ambreen rce(s) Supporting Document(s) ID Date Data Source [id number] 05/12/2020 01:49:00 PM EDT [facility] Name Value Range Interpretation Code Description Data Ambreen rce(s) Supporting Document(s) Respiratory specimen severe acute respir atory syndrome coronavirus 2 (SARS-CoV-2) RNA [facility] This lab was ordered by [facility] guero and reported by [facility]. ID Date Data Source [id number] 05/12/2020 02:44:00 PM EDT [facility] COVID-19 Specimen Source NASOPHARYNGEAL Is Patient admitted or to be admitted? NFirst test? YESEmployed in healthcare? NOSymptomatic per CDC? YESHospitalized? NOICU? NOResident in congregated care? ex chcf, [facility]C NO? NO Name Value Range Interpretation Code Description Data Ambreen rce(s) Supporting Document(s) SARS-CoV-2 RNA Negative Normal (applies to non-numeric r esults) [facility] 2019-novel Coronavirus (2019-nCoV) not d etected by the qRT-PCR assay. Consider testing for other respiratory viruses or re-collecting for 2019-nCoV testing. Note: Optimum timing for peak viral levels during infections caused by 2019- nCoV have not been determined. Collection of multiple specimens from the same patient may be necessary to detect the virus. Limitations Positive results are indicative of active infection with SARS-CoV-2 but do not rule out bacterial infection or co-infection with other viruses. The agent detected may not be the definite cause of disease. In addition, detection of viral RNA may not indicate the presence of infectious virus or that SARS-CoV-2 is the causative agent for clinical symptoms. Negative results do not preclude SARS-CoV-2 infection and should not be used as the sole basis for patient management decisions. Negative results must be combined with clinical observations, patient history, and epidemiological information. False negative results may also occur if amplification inhibitors are present in the specimen or if inadequate numbers of organisms are present in the specimen. Optimum specimen types and timing for peak viral levels during infections caused by SARS-CoV-2 have not been fully determined. Collection of multiple specimens (types and time points) from the same patient may be necessary to detect the virus. The test was validated for use with upper respiratory specimens obtained via nasopharyngeal or oropharyngeal swabs in VTM, UTM, M4, M5, M6, saline, and MTM media. The performance of this test has not been established for other specimens. Specimens collected using other FDA recommended Specimen Collection Materials listed in the FDA COVID-[employer] communication (November 06, 2019) are processed with the caveat that they were not all validated for use with this test and the result must be interpreted in this context. Furthermore, a false negative results may occur if a specimen is improperly collected, transported or handled. If the virus mutates in the RT- PCR target region, SARS-CoV-2 may not be detected or may be detected less predictably. Inhibitors or other types of interference may produce a false negative result. An interference study evaluating the effect of common cold medications was not performed. This test is not FDA-cleared but its performance characteristics were established by our CLIA-certified, CAP-accredited, high complexity laboratory in accordance with CLIA regulations, [employer] (CAP) guidelines (Oct 30, 2019), and FDA guidance (Oct 11, 2019). This test is only for use under the Food and Drug Administration's Emergency Use Authorization. THIS IS A STATE REPORTABLE COMMUNICABLE DISEASE. Performing Lab Normal (applies to non-numeric r esults) [facility] COVID-19 Specimen Source: SUPERVISOR [employer] First test ?: Y Employed in healthcare?: N Symptomatic per CDC?: Y Hospitalized?: N ICU?: N Resident in congregated care? ex chcf, ARC: N ?: N Please indicate the Triage TierN Test performed or referred by The [address] [address] ID Date Data Source [id number] 05/12/2020 01:49:[address] [facility] COVID19 Specimen Source NASOPHARYNGEAL Is Patient admitted or to be admitted? NFirst test? YESEmployed in healthcare? NOSymptomatic per CDC? YESHospitalized? NOICU? NOResident in congregated care? ex chcf, [facility] NO? NO Name Value Range Interpretation Code Description Data Ambreen rce(s) Supporting Document(s) SARS-CoV-2 RNA Negative Normal (applies to non-numeric r esults) [facility] 2019-novel Coronavirus (2019-nCoV) not d etected by the qRT-PCR assay. Consider testing for other respiratory viruses or re-collecting for 2019-nCoV testing. Note: Optimum timing for peak viral levels during infections caused by 2019- nCoV have not been determined. Collection of multiple specimens from the same patient may be necessary to detect the virus. Limitations Positive results are indicative of active infection with SARS-CoV-2 but do not rule out bacterial infection or co-infection with other viruses. The agent detected may not be the definite cause of disease. In addition, detection of viral RNA may not indicate the presence of infectious virus or that SARS-CoV-2 is the causative agent for clinical symptoms. Negative results do not preclude SARS-CoV-2 infection and should not be used as the sole basis for patient management decisions. Negative results must be combined with clinical observations, patient history, and epidemiological information. False negative results may also occur if amplification inhibitors are present in the specimen or if inadequate numbers of organisms are present in the specimen. Optimum specimen types and timing for peak viral levels during infections caused by SARS-CoV-2 have not been fully determined. Collection of multiple specimens (types and time points) from the same patient may be necessary to detect the virus. The test was validated for use with upper respiratory specimens obtained via nasopharyngeal or oropharyngeal swabs in VTM, UTM, M4, M5, M6, saline, and MTM media. The performance of this test has not been established for other specimens. Specimens collected using other FDA recommended Specimen Collection Materials listed in the FDA COVID-19 [employer] communication (November 06, 2019) are processed with the caveat that they were not all validated for use with this test and the result must be interpreted in this context. Furthermore, a false negative results may occur if a specimen is improperly collected, transported or handled. If the virus mutates in the RT- PCR target region, SARS-CoV-2 may not be detected or may be detected less predictably. Inhibitors or other types of interference may produce a false negative result. An interference study evaluating the effect of common cold medications was not performed. This test is not FDA-cleared but its performance characteristics were established by our CLIA-certified, CAP-accredited, high complexity laboratory in accordance with CLIA regulations, [employer] (CAP) guidelines (Oct 30, 2019), and FDA guidance (Oct 11, 2019). This test is only for use under the Food and Drug Administration's Emergency Use Authorization. THIS IS A STATE REPORTABLE COMMUNICABLE DISEASE. Performing Lab Normal (applies to non-numeric r esults) [facility] COVID-19 Specimen Source: SUPERVISOR CEREAL First test ?: Y Employed in healthcare?: N Symptomatic per CDC?: Y Hospitalized?: N ICU?: N Resident in congregated care? ex [facility], [facility]: N ?: N Please indicate the Triage TierN Test performed or referred by The [address] [address] ID Date Data Source [id number] 03/26/2020 05:26:00 PM EDT [facility] Imaging Services Department Imaging Report [address] [place] [id number] %(RAD)RES..mtdd.print.filter("line") Name: LISA PEREZ : 1975 Age/Sex: 45F Ordering Provider: Sincere Woodruff, DO Med Rec #: [id number] Reg Status: DEP REF Room #: Date of Service: 03/26/20 Report Number: [id number] cc:Sincere Zambrano Reason, DO Send Report To: [id number] XRP/XR Ankle 2 View Bilat Reason for exam: OA Comparison is made to feet radiographs of the feet dated 06/18/2018. FINDINGS: Right ankle: There is no evidence of acute fracture or destructive bone lesion. The ankle mortise and visualized joint spaces of the foot are not remarkable. There is a tiny enthesophyte at the Achilles tendon insertion seen previously. Left ankle: There is no evidence of acute fracture or destructive bone lesion. The ankle mortise and visualized joint spaces of the foot are not remarkable. The soft tissues are normal. IMPRESSION: No acute disease. No significant change since 06/2018. Time portable performed: Fluoroscopy time in seconds: Number of Exposures: Contrast Agent in ml: Method of Administration: REPORT SIGNATURE ON FILE Reported By: David Noel MD <Electronically signed by David Noel MD> 03/29/20 1103 Dictation Date/Time: 03/26/20 1606 Transcribed Date/Time: 03/26/20 1726 Manager Transit: MARIANNA Name Value Range Interpretation Code Description Data Ambreen rce(s) Supporting Document(s) ID Date Data Source [id number] 03/30/2020 04:59:00 PM EDT [facility] Name Value Range Interpretation Code Description Data Ambreen rce(s) Supporting Document(s) MILLER Interpretation Result Negative Very a bnormal (applies to non-numeric units [facility] For titers greater than or equal to 1:16 0 (except the centromere and nucleolar patterns) it is recommended that specific follow-up autoantibody testing (such as for dsDNA and Extractable Nuclear Antigens) be performed on all diffuse and/or speckled patterns NOTE: For add-on testing dsDNA is stable for 7 days refrigerated while Extractable Nuclear Antigens are only stable for 48 hours refrigerated. MILLER Titer Pattern 1 Reflex Normal (applies to n on-numeric results) [facility] Results were obtained with the INOVA NOV A Lite HEp-2 MILLER Kit by indirect immunofluorescence. Test performed [place] [address] ID Date Data Source [id number] 03/30/2020 04:59:00 PM EDT [facility] Name Value Range Interpretation Code Description Data Ambreen rce(s) Supporting Document(s) Lyme Disease Serology result Negative Normal (appl ies to non-numeric results) [facility] No evidence of antibodies to B. burgdorf heike detected. False negative results may occur in recently infected patients (<=2 weeks) due to low or undetectable antibody levels to B. burgdorferi. If recent exposure is suspected, a second sample should be collected and tested in 2-4 weeks. Test Performed by: [place] [address] [employer] Cart Assembler: Rubens Zamarripa M.D. Ph.D.; CLIA# [id number] ID Date Data Source [id number] 03/30/2020 04:43:[address] [facility] Name Value Range Interpretation Code Description Data Ambreen rce(s) Supporting Document(s) Lyme Disease Serology result Negative Normal (appl ies to non-numeric results) [facility] No evidence of antibodies to B. burgdorf heike detected. False negative results may occur in recently infected patients (<=2 weeks) due to low or undetectable antibody levels to B. burgdorferi. If recent exposure is suspected, a second sample should be collected and tested in 2-4 weeks. Test Performed by: [facility] [place] [address] Golf Cart Assembler: Rubens Zamarripa M.D. Ph.D.; CLIA# [id number] ID Date Data Source [id number] 03/30/2020 04:43:[address] [facility] Name Value Range Interpretation Code Description Data Ambreen rce(s) Supporting Document(s) MILLER Interpretation Result Negative Very a bnormal (applies to non-numeric units [facility] For titers greater than or equal to 1:16 0 (except the centromere and nucleolar patterns) it is recommended that specific follow-up autoantibody testing (such as for dsDNA and Extractable Nuclear Antigens) be performed on all diffuse and/or speckled patterns NOTE: For add-on testing dsDNA is stable for 7 days refrigerated while Extractable Nuclear Antigens are only stable for 48 hours refrigerated. MILLER Titer Pattern 1 Reflex Normal (applies to n on-numeric results) [facility] Results were obtained with the INOVA NOV A Lite HEp-2 MILLER Kit by indirect immunofluorescence. Test performed [place] [address] ID Date Data Source [id number] 03/26/2020 06:14:00 PM EDT [facility] Name Value Range Interpretation Code Description Data Ambreen rce(s) Supporting Document(s) RF Rheumatoid Factor result 0.0-15.0 Normal (appli es to non-numeric results) [facility] Test Performed By: [facility] [address] [place] [address] Director: Violet Shearer MD ID Date Data Source [id number] 03/26/2020 06:13:00 PM EDT [facility] Name Value Range Interpretation Code Description Data Ambreen rce(s) Supporting Document(s) CRP,Wide Range result <3.00 [facility] Test Performed By: [facility] [address] [place] [address] Director: Violet Shearer MD ID Date Data Source [id number] 03/26/2020 05:38:00 PM EDT [facility] Value Range Interpretation Code Description Data Ambreen rce(s) Supporting Document(s) Rheumatoid Factor 0.0-15.0 Normal (applies to non-numeri c results) [facility] Test Performed By: [facility] [address] [place] [address] Director: Violet Shearer MD ID Date Data Source [id number] 03/26/2020 05:25:00 PM EDT [facility] Value Range Interpretation Code Description Data Ambreen rce(s) Supporting Document(s) C-Reactive Protein,Wide Range <3.00 Above high normal [facility] Test Performed By: [facility] [address] [place] [address] Director: Violet Shearer MD ID Date Data Source [id number] 03/26/2020 03:08:00 PM EDT [facility] Name Value Range Interpretation Code Description Data Ambreen rce(s) Supporting Document(s) Sodium 138 mmol/L 136-145 Normal (applies to non-numeric resul ts) [facility] Potassium 3.5-5.1 Normal (applies to non-numeric resul ts) [facility] Chloride 100 mmol/L 98-107 Normal (applies to non-numeric resul ts) [facility] Carbon Dioxide CO2 21-32 Normal (applies to non-numer ic results) [facility] Anion Gap 5.0-16.0 Normal (applies to non-numeric resul ts) [facility] BUN 14 mg/dL 7-18 Normal (applies to non-numeric results) [facility] Creatinine,Serum 0.7-1.2 Normal (applies to non-numeric results) [facility] GFR >60 Normal (applies to non-numeric results) [facility] Glucose Level 112 mg/dL 60-99 Above high normal [facility] Reference range is only applicable when patient is fasting Note the following drug interference: Sulfasalazine Sulfapyridine Can see falsely depressed Can see falsely elevated result with up to 17% results with up to 11% decrease in measurement increase in measurement Recommend patients be collected for this test prior to administration of either drug. Calcium 8.5-10.1 Normal (applies to non-numeric resul ts) [facility] ID Date Data Source [id number] 03/26/2020 03:08:00 PM T [facility] Name Value Range Interpretation Code Description Data Ambreen rce(s) Supporting Document(s) Uric Acid 2.6-6.0 Normal (applies to non-numeric resul ts) [facility] ID Date Data Source [id number] 03/26/2020 03:08:00 PM EDT [facility] Name Value Range Interpretation Code Description Data Ambreen rce(s) Supporting Document(s) Triglycerides 161 mg/dL <150 Above high normal [facility] Cholesterol 165 mg/dL 100-200 Normal (applies to non-numeric resu lts) [facility] LDL Cholesterol Calculated 95 0-130 Normal (applies to n on-numeric results) [facility] HDL Cholesterol 38 mg/dL 40-60 Below low normal [facility] Cholesterol/HDL Ratio 3.6-6.7 Normal (applies to non-nu meric results) [facility] ID Date Data Source [id number] 03/26/2020 03:01:00 PM EDT [facility] Name Value Range Interpretation Code Description Data Ambreen rce(s) Supporting Document(s) Hemoglobin A1c 4.4-6.2 Above high normal [facility] Estimated Avg Glucose 163 mg/dL 126-240 Normal (applies to non-numeric results) [facility] ID Date Data Source [id number] 03/26/2020 02:32:00 PM EDT [facility] Name Value Range Interpretation Code Description Data Ambreen rce(s) Supporting Document(s) Erythrocyte Sedimentation rate 63 mm/hr 0-20 Above high ramon l [facility] ID Date Data Source [id number] 03/11/2020 04:04:00 AM EDT [facility] MRI ABDOMEN WITHOUT AND WITH CONTRASTAn Enterography protocol study was performed with scanning through theabdomen and pelvis. There is some moderate wall thickening at thesigmoid colon. No adjacent inflammation is identified. No significantsmall bowel wall thickening is identified. At the perianal region in thefat around it, there is a curvilinear tract-like area seen. It is seenin the perianal fat and gluteal fat. It is seen on the right side andthen extending posteriorly and then to the left and then down to the leftgluteal region down to the level of the lamar cleft. It is somewhatdifficult to measure this, but it is roughly about 9 cm in length with adiameter of about 0.9 cm. This is suspicious for fistula tract. Theurinary bladder appears unremarkable. There is a round area seen alongthe uterine body on the right side that is isointense relative to therest of the myometrium that may be a leiomyoma measuring about 3.1 cm x3.2 cm.The liver is enlarged measuring about 18.5 cm. The spleen is enlargedmeasuring about 13.8 cm. No focal hepatic or splenic lesion isidentified. Calculi are seen in the gallbladder. The pancreas, adrenals, kidneys appear unremarkable.IMPRESSION: MODERATE WALL THICKENING AT THE SIGMOID COLON SUSPICIOUS FORCOLITIS. THERE IS A TRACT-LIKE AREA NOTED AT THE PERIANAL REGION AND THEPERIANAL/GLUTEAL FAT THAT IS LIKELY A FISTULA. CORRELATE CLINICALLY.PROBABLE UTERINE LEIOMYOMA MEASURING ABOUT 3.2 CM. HEPATOMEGALY AT 18.5CM. SPLENOMEGALY AT 13.8 CM.Dictated on 03/11/20 0404 by Tex Enriquez M.D.Transcribed on 03/11/20 1616 by Carolyn Rogersign by Tex Enriquez M.D. on 03/12/20 1047Sign by: Tex Enriquez M.D. Name Value Range Interpretation Code Description Data Ambreen rce(s) Supporting Document(s) ID Date Data Source [id number] 02/29/2020 04:31:00 PM EDT [facility] [address] [address] FOLLOW UP NOTENAME: LISA PEREZ MPHYSICIAN: DHEERAJ MARTINATE OF SERVICE: 02/16/20DATE OF : [birth year]ACCOUNT #: [id number]: LISA ALVAREZISDate: Feb 16, 2020DOB: 1975Physician: Dr. Marty Garcia M.D., M.P.H.M.D.Dr. Andrés Garcia M.D.Age: 44Note Title: Hematology/Medical Oncology Follow UpDiagnosis:Primary - I82.402 - Acute embolism and thrombosis of unspecified deep veins ofleft lower extremity, Diagnosed Jun 26, 2017 (Active)History of Problems:Problems / Chief Complaints:Anemia, Left LE DVT, h/o PE, crohn's diseaseGI bleedingarthritisHistory of Present Illness:The patient is a 44-year-old female with a history of Crohn's disease, hermother is present for today's encounter. The patient denies any overt bleedingwith Crohn's. She is on Stelara, patient has an underlying psych disorder andis on Zyprexa and benztropine. Patient also takes Haldol at night. Thepatient. The patient still having her menses, they are not heavy. The patientreceives vitamin B injection every month. The patient also has struggled withfood, sugar control. The patient's chemistry and CBC is reviewed from January. Her sodium, potassium, chloride, CO2 is within normal limits. Thepatient's total protein was 7.7. Albumin is 3. The patient CBC reflects awhite blood cell count of 10.3, hemoglobin 11.6, hematocrit 37.6, MCV 84.7,platelet count of 404. The patient has a colonoscopy scheduled with her newgastroenterologist, Dr. Baeza.The patient's TSH is 0.019, T4 is 1.42. Her thyroid globulin antibody is lessthan 1.8. Thyroglobulin tumor marker is 0.3.She is iron has dropped since last visit, iron is 28, TIBC is 206, percentsaturation is 13.6. Her ferritin is 266. B12 is 823. Folate is greater than20. LDH is 120.Review systems is documented above.Past Medical History:AnemiaBlood clotsC.diff colitisCrohn'sDiabetesSchizophreniaThyroid problems (Thyroid Cancer)Past Surgical History:ThyroidectomyAllergies:Balsalazide DisodiumCurrent Medications:Cyanocobalamin 1,000 mcg (of 1000 mcg/mL) Injection q 28 days (May 27, 2018)Vitamin B12 1,000 mcg Intramuscular q 28 days (Jun 10, 2018)Benztropine Mesylate 1 mg Tablet Oral at bedtime (Start Date - unknown)Haloperidol 2 mg Tablet Oral at bedtime (Start Date - unknown)Levothyroxine Sodium 175 mcg Tablet Oral daily (Start Date - unknown)Stelara 390 mg Injection q 56 days (Start Date - unknown)TraMADol HCl 50 mg Tablet Oral four times a day PRN (Start Date - unknown)ZyPREXA 5 mg Tablet Oral daily (Start Date - unknown)Social History:Ms. PEREZ is . Ms. PEREZ has never smoked. She has no history ofdrinking.Family History:father has rheumatoid arthritis.Review of Systems:ConstitutionalAbnormal - fatigue has improvedEyesNormal - No significant visual difficulties. No diplopia.ENMTNormal - No problems with hearing, no sore throat, no sinus drainage.Hematologic/LymphaticAbnormal - GI bleeding-none recentlyBreastsNormal - No abnormal masses of breast, no nipple discharge or pain.RespiratoryNormal - No dyspnea on exertion, chest pain, cough or hemoptysis.CardiovascularNormal - No anginal chest pain, palpitations or orthopnea.GastrointestinalAbnormal - crohn's diseaseMusculoskeletalAbnormal - left leg pain and swelling- improvedNeurologicNormal - No headache, blurred vision, and no areas of focal weakness ornumbness. Normal gait. No sensory problems.PsychiatricAbnormal - paranoid schizophreniaVital Signs:Performed on Feb 16, 2020 12:18Rjrimh42.75 fhOhtguh483.8 lbs(LOW)BSA (derived)1.70 sq.mBMI30.90Daddugsssly22.3 ADmrso603 /min(HIGH)Wvvxjsnpkov89 /nxrNA106/80Pulse Oximetry (O2 Sat)96 %Pain Fzcbejuogx2Jvhylop0Wscptpvtnwc Status:1 - No physically strenuous activity, but ambulatory and able to carry outlight or sedentary work (e.g. office work, light house work). (ECOG)Physical Exam:ConstitutionalNormal - Alert, cooperative, oriented. Mood and affect appropriate. Appearsclose to chronological age. Well nourished. Well developed.HeadNormal - Normocephalic; no scars.EyesNormal - Conjunctivae and sclerae are clear and without icterus. Pupils arereactive and equal.ENMTAbnormal - Sinuses are nontender. No oral exudates, ulcers, masses, thrush ormucositis. Oropharynx clear. Tongue normal. dry mucous membraneNeckNormal - Supple without masses or thyromegaly. No jugular venous diste nsion.Hematologic/LymphaticNormal - No petechiae or purpura. No tender or palpable lymph nodes in thecervical, supraclavicular, axillary or inguinal area.RespiratoryNormal - Lungs are clear to auscultation without rhonchi or wheezing.CardiovascularNormal - Regular rate and rhythm of heart without murmurs, gallops or rubs.ChestNormal - Chest is symmetric without chest wall deformities.AbdomenAbnormal - soft, no distention, no guarding, mildly tenderBack/SpineNormal - Non-tender to palpation.ExtremitiesAbnormal - varicose veins in left LEIntegumentaryNormal - No rashes, scars, or lesions suggestive of malignancy.NeurologicNormal - No sensory or motor deficits, normal cerebellar function, normalgait, cranial nerves intact.PsychiatricNormal - Alert and oriented times three. Coherent speech. Verbalizesunderstanding of our discussions today.Laboratory:Most recent lab results are not available for this patient.Other test results are not available for this patient.Impression:#1 chronic anemia multifactorial in the setting of nutritional deficiency,anemia of chronic inflammation, chronic GI bleedingContinue B12 monthly. Patient's iron studies show that there is some increasein her iron, she is unable to tolerate oral iron, at this time I would notrecommend any intravenous iron although she is anemic. The patient's ironstudies are still within normal limits, she is denying bleeding. We will wait3 months and recheck the iron. Patient does have any overt bleeding episodes,.#2 recurrent left lower extremity DVT,No longer on DVT prophylaxis.#3 Crohn's diseaseContinue Stelara. Colonoscopy scheduled with Dr. Baeza.#Elevated T.P.Plan:follow up iron studies; b12 levels in 3 monthsobtain colonoscopy reportimmunofixation;spep;immunoglobulins assessment due to elevated proteinf/u in 3 months.Electronically signed by:Dr. Andrés NobleCC: Name Value Range Interpretation Code Description Data Ambreen rce(s) Supporting Document(s) ID Date Data Source MRI Abdomen with Contrast - [id number] 02/27/2020 12:08:45 PM EDT eCW1 ([facility]) Name Value Range Interpretation Code Description Data Ambreen rce(s) Supporting Document(s) MRI Abdomen with Contrast - [id number] eCW1 ([facility]) ID Date Data Source MRI Pelvis w/ Contrast - [id number] 02/27/2020 12:08:26 PM EDT eC W1 ([facility]) Name Value Range Interpretation Code Description Data Ambreen rce(s) Supporting Document(s) MRI Pelvis w/ Contrast - [id number] eCW1 ([facility]) ID Date Data Source [id number] 03/05/2020 05:13:00 PM EDT [facility] Cc: Reason (AB) A. TERMINAL ILE UM, BIOPSY: - ILEAL MUCOSA WITH ADEQUATE VILLOUS ARCHITECTURE AND NO INFLAMMATION - NO SPRUE-LIKE FEATURES PRESENT: B, C & D. BIOPSIES OF ASCENDING COLON, TRANSVERSE COLON & DESCENDING COLON: -COLONIC MUCOSA WITH NO LYMPHOCYTIC/COLLAGENOUS COLITIS, ACUTE INFLAMMATORY ACTIVITY,GRANULOMAS NOR DYSPLASIA E. COLONIC BIOPSY AT 50 CM: - PORTION OF A SERRATED ADENOMA, INFLAMED F. COLONIC BIOPSY AT 45 CM: - SERRATED ADENOMA, INFLAMED WITH STROMAL HEMORRHAGE G. BIOPSY OF RECTOSIGMOID COLON: - AREAS OF ACUTE CRYPTITIS AND SMALL CRYPT ABSCESSES - THERE ARE NO GRANULOMAS NOR AREAS OF DYSPLASIA - IMMUNOHISTOCHEMISTRY FOR CMV & HSV WILL FOLLOW IN AN ADDENDUM H. BIOPSY ADJACENT TO ILEOCECAL VALVE: - INFLAMED AND ULCERATED TUBULAR ADENOMA CODE/S: 37075 X8 . A. Received in formalin, labeled with proper patient identification and "biopsy terminalileum" is the following biopsy specimen:Number of pieces/color/size: 1, jones, 0.3cmAll processed in one cassette. B. Received in formalin, labeled with proper patient identification and "biopsy ascendingcolon" is the following biopsy specimen: Number of pieces/color/size: 2, jones, 0.2cm x2All processed in one cassette. C. Received in formalin, labeled with proper patient identification and "biopsytransverse" is the following biopsy specimen:Number of pieces/color/size: 3, jones, 0.1- 0.3cmAll processed in one cassette. D. Received in formalin, labeled with proper patient identification and "biopsydescending" is the following biopsy specimen:Number of pieces/color/size: 2, jones, 0.7qhl3Xna processed in one cassette. E. Received in formalin, labeled with proper patient identification and "biopsy 50cm"is the following biopsy specimen:Number of pieces/color/size: 1, red-brown, 0.3cmAll processed in one cassette. F. Received in formalin, labeled with proper patient identification and "biopsypseudopolyp at 45cm" is the following biopsy specimen: Number of pieces/color/size: 1, red-brown, 0.4cm- long, thinAll processed in one cassette. G. Received in formalin, labeled with proper patient identification and "biopsyrectosigmoid- rule out CMV/HSV" is the following biopsy specimen: Number of pieces/color/size: 1, brown, 0.3cmAll processed in one cassette. H. Received in formalin, labeled with proper patient identification and "pseudopolypadjacent to ileocecal valve" is the following biopsy specimen: Number of pieces/color/size: 1, jones, 0.2cm All processed in one cassette. Dict: SWTrans: AB Jud. BIOPSY OF RECTOSIGMOID COLON: Immunohistochemistry performed at [facility] is interpreted by nm asfollows: - CMV - negative - HSV 1 & 2 - negative - Positive and negative controls are adequate. CODE/S: [id number] . ADDENDUM SIGNED: Yvette Sanford DO 03/05/20 Perirectal fistula. Pseudopolyps. Inflamed rectosigmoid. Slides reviewed. Diagnosis supported by microscopic examination. REPORT SIGNED: Yvette Sanford DO 02/25/20 Name Value Range Interpretation Code Description Data Ambreen rce(s) Supporting Document(s) ID Date Data Source [id number] 02/24/2020 07:53:00 AM EDT [facility] Name Value Range Interpretation Code Description Data Ambreen rce(s) Supporting Document(s) FGLU 159 mg/dL 70-110 [facility] ID Date Data Source [id number] 02/24/2020 07:47:00 AM EDT [facility] PT COULDNT PRODUCE URINE SPEC/CHANGED TO SERUM Name Value Range Interpretation Code Description Data Ambreen rce(s) Supporting Document(s) HCG QUAL [facility]UM [facility] Date Data Source [id number] 02/20/2020 02:00:00 PM EDT [facility] Name Value Range Interpretation Code Description Data Ambreen rce(s) Supporting Document(s) SARS coronavirus 2 RNA [facility] This lab was ordered by [facility] and reported by [facility]. ID Date Data Source [id number] 02/21/2020 07:06:00 PM EDT [facility] Per[facility] at[facility] [place] [id number] Director: Allie Mir MD, Phone: [phone] Name Value Range Interpretation Code Description Data Ambreen rce(s) Supporting Document(s) COVID-19 Not Detected Not Detected [facility] [facility] was performed using the aliza(R) SARS-CoV-2 test.This test was developed and its performance characteristicsdetermined by [facility]. This test has not beenFDA cleared or approved. This test has been authorized byFDA under an Emergency Use Authorization (EUA). This testis only authorized for the duration of time the declarationthat circumstances exist justifying the authorization ofthe emergency use of in vitro diagnostic tests fordetection of SARS-CoV-2 virus and/or diagnosis of COVID-19infection under section 564(b)(1) of the Act, 21 U.S.C.360bbb-3(b)(1), unless the authorization is terminated orrevoked sooner. When diagnostic testing is negative, thepossibility of a false negative result should be consideredin the context of a patient's recent exposures and thepresence of clinical signs and symptoms consistent withCOVID- 19. An individual without symptoms of COVID-19 andwho is not shedding SARS-CoV-2 virus would expect to have anegative (not detected) result in this assay. ID Date Data Source [id number] 02/26/2020 06:39:00 PM EDT [facility] Name Value Range Interpretation Code Description Data [facility] rce(s) Supporting Document(s) IGAMS IgG result 2048 mg/dL 610-1,616 Very abnormal ( applies to non-numeric units [facility] IGAMS IgA result 310 mg/dL 85-499 Normal (applies to non-numeric results) [facility] IGAMS IgM result 171 mg/dL 35-242 Normal (applies to non-numeric results) [facility] Test performed [place] [address] ID Date Data Source [id number] 02/26/2020 06:39:00 PM EDT [facility] Name Value Range Interpretation Code Description Data [facility] rce(s) Supporting Document(s) Total Protein 6.3 - 7.9 Normal (applies to non-numeric re sults) [facility] Albumin 3.4-4.7 Very abnormal (applies to non-numeri c units [facility] Alpha-1 Globulin 0.1-0.3 Normal (applies to non-numeric results) [facility] Alpha-2 Globulin 0.6-1.0 Normal (applies to non-numeric results) [facility] Beta-Globulin 0.7-1.2 Normal (applies to non-numeric re sults) [facility] Gamma-Globulin 0.6-1.6 Very abnormal (applies to non-nu meric units [facility] A/G Ratio Normal (applies to non-numeric results) [facility] Impression Normal (applies to non-numeric results) [facility] Polyclonal hypergammaglobulinemia See I mmunofixation. Immunofixation Normal (applies to non-numeric r esults) [facility] RESULT: No monoclonal protein detected. Test Performed by: [place] [address] [employer] Cart As[employer]er: Rubens Zamarripa M.D. Ph.D.; CLIA# [id number] ID Date Data Source [id number] 02/26/2020 06:39:00 PM EDT [facility] Name Value Range Interpretation Code Description Data Ambreen rce(s) Supporting Document(s) [place] Free Light Chain Very abnormal (applies t o non-numeric units [facility] REFERENCE VALUE------ 0.3300-1.94 Lambda Free Light Chain Very abnormal (applies to non-numeric units [facility] REFERENCE VALUE------ 0.5700-2.63 [place]/Lambda FLC Ratio Normal (applies to non-n umeric results) [facility] REFERENCE VALUE------ 0.2600-1.65 Test Performed by: [place] [address] [employer]er: Rubens Zamarripa M.D. Ph.D.; CLIA# [id number] ID Date Data Source [id number] 02/26/2020 04:49:[address] [facility] Name Value Range Interpretation Code Description Data Ambreen rce(s) Supporting Document(s) IGAMS IgG result 2048 mg/dL 610-1,616 [place] [facility] IGAMS IgA result 310 mg/dL 85-499 Normal (applies to non-numeric results) [facility] IGAMS IgM result 171 mg/dL 35-242 Normal (applies to non-numeric results) [facility] Test performed or referred by The [address] [place] [address] ID Date Data Source [id number] 02/26/2020 04:49:[address] [facility] Name Value Range Interpretation Code Description Data Ambreen rce(s) Supporting Document(s) Total Protein 6.3 - 7.9 Normal (applies to non-numeric re sults) [facility] Albumin 3.4-4.7 [facility] Alpha-1 Globulin 0.1-0.3 Normal (applies to non-numeric results) [facility] Alpha-2 Globulin 0.6-1.0 Normal (applies to non-numeric results) [facility] Beta-Globulin 0.7-1.2 Normal (applies to non-numeric re sults) [facility] Gamma-Globulin 0.6-1.6 [facility] A/G Ratio Normal (applies to non-numeric results) [facility] Impression Normal (applies to non-numeric resul ts) [facility] Polyclonal hypergammaglobulinemia See I mmunofixation. Immunofixation Normal (applies to non-numeric r esults) [facility] RESULT: No monoclonal protein detected. Test Performed by: [facility] [address] [place] [address] [employer] As[employer]er: Rubens Zamarripa M.D. Ph.D.; CLIA# [id number] ID Date Data Source [id number] 02/26/2020 04:50:[address] [facility] Name Value Range Interpretation Code Description Data Ambreen rce(s) Supporting Document(s) [place] Free Light Chain [facility] REFERENCE VALUE------ 0.3300-1.94 Lambda Free Light Chain [facility] REFERENCE VALUE------ 0.5700-2.63 [place]/Lambda FLC Ratio Normal (applies to non-n umeric results) [facility] REFERENCE VALUE------ 0.2600-1.65 Test Performed by: [facility] [address] [place] [address] [employer] Assembler: Rubens Zamarripa M.D. Ph.D.; CLIA# [id number] ID Date Data Source [id number] 02/20/2020 01:34:00 PM EDT [facility] Name Value Range Interpretation Code Description Data Ambreen rce(s) Supporting Document(s) Sodium 139 mmol/L 136-145 Normal (applies to non-numeric resul ts) [facility] Potassium 3.5-5.1 Normal (applies to non-numeric resul ts) [facility] Chloride 101 mmol/L 98-107 Normal (applies to non-numeric resul ts) [facility] Carbon Dioxide CO2 21-32 Normal (applies to non-numer ic results) [facility] Anion Gap 5.0-16.0 Normal (applies to non-numeric resul ts) [facility] BUN 10 mg/dL 7-18 Normal (applies to non-numeric results) [facility] Creatinine,Serum 0.7-1.2 Normal (applies to non-numeric results) [facility] GFR >60 Normal (applies to non-numeric results) [facility] Glucose Level 110 mg/dL 60-99 Above high normal [facility] Reference range is only applicable when patient is fasting Note the following drug interference: Sulfasalazine Sulfapyridine Can see falsely depressed Can see falsely elevated result with up to 17% results with up to 11% decrease in measurement increase in measurement Recommend patients be collected for this test prior to administration of either drug. Calcium 8.5-10.1 Normal (applies to non-numeric resul ts) [facility] Bilirubin,Total 0.1-1.9 Normal (applies to non-numeric results) [facility] SGOT(AST) 12 U/L 15-37 Below low normal [facility] Note the following drug interference: Sulfasalazine Sulfapyridine Can see falsely depressed Can see falsely elevated result with up to 10% results with up to 10% decrease in measurement increase in measurement Recommend patients be collected for this test prior to administration of either drug. SGPT(ALT) 20 U/L 12-78 Normal (applies to non-numeric resul ts) [facility] Note the following drug interference: Sulfasalazine Sulfapyridine Can see falsely depressed Can see falsely elevated result with up to 29% results with up to 10% decrease in measurement increase in measurement Recommend patients be collected for this test prior to administration of either drug. Alkaline Phosphatase 91 U/L 38-126 Normal (applies to non-num yocasta results) [facility] can increase Alkaline Phosp le vels up to 2 times the normal adult value. Normal values for children and adolescents are 2 to 3 times the normal adult value. Total Protein 6.0-8.2 Normal (applies to non-numeric re sults) [facility] Albumin Level 3.4-5.0 Below low normal [facility] ID Date Data Source [id number] 02/20/2020 01:09:00 PM EDT [facility] Name Value Range Interpretation Code Description Data Ambreen rce(s) Supporting Document(s) Reticulocyte Count 0.50-1.81 Normal (applies to non-numer ic results) [facility] ID Date Data Source [id number] 02/07/2020 07:08:00 AM EDT [facility] Imaging Services Department Imaging Report [address], [place] [address] %(RAD)RES..mtdd.print.filter("line") Name: LISA PEREZ : 1975 Age/Sex: 44F Ordering Provider: Raymond Wright MD Med Rec #: [id number] Reg Status: DEP REF Room #: Date of Service: 02/06/20 Report Number: [id number] cc:Sincere Woodruff, DO; Raymodn Wright MD Send Report To: [id number] US/US Soft Tissue Head/Neck Reason for exam: THYROID CANCER, HYPOTHYROIDISM Comparison: 01-20-2019 FINDINGS: Status post thyroidectomy. There is a hyperechoic region identified on the left measuring 5.8 x 6.4 x 7.1 mm. That is unchanged as compared to the previous study of 01-20-2019. No other significant findings identified. IMPRESSION: Stable hyperechoic region in the region of the left thyroid bed. No other significant findings. REPORT SIGNATURE ON FILE Reported By: Yao Martínez MD <Electronically signed by Kurtis Martínez MD> 02/09/20 1054 Dictation Date/Time: 02/06/20 1548 Transcribed Date/Time: 02/07/20 0708 Manager Transit: ALBERTO Name Value Range Interpretation Code Description Data Ambreen rce(s) Supporting Document(s) ID Date Data Source [id number] 02/05/2020 07:43:00 AM EDT [facility] Name Value Range Interpretation Code Description Data Ambreen rce(s) Supporting Document(s) Thyroglobulin Antibody result <1.8 Normal (applies t o non-numeric results) [facility] Thyroglobulin Tumor Marker res Very abnor mal (applies to non-numeric units [facility] REFERENCE VALUE------ Athyrotic <0.1 Intact Thyroid <=33 Thyroglobulin(TM)Interp Normal (applies to non- numeric results) [facility] Thyroglobulin (Tg) levels must be interp reted in the context of TSH levels, serial Tg measurements and radioiodine ablation status. Tg levels of 0.1-2.0 ng/mL in athyrotic individuals on suppressive therapy indicate a low risk of clinically detectable recurrent papillary/follicular thyroid cancer. ADDITIONAL INFORMATION PLEASE NOTE: Thyroglobulin flagging is based on athyrotic reference values. The thyroglobulin and thyroglobulin antibody testing methods are immunoenzymatic assays manufactured by [employer] and performed on the [employer] 8 00. Values obtained from different assay methods or kits may be different and cannot be used interchangeably. The results cannot be interpreted as absolute evidence for the presence or absence of malignant disease. Test Performed by: [facility] [address] [place] [address] Golf Cart Assembler: Rubens Zamarripa M.D. Ph.D.; CLIA# [id number] ID Date Data Source [id number] 02/04/2020 07:31:[address] [facility] Name Value Range Interpretation Code Description Data Abmreen rce(s) Supporting Document(s) Thyroglobulin Antibody result <1.8 Normal (applies t o non-numeric results) [facility] Thyroglobulin Tumor Marker res [place] [facility] REFERENCE VALUE------ Athyrotic <0.1 Intact Thyroid <=33 Thyroglobulin(TM)Interp Normal (applies to non- numeric results) [facility] Thyroglobulin (Tg) levels must be interp reted in the context of TSH levels, serial Tg measurements and radioiodine ablation status. Tg levels of 0.1-2.0 ng/mL in athyrotic individuals on suppressive therapy indicate a low risk of clinically detectable recurrent papillary/follicular thyroid cancer. ADDITIONAL INFORMATION PLEASE NOTE: Thyroglobulin flagging is based on athyrotic reference values. The thyroglobulin and thyroglobulin antibody testing methods are immunoenzymatic assays manufactured by [employer] and performed on the [employer] 8 00. Values obtained from different assay methods or kits may be different and cannot be used interchangeably. The results cannot be interpreted as absolute evidence for the presence or absence of malignant disease. Test Performed by: [facility] [address] [place] [address] Golf Cart Assembler: Rubens Zamarripa M.D. Ph.D.; IA# [id number] ID Date Data Source [id number] 02/03/2020 02:40:00 PM EDT [facility] Value Range Interpretation Code Description Data Ambreen rce(s) Supporting Document(s) FESAT Iron result 28 ug/dL 37-170 [facility] Test Performed By: [place] [address] Director: Violet Shearer MD FESAT TIBC result 206 ug/dL 265-497 [facility] Test Performed By: [place] [address] Director: Violet Shearer MD FESAT %Iron Saturation result 12.0-55.0 No rmal (applies to non-numeric results) [facility] Test Performed By: [place] [address] Director: Violet Shearer MD ID Date Data Source [id number] 02/03/2020 02:40:00 PM [facility] Value Range Interpretation Code Description Data Ambreen rce(s) Supporting Document(s) Ferritin result 266 ng/mL 6.2-137.0 [facility] Test Performed By: [facility] [address] [place] [address] Director: Violet Shearer MD ID Date Data Source [id number] 02/03/2020 02:40:00 PM [facility] Value Range Interpretation Code Description Data Ambreen rce(s) Supporting Document(s) LDH result 120 U/L 84-246 Normal (applies to non-numeric resul ts) [facility] Test Performed By: [facility] [address] [place] [address] Director: Violet Shearer MD ID Date Data Source [id number] 02/03/2020 02:40:00 PM EDT [facility] Value Range Interpretation Code Description Data Ambreen rce(s) Supporting Document(s) Vitamin B12 result 823 pg/mL 193-986 Normal (applies to non-numer ic results) [facility] Test Performed By: [facility] [address] [place] [address] Director: Violet Shearer MD ID Date Data Source [id number] 02/03/2020 02:40:00 PM EDT [facility] Value Range Interpretation Code Description Data Ambreen rce(s) Supporting Document(s) Folate result 2.76-20.0 [place] [facility] Test Performed By: [facility] [address] [place] [address] Director: Violet Shearer MD ID Date Data Source [id number] 02/03/2020 02:20:00 PM EDT [facility] Value Range Interpretation Code Description Data Ambreen rce(s) Supporting Document(s) Iron FE Level 28 ug/dL 37-170 Below low normal [facility] Test Performed By: [facility] [address] [place] [address] Director: Violet Shearer MD Total Iron Binding Capacity 206 ug/dL 265-497 Below low normal [facility] Test Performed By: [facility] [address] [place] [address] Director: Violet Shearer MD %Iron Saturation 12.0-55.0 Normal (applies to non-numeric results) [facility] Test Performed By: [facility] [address] [place] [address] Director: Violet Shearer MD ID Date Data Source [id number] 02/03/2020 02:20:00 PM EDT [facility] Value Range Interpretation Code Description Data Ambreen rce(s) Supporting Document(s) Ferritin 266 ng/mL 6.2-137.0 Above high normal [facility] Test Performed By: [facility] [address] [place] [address] Director: Violet Shearer MD ID Date Data Source [id number] 02/03/2020 02:20:00 PM EDT [facility] Value Range Interpretation Code Description Data Ambreen rce(s) Supporting Document(s) LDH 120 U/L 84-246 Normal (applies to non-numeric resul ts) [facility] Test Performed By: [facility] [address] [place] [address] Director: Violet Shearer MD ID Date Data Source [id number] 02/03/2020 02:20:00 PM EDT [facility] Value Range Interpretation Code Description Data Ambreen rce(s) Supporting Document(s) Vitamin B12 823 pg/mL 193-986 Normal (applies to non-numeric resu lts) [facility] Test Performed By: [facility] [address] [place] [address] Director: Violet Shearer MD ID Date Data Source [id number] 02/03/2020 02:20:00 PM EDT [facility] Value Range Interpretation Code Description Data Ambreen rce(s) Supporting Document(s) Folate 2.76-20.0 Above high normal [facility] Test Performed By: [facility] [address] [place] [address] Director: Violet Shearer MD ID Date Data Source [id number] 02/03/2020 10:06:00 AM EDT [facility] Value Range Interpretation Code Description Data Ambreen rce(s) Supporting Document(s) Thyroid Stimulate Hormone TSH 0.358-3.74 Below low normal [facility] ID Date Data Source [id number] 02/03/2020 10:06:00 AM EDT [facility] Value Range Interpretation Code Description Data Ambreen rce(s) Supporting Document(s) Free T4 (Free Thyroxine) 0.76-1.46 Normal (applies to non -numeric results) [facility] ID Date Data Source [id number] 02/03/2020 09:27:00 AM EDT [facility] Name Value Range Interpretation Code Description Data Ambreen rce(s) Supporting Document(s) Sodium 137 mmol/L 136-145 Normal (applies to non-numeric resul ts) [facility] Potassium 3.5-5.1 Normal (applies to non-numeric resul ts) [facility] Chloride 102 mmol/L 98-107 Normal (applies to non-numeric resul ts) [facility] Carbon Dioxide CO2 21-32 Normal (applies to non-numer ic results) [facility] Anion Gap 5.0-16.0 Below low normal [facility] BUN 11 mg/dL 7-18 Normal (applies to non-numeric results) [facility] Creatinine,Serum 0.7-1.2 Normal (applies to non-numeric results) [facility] GFR >60 Normal (applies to non-numeric results) [facility] Glucose Level 142 mg/dL 60-99 Above high normal [facility] Reference range is only applicable when patient is fasting Note the following drug interference: Sulfasalazine Sulfapyridine Can see falsely depressed Can see falsely elevated result with up to 17% results with up to 11% decrease in measurement increase in measurement Recommend patients be collected for this test prior to administration of either drug. Calcium 8.5-10.1 Below low normal [facility] Bilirubin,Total 0.1-1.9 Normal (applies to non-numeric results) [facility] SGOT(AST) 9 U/L 15-37 [facility] Note the following drug interference: Sulfasalazine Sulfapyridine Can see falsely depressed Can see falsely elevated result with up to 10% results with up to 10% decrease in measurement increase in measurement Recommend patients be collected for this test prior to administration of either drug. SGPT(ALT) 18 U/L 12-78 Normal (applies to non-numeric resul ts) [facility] Note the following drug interference: Sulfasalazine Sulfapyridine Can see falsely depressed Can see falsely elevated result with up to 29% results with up to 10% decrease in measurement increase in measurement Recommend patients be collected for this test prior to administration of either drug. Alkaline Phosphatase 83 U/L 38-126 Normal (applies to non-num yocasta results) [facility] can increase Alkaline Phosp le vels up to 2 times the normal adult value. Normal values for children and adolescents are 2 to 3 times the normal adult value. Total Protein 6.0-8.2 Normal (applies to non-numeric re sults) [facility] Albumin Level 3.4-5.0 Below low normal [facility] ID Date Data Source [id number] 02/03/2020 08:49:00 AM EDT [facility] Name Value Range Interpretation Code Description Data Ambreen rce(s) Supporting Document(s) White Blood Count 3.5-10.5 Normal (applies to non-numeri c results) [facility] Red Blood Count 3.90-5.00 Normal (applies to non-numeric results) [facility] Hemoglobin 12.0-15.5 Below low normal [facility] Hematocrit 34.9-44.5 Normal (applies to non-numeric resul ts) [facility] Mean Corpuscular Volume 81.2-95.1 Normal (applies to non- numeric results) [facility] Mean Corpuscular Hgb 25.6-32.2 Normal (applies to non-num yocasta results) [facility] Mean Corpuscular Hgb Conc 32.0-36.0 Below low normal [facility] Red Cell Distribution Width 11.9-15.5 Normal (appli es to non-numeric results) [facility] Platelet Count 404 x10 3/uL 150-450 Normal (applies to non-numeric results) [facility] Mean Platelet Volume 9.4-12.4 Below low normal [facility] Neutrophils% (Auto) 31.0-71.0 Above high normal [facility] Lymphocytes% (Auto) 20.0-55.[address] [facility] Monocytes% (Auto) 4.0-12.0 Normal (applies to non-numeri c results) [facility] Eosinophils% (Auto) 1.0-8.0 Normal (applies to non-nume klaudia results) [facility] Basophils% (Auto) 0.0-2.0 Normal (applies to non-numeri c results) [facility] Immature Granulocytes% (Auto) 0.0-2.0 Normal (marvin lies to non-numeric results) [facility] Neutrophils# (Auto) 1.50-6.20 Above high normal [facility] Lymphocytes# (Auto) 1.20-4.00 Normal (applies to non-nume klaudia results) [facility] Monocytes# (Auto) 0.00-0.90 Normal (applies to non-numeri c results) [facility] Eosinophils# (Auto) 0.00-0.50 Normal (applies to non-nume klaudia results) [facility] Basophils# (Auto) 0.00-0.20 Normal (applies to non-numeri c results) [facility] Immature Granulocytes# (Auto) 0.00-7.00 No rmal (applies to non-numeric results) [facility] ID Date Data Source [id number] 12/30/2019 02:23:00 PM EDT [facility] Name Value Range Interpretation Code Description Data Ambreen rce(s) Supporting Document(s) CRP,Wide Range result <3.00 [place] [facility] Test [facility]formed By: [facility] [address] [place] [address] Director: Violet Shearer MD ID Date Data Source [id number] 12/30/2019 02:17:[address] [facility] Name Value Range Interpretation Code Description Data Ambreen rce(s) Supporting Document(s) C-Reactive Protein,Wide Range <3.00 Above high normal [facility] Test Performed By: [facility] [address] [place] [address] Director: Violet Shearer MD ID Date Data Source [id number] 12/30/2019 08:58:00 AM EDT [facility] Name Value Range Interpretation Code Description Data Ambreen rce(s) Supporting Document(s) Bilirubin,Total 0.1-1.9 Normal (applies to non-numeric results) [facility] Bilirubin,Direct 0.05-0.20 Normal (applies to non-numeric results) [facility] SGOT(AST) 6 U/L 15-37 Below low normal [facility] Note the following drug interference: Sulfasalazine Sulfapyridine Can see falsely depressed Can see falsely elevated result with up to 10% results with up to 10% decrease in measurement increase in measurement Recommend patients be collected for this test prior to administration of either drug. SGPT(ALT) 16 U/L 12-78 Normal (applies to non-numeric resul ts) [facility] Note the following drug interference: Sulfasalazine Sulfapyridine Can see falsely depressed Can see falsely elevated result with up to 29% results with up to 10% decrease in measurement increase in measurement Recommend patients be collected for this test prior to administration of either drug. Alkaline Phosphatase 92 U/L 38-126 Normal (applies to non-num yocasta results) [facility] can increase Alkaline Phosp le vels up to 2 times the normal adult value. Normal values for children and adolescents are 2 to 3 times the normal adult value. Total Protein 6.0-8.2 Normal (applies to non-numeric re sults) [facility] Albumin Level 3.4-5.0 Below low normal [facility] ID Date Data Source [id number] 12/30/2019 08:58:[address] [facility] Name Value Range Interpretation Code Description Data Ambreen rce(s) Supporting Document(s) Sodium 138 mmol/L 136-145 Normal (applies to non-numeric resul ts) [facility] Potassium 3.5-5.1 Normal (applies to non-numeric resul ts) [facility] Chloride 103 mmol/L 98-107 Normal (applies to non-numeric resul ts) [facility] Carbon Dioxide CO2 21-32 Normal (applies to non-numer ic results) [facility] Anion Gap 5.0-16.0 Normal (applies to non-numeric resul ts) [facility] BUN 11 mg/dL 7-18 Normal (applies to non-numeric results) [facility] Creatinine,Serum 0.7-1.2 Normal (applies to non-numeric results) [facility] GFR >60 Normal (applies to non-numeric results) [facility] Glucose Level 125 mg/dL 60-99 Above high normal [facility] Reference range is only applicable when patient is fasting Note the following drug interference: Sulfasalazine Sulfapyridine Can see falsely depressed Can see falsely elevated result with up to 17% results with up to 11% decrease in measurement increase in measurement Recommend patients be collected for this test prior to administration of either drug. Calcium 8.5-10.1 Below low normal [facility] ID Date Data Source [id number] 12/30/2019 08:39:00 AM EDT [facility] Name Value Range Interpretation Code Description Data Ambreen rce(s) Supporting Document(s) Hemoglobin A1c 4.4-6.2 Above high normal [facility] Estimated Avg Glucose 163 mg/dL 126-240 Normal (applies to non-numeric results) [facility] ID Date Data Source [id number] 12/30/2019 08:14:[address] [facility] Name Value Range Interpretation Code Description Data Ambreen rce(s) Supporting Document(s) White Blood Count 3.5-10.5 Normal (applies to non-numeri c results) [facility] Red Blood Count 3.90-5.00 Normal (applies to non-numeric results) [facility] Hemoglobin 12.0-15.5 Below low normal [facility] Hematocrit 34.9-44.5 Normal (applies to non-numeric resul ts) [facility] Mean Corpuscular Volume 81.2-95.1 Normal (applies to non- numeric results) [facility] Mean Corpuscular Hgb 25.6-32.2 Normal (applies to non-num yocasta results) [facility] Mean Corpuscular Hgb Conc 32.0-36.0 Below low normal [facility] Red Cell Distribution Width 11.9-15.5 Normal (appli es to non-numeric results) [facility] Platelet Count 336 x10 3/uL 150-450 Normal (applies to non-numeric results) [facility] Mean Platelet Volume 9.4-12.4 Normal (applies to non-num yocasta results) [facility] Neutrophils% (Auto) 31.0-71.0 Above high normal [facility] Lymphocytes% (Auto) 20.0-55.[address] [facility] Monocytes% (Auto) 4.0-12.0 Normal (applies to non-numeri c results) [facility] Eosinophils% (Auto) 1.0-8.0 Normal (applies to non-nume klaudia results) [facility] Basophils% (Auto) 0.0-2.0 Normal (applies to non-numeri c results) [facility] Immature Granulocytes% (Auto) 0.0-2.0 Normal (marvin lies to non-numeric results) [facility] Neutrophils# (Auto) 1.50-6.20 Normal (applies to non-nume klaudia results) [facility] Lymphocytes# (Auto) 1.20-4.00 Normal (applies to non-nume klaudia results) [facility] Monocytes# (Auto) 0.00-0.90 Normal (applies to non-numeri c results) [facility] Eosinophils# (Auto) 0.00-0.50 Normal (applies to non-nume klaudia results) [facility] Basophils# (Auto) 0.00-0.20 Normal (applies to non-numeri c results) [facility] Immature Granulocytes# (Auto) 0.00-7.00 No rmal (applies to non-numeric results) [facility] ID Date Data Source [id number] 12/30/2019 08:14:00 AM EDT [facility] Name Value Range Interpretation Code Description Data Ambreen rce(s) Supporting Document(s) Erythrocyte Sedimentation rate 49 mm/hr 0-20 Above high ramon l [facility] ID Date Data Source [id number] 11/17/2019 12:59:00 PM EDT [facility] Name Value Range Interpretation Code Description Data Ambreen rce(s) Supporting Document(s) CPK result 66 U/L 26-192 Normal (applies to non-numeric resul ts) [facility] Test Performed By: [facility] [address] [place] [address] Director: Violet Shearer MD ID Date Data Source [id number] 11/17/2019 12:50:[address] [facility] Name Value Range Interpretation Code Description Data Ambreen rce(s) Supporting Document(s) CPK 66 U/L 26-192 Normal (applies to non-numeric resul ts) [facility] Test Performed By: [facility] [address] [place] [address] Director: Violet Shearer MD ID Date Data Source [id number] 11/17/2019 09:59:00 AM EDT [facility] Name Value Range Interpretation Code Description Data Ambreen rce(s) Supporting Document(s) Hemoglobin A1c 4.4-6.2 Above high normal [facility] Estimated Avg Glucose 160 mg/dL 126-240 Normal (applies to non-numeric results) [facility] ID Date Data Source [id number] 11/17/2019 08:50:00 AM EDT [facility] Name Value Range Interpretation Code Description Data Ambreen rce(s) Supporting Document(s) Bilirubin,Total 0.1-1.9 Normal (applies to non-numeric results) [facility] Bilirubin,Direct 0.05-0.20 Normal (applies to non-numeric results) [facility] SGOT(AST) 11 U/L 15-37 Below low normal [facility] Note the following drug interference: Sulfasalazine Sulfapyridine Can see falsely depressed Can see falsely elevated result with up to 10% results with up to 10% decrease in measurement increase in measurement Recommend patients be collected for this test prior to administration of either drug. SGPT(ALT) 17 U/L 12-78 Normal (applies to non-numeric resul ts) [facility] Note the following drug interference: Sulfasalazine Sulfapyridine Can see falsely depressed Can see falsely elevated result with up to 29% results with up to 10% decrease in measurement increase in measurement Recommend patients be collected for this test prior to administration of either drug. Alkaline Phosphatase 93 U/L 38-126 Normal (applies to non-num yocasta results) [facility] can increase Alkaline Phosp le vels up to 2 times the normal adult value. Normal values for children and adolescents are 2 to 3 times the normal adult value. Total Protein 6.0-8.2 Normal (applies to non-numeric re sults) [facility] Albumin Level 3.4-5.0 Below low normal [facility] ID Date Data Source [id number] 11/17/2019 08:50:00 AM EDT [facility] Name Value Range Interpretation Code Description Data Ambreen rce(s) Supporting Document(s) Sodium 138 mmol/L 136-145 Normal (applies to non-numeric resul ts) [facility] Potassium 3.5-5.1 Normal (applies to non-numeric resul ts) [facility] Chloride 102 mmol/L 98-107 Normal (applies to non-numeric resul ts) [facility] Carbon Dioxide CO2 21-32 Normal (applies to non-numer ic results) [facility] Anion Gap 5.0-16.0 Normal (applies to non-numeric resul ts) [facility] BUN 8 mg/dL 7-18 Normal (applies to non-numeric results) [facility] Creatinine,Serum 0.7-1.2 Normal (applies to non-numeric results) [facility] GFR >60 Normal (applies to non-numeric results) [facility] Glucose Level 135 mg/dL 60-99 Above high normal [facility] Reference range is only applicable when patient is fasting Note the following drug interference: Sulfasalazine Sulfapyridine Can see falsely depressed Can see falsely elevated result with up to 17% results with up to 11% decrease in measurement increase in measurement Recommend patients be collected for this test prior to administration of either drug. Calcium 8.5-10.1 Below low normal [facility] ID Date Data Source [id number] 11/17/2019 08:50:00 AM EDT [facility] Name Value Range Interpretation Code Description Data Ambreen rce(s) Supporting Document(s) Triglycerides 92 mg/dL <150 Normal (applies to non-numeric re sults) [facility] Cholesterol 166 mg/dL 100-200 Normal (applies to non-numeric resu lts) [facility] LDL Cholesterol Calculated 105 0-130 Normal (applies to n on-numeric results) [facility] HDL Cholesterol 43 mg/dL 40-60 Normal (applies to non-numeric results) [facility] Cholesterol/HDL Ratio 3.6-6.7 Normal (applies to non-nu meric results) [facility] ID Date Data Source [id number] 10/28/2019 11:02:00 PM EDT [facility] Name Value Range Interpretation Code Description Data Ambreen e(s) Supporting Document(s) Thyroglobulin Antibody result <4.0 Normal (applies t o non-numeric results) [facility] Thyroglobulin Tumor Marker res Very abnor mal (applies to non-numeric units [facility] REFERENCE VALUE------ Athyrotic <0.1 Intact Thyroid <=33 Thyroglobulin(TM)Interp Normal (applies to non- numeric results) [facility] Thyroglobulin (Tg) levels must be interp reted in the context of TSH levels, serial Tg measurements and radioiodine ablation status. Tg levels of 0.1-2.0 ng/mL in athyrotic individuals on suppressive therapy indicate a low risk of clinically detectable recurrent papillary/follicular thyroid cancer. ADDITIONAL INFORMATION PLEASE NOTE: Thyroglobulin flagging is based on athyrotic reference values. The thyroglobulin and thyroglobulin antibody testing methods are immunoenzymatic assays manufactured by [employer] and performed on the [employer] DXI 8 00. Values obtained from different assay methods or kits may be different and cannot be used interchangeably. The results cannot be interpreted as absolute evidence for the presence or absence of malignant disease. Test Performed by: [facility] [place] [address] [employer] Cart Assembler: Rubens Zamarripa M.D. Ph.D.; CLIA# [id number] ID Date Data Source [id number] 10/28/2019 03:32:[address] [facility] Name Value Range Interpretation Code Description Data Ambreen rce(s) Supporting Document(s) Thyroglobulin Antibody result <4.0 Normal (applies t o non-numeric results) [facility] Thyroglobulin Tumor Marker res [place] [facility] REFERENCE VALUE------ Athyrotic <0.1 Intact Thyroid <=33 Thyroglobulin(TM)Interp Normal (applies to non- numeric results) [facility] Thyroglobulin (Tg) levels must be interp reted in the context of TSH levels, serial Tg measurements and radioiodine ablation status. Tg levels of 0.1-2.0 ng/mL in athyrotic individuals on suppressive therapy indicate a low risk of clinically detectable recurrent papillary/follicular thyroid cancer. ADDITIONAL INFORMATION PLEASE NOTE: Thyroglobulin flagging is based on athyrotic reference values. The thyroglobulin and thyroglobulin antibody testing methods are immunoenzymatic assays manufactured by [employer] and performed on the [employer] 8 00. Values obtained from different assay methods or kits may be different and cannot be used interchangeably. The results cannot be interpreted as absolute evidence for the presence or absence of malignant disease. Test Performed by: [facility] [place] [address] [employer]er: Rubens Zamarripa M.D. Ph.D.; CLIA# [id number] ID Date Data Source [id number] 10/25/2019 09:15:[address] [facility] Name Value Range Interpretation Code Description Data Ambreen rce(s) Supporting Document(s) Thyroid Stimulate Hormone TSH 0.358-3.74 Below low normal [facility] ID Date Data Source [id number] 10/25/2019 09:15:[address] [facility] Name Value Range Interpretation Code Description Data Ambreen rce(s) Supporting Document(s) Free T4 (Free Thyroxine) 0.76-1.46 Above high normal [facility] ID Date Data Source [id number] 08/04/2019 01:29:00 PM [facility] Name Value Range Interpretation Code Description Data Ambreen rce(s) Supporting Document(s) Vitamin D, Total 30.0-100.0 Below low normal [facility] ID Date Data Source [id number] 08/04/2019 11:11:00 AM [facility] Value Range Interpretation Code Description Data Ambreen rce(s) Supporting Document(s) Hemoglobin A1c 4.4-6.2 Above high normal [facility] Estimated Avg Glucose 140 mg/dL 126-240 Normal (applies to non-numeric results) [facility] ID Date Data Source [id number] 08/02/2019 06:17:00 PM [facility] Value Range Interpretation Code Description Data Ambreen rce(s) Supporting Document(s) Prolactin result Normal (applies to non-numeric results) [facility] Test Performed By: [facility] [address] [place] [address] Director: Violet Shearer MD Females: Non- 2.2 - 30.3 ng/mL Postmenopausal 0.7 - 31.5 ng/mL 8.1 - 347.6 ng/mL ID Date Data Source [id number] 08/02/2019 05:52:00 PM [facility] Name Value Range Interpretation Code Description Data Ambreen rce(s) Supporting Document(s) Prolactin Normal (applies to non-numeric results) [facility] Test Performed By: [facility] [address] [place], [place] [id number] Director: Violet Shearer MD Females: Non- 2.2 - 30.3 ng/mL Postmenopausal 0.7 - 31.5 ng/mL 8.1 - 347.6 ng/mL ID Date Data Source [id number] 08/02/2019 10:29:00 AM EST [facility] Name Value Range Interpretation Code Description Data Ambreen rce(s) Supporting Document(s) Sodium 140 mmol/L 136-145 Normal (applies to non-numeric resul ts) [facility] Potassium 3.5-5.1 Normal (applies to non-numeric resul ts) [facility] Chloride 102 mmol/L 98-107 Normal (applies to non-numeric resul ts) [facility] Carbon Dioxide CO2 21-32 Normal (applies to non-numer ic results) [facility] Anion Gap 5.0-16.0 Normal (applies to non-numeric resul ts) [facility] BUN 11 mg/dL 7-18 Normal (applies to non-numeric results) [facility] Creatinine,Serum 0.7-1.2 Below low normal [facility] GFR >60 Normal (applies to non-numeric results) [facility] Glucose Level 119 mg/dL 60-99 Above high normal [facility] Reference range is only applicable when patient is fasting Note the following drug interference: Sulfasalazine Sulfapyridine Can see falsely depressed Can see falsely elevated result with up to 17% results with up to 11% decrease in measurement increase in measurement Recommend patients be collected for this test prior to administration of either drug. Calcium 8.5-10.1 Normal (applies to non-numeric resul ts) [facility] Bilirubin,Total 0.1-1.9 Normal (applies to non-numeric results) [facility] SGOT(AST) 15 U/L 15-37 Normal (applies to non-numeric resul ts) [facility] Note the following drug interference: Sulfasalazine Sulfapyridine Can see falsely depressed Can see falsely elevated result with up to 10% results with up to 10% decrease in measurement increase in measurement Recommend patients be collected for this test prior to administration of either drug. SGPT(ALT) 20 U/L 12-78 Normal (applies to non-numeric resul ts) [facility] Note the following drug interference: Sulfasalazine Sulfapyridine Can see falsely depressed Can see falsely elevated result with up to 29% results with up to 10% decrease in measurement increase in measurement Recommend patients be collected for this test prior to administration of either drug. Alkaline Phosphatase 94 U/L 38-126 Normal (applies to non-num yocasta results) [facility] can increase Alkaline Phosp le vels up to 2 times the normal adult value. Normal values for children and adolescents are 2 to 3 times the normal adult value. Total Protein 6.0-8.2 Normal (applies to non-numeric re sults) [facility] Albumin Level 3.4-5.0 Below low normal [facility] ID Date Data Source [id number] 08/02/2019 10:29:00 AM [facility] Name Value Range Interpretation Code Description Data Ambreen rce(s) Supporting Document(s) Triglycerides 140 mg/dL <150 Normal (applies to non-numeric re sults) [facility] Cholesterol 178 mg/dL 100-200 Normal (applies to non-numeric resu lts) [facility] LDL Cholesterol Calculated 107 0-130 Normal (applies to n on-numeric results) [facility] HDL Cholesterol 43 mg/dL 40-60 Normal (applies to non-numeric results) [facility] Cholesterol/HDL Ratio 3.6-6.7 Normal (applies to non-nu meric results) [facility] Procedure Social History Code Duration Value Status Description Data Source(s ) Smoking 07/05/2020 12:00:00 AM EST Never Smoker completed Never S moker eCW1 ([facility]) Smoking 07/05/2020 12:00:00 AM EST Never Smoker completed Never S moker eCW1 ([facility]) Smoking 12/16/2019 12:00:00 AM EDT Never Smoker completed Never S moker eCW1 ([facility]) Smoking 12/16/2019 12:00:00 AM EDT Never Smoker completed Never S moker eCW1 ([facility]) Smoking 12/16/2019 12:00:00 AM EDT Never Smoker completed Never S moker eCW1 ([facility]) Smoking 12/16/2019 12:00:00 AM EDT Never Smoker completed Never S moker eCW1 ([facility]) Smoking 12/16/2019 12:00:00 AM EDT Never Smoker completed Never S moker eCW1 ([facility]) Vital Signs ID Date Data Source UNK Name Value Range Interpretation Code Description Data Source(s) Diastolic blood pressure 74 mm[Hg] 74 mm[Hg] eCW1 ([facility]) Systolic blood pressure 100 mm[Hg] 100 mm[Hg] e CW1 ([facility]) Oxygen saturation in Arterial blood by Pulse oximetry 97 % 97 % eCW1 ([facility]) Body mass index (BMI) [Ratio] 28.72 kg/m2 28.72 kg/m2 eCW1 ([facility]) Body weight 152 [lb_av] 152 [lb_av] eCW1 ([facility]) Body height 61 [in_i] 61 [in_i] eCW1 ([facility]) Body mass index (BMI) [Ratio] 28.5 kg/m2 28.5 k g/m2 MEDENT ([facility]) Body weight 156.00 [lb_av] 156.00 [lb_av] MEDEN T ([facility]) Body height 62 [in_i] 62 [in_i] MEDENT ([facility]) 5'2" Respiratory rate 18 /min 18 /min MED[facility] ( [facility]) Body temperature 97.9 [degF] 97.9 [degF] MEDENT ([facility]) Heart rate 90 /min 90 /min MEDENT ([facility]) Diastolic blood pressure 90 mm[Hg] 90 mm[Hg] MEDENT ([facility]) Systolic blood pressure 130 mm[Hg] 130 mm[Hg] M EDENT ([facility]) Body mass index (BMI) [Ratio] 29.85 kg/m2 29.85 kg/m2 eCW1 ([facility]) Body weight Measured 158 [lb_av] 158 [lb_av] eC W1 ([facility]) Body height 61 [in_us] 61 [in_us] eCW1 ([facility]) ID Date Data Source [id number] 09/16/2020 10:32:00 AM EST [facility] Name Value Range Interpretation Code Description Data Source(s) Weight Measurement Method 8 8 [facility] Weight (Calculated Kilograms) 65.63 65.63 [facility] Weight 2272 2272 [facility] pital Temperature Source 7 7 [facility] Temperature 97.5 97.5 [facility] Respiratory Effort 1 1 [facility] Respiratory Rate 20 20 [facility] Pulse Rate 123 123 [facility] Height (Calculated Centimeters) 157.48 157. 48 [facility] Height 62 62 [facility] Blood Pressure 103/79 103/79 [facility] Body Mass Index (BMI) 26.[address] [facility] Weight Measurement Method 8 8 [facility] Weight (Calculated Kilograms) 65.63 65.63 [facility] Weight 2272 2272 [facility] pital Temperature Source 7 7 [facility] Temperature 97.5 97.5 [facility] Respiratory Effort 1 1 [facility] Respiratory Rate 20 20 [facility] Pulse Rate 123 123 [facility] pital Height (Calculated Centimeters) 157.48 157. 48 [facility] Height 62 62 [facility] Blood Pressure 103/79 103/79 [facility] Body Mass Index (BMI) 26.[address] [facility] Weight (Calculated Kilograms) 65.63 65.63 [facility] Height (Calculated Centimeters) 157.48 157. 48 [facility] Body Mass Index (BMI) 26.[address] [facility] Weight (Calculated Kilograms) 65.63 65.63 [facility] Height (Calculated Centimeters) 157.48 157. 48 [facility] Body Mass Index (BMI) 26.[address] [facility] ID Date Data Source [id number] 08/26/2020 09:11:00 AM EST [facility] Name Value Range Interpretation Code Description Data Source(s) Weight (Calculated Kilograms) 65.63 65.63 [facility] Weight 2272 2 [facility] pital Temperature Source 7 7 [facility] Temperature 96.8 96.8 [facility] Pulse Rate 94 94 [facility] pital Height (Calculated Centimeters) 157.48 157. 48 [facility] Height 62 62 [facility] Blood Pressure 96/75 96/75 [facility] Body Mass Index (BMI) [address] [facility] Weight (Calculated Kilograms) 65.63 65.63 [facility] Weight 22712 [facility] pital Temperature Source 7 7 [facility] Temperature 96.8 96.8 [facility] Pulse Rate 94 94 [facility] pital Height (Calculated Centimeters) 157.48 157. 48 [facility] Height 62 62 [facility] Blood Pressure 96/75 96/75 [facility] Body Mass Index (BMI) 26.[address] [facility] Weight (Calculated Kilograms) 65.63 65.63 [facility] Weight 22712 [facility] pital Temperature Source 7 7 [facility] Temperature 96.8 96.8 [facility] Pulse Rate 120 120 [facility] pital Height (Calculated Centimeters) 157.48 157. 48 [facility] Height 62 62 [facility] Blood Pressure 96/75 96/75 [facility] Body Mass Index (BMI) 26.[address] [facility] Weight (Calculated Kilograms) 65.63 65.63 [facility] Height (Calculated Centimeters) 157.48 157. 48 [facility] Body Mass Index (BMI) 26.[address] [facility] Weight (Calculated Kilograms) 65.63 65.63 [facility] Height (Calculated Centimeters) 157.48 157. 48 [facility] Body Mass Index (BMI) 26.[address] [facility] ID Date Data Source [id number] 08/28/2020 01:42:00 PM EST [facility] Name Value Range Interpretation Code Description Data Source(s) Weight (Calculated Kilograms) 65.63 65.63 [facility] Weight 2272 2272 [facility] pital Temperature Source 7 7 [facility] Temperature 98 98 [facility] Respiratory Effort 1 1 [facility] Respiratory Rate 18 18 [facility] Pulse Assessment Method 4 4 [facility] Pulse Rate 105 105 [facility] Height (Calculated Centimeters) 157.48 157. 48 [facility] Height 62 62 [facility] Blood Pressure 105/74 105/74 [facility] Body Mass Index (BMI) [address] [facility] Weight (Calculated Kilograms) 65.63 65.63 [facility] Weight 2272 2272 [facility] pital Temperature Source 7 7 [facility] Temperature 98 98 [facility] Respiratory Effort 1 1 [facility] Respiratory Rate 16 16 [facility] Pulse Assessment Method 4 4 [facility] Pulse Rate 128 128 [facility] pital Height (Calculated Centimeters) 157.48 157. 48 [facility] Height 62 62 [facility] Blood Pressure 112/83 112/83 [facility] Body Mass Index (BMI) 26.[address] [facility] Weight (Calculated Kilograms) 65.63 65.63 [facility] Weight 2272 2272 [facility] pital Temperature Source 7 7 [facility] Temperature 98 98 [facility] Respiratory Effort 1 1 [facility] Respiratory Rate 16 16 [facility] Pulse Assessment Method 4 4 [facility] Pulse Rate 128 128 [facility] pital Height (Calculated Centimeters) 157.48 157. 48 [facility] Height 62 62 [facility] Blood Pressure 112/83 112/83 [facility] Body Mass Index (BMI) 26.[address] [facility] Weight (Calculated Kilograms) 65.[address] [place] [address] Height (Calculated Centimeters) 157.48 157. 48 [facility] Body Mass Index (BMI) 26.[address] [facility] Weight (Calculated Kilograms) 65.[address] Height (Calculated Centimeters) 157.48 157. 48 [facility] Body Mass Index (BMI) 26.[address] [facility] ID Date Data Source [id number] 08/20/2020 12:06:00 AM EST [facility] Name Value Range Interpretation Code Description Data Source(s) Weight (Calculated Kilograms) 65.63 6563 [facility] Height (Calculated Centimeters) 157.48 157. 48 [facility] Body Mass Index (BMI) 26.[address] [facility] ID Date Data Source [id number] 08/18/2020 09:18:00 AM EST [facility] Name Value Range Interpretation Code Description Data Source(s) Weight (Calculated Kilograms) 65.63 65.63 [facility] Height (Calculated Centimeters) 157.48 157. 48 [facility] Body Mass Index (BMI) 26.[address] [facility] ID Date Data Source [id number] 08/11/2020 12:01:00 AM EST [facility] Name Value Range Interpretation Code Description Data Source(s) Weight (Calculated Kilograms) 65.[address] Height (Calculated Centimeters) 157.48 157. 48 [facility] Body Mass Index (BMI) 26.[address] [facility] ID Date Data Source [id number] 08/04/2020 05:37:00 PM EST [facility] Name Value Range Interpretation Code Description Data Source(s) Weight (Calculated Kilograms) 65.63 65.63 [facility] Height (Calculated Centimeters) 157.48 157. 48 [facility] Body Mass Index (BMI) 26.[address] [facility] ID Date Data Source [id number] 07/27/2020 10:24:00 AM EST [facility] Name Value Range Interpretation Code Description Data Source(s) Weight (Calculated Kilograms) 65.63 65.63 [facility] Height (Calculated Centimeters) 157.48 157. 48 [facility] Body Mass Index (BMI) 26.[address] [facility] ID Date Data Source [id number] 06/04/2020 02:41:00 PM EDT [facility] Name Value Range Interpretation Code Description Data Source(s) Weight (Calculated Kilograms) 65.[address] [place] [address] Height (Calculated Centimeters) 157.48 157. 48 [facility] Body Mass Index (BMI) 26.[address] [facility] Weight (Calculated Kilograms) 65.[address] [place] [address] Height (Calculated Centimeters) 157.48 157. 48 [facility] Body Mass Index (BMI) 26.[address] [facility] ID Date Data Source [id number] 05/26/2020 12:02:00 AM EDT [facility] Name Value Range Interpretation Code Description Data Source(s) Weight (Calculated Kilograms) 65.63 65.63 [facility] Height (Calculated Centimeters) 157.48 157. 48 [facility] Body Mass Index (BMI) 26.[address] [facility] ID Date Data Source [id number] 05/25/2020 03:49:00 PM EDT [facility] Name Value Range Interpretation Code Description Data Source(s) Weight (Calculated Kilograms) 65.[address] [place] [address] Height (Calculated Centimeters) 157.48 157. 48 [facility] Body Mass Index (BMI) 26.[address] [facility] Weight (Calculated Kilograms) 65.63 65.63 [facility] Height (Calculated Centimeters) 157.48 157. 48 [facility] Body Mass Index (BMI) 26.[address] [facility] ID Date Data Source [id number] 05/14/2020 07:19:00 PM EDT [facility] Name Value Range Interpretation Code Description Data Source(s) Weight Measurement Method 8 8 [facility] Weight (Calculated Kilograms) 65.63 65.63 [facility] Weight 2352 2352 [facility] pital Temperature Source 7 7 [facility] Temperature 96.3 96.3 [facility] Respiratory Effort 1 1 [facility] Respiratory Rate 18 18 [facility] Pulse Assessment Method 4 4 [facility] Pulse Rate 103 103 [facility] pital Height (Calculated Centimeters) 157.48 157. 48 [facility] Height 62 62 [facility] Blood Pressure 112/74 112/74 [facility] Body Mass Index (BMI) 26.[address] Weight Measurement Method 8 8 [facility] Weight (Calculated Kilograms) 65.63 65.63 [facility] Weight 2352 2352 [facility] pital Temperature Source 7 7 [facility] Temperature 96.3 96.3 [facility] Respiratory Effort 1 1 [facility] Respiratory Rate 18 18 [facility] Pulse Assessment Method 4 4 [facility] Pulse Rate 103 103 [facility] pital Height (Calculated Centimeters) 157.48 157. 48 [facility] Height 62 62 [facility] Blood Pressure 112/74 112/74 [facility] Body Mass Index (BMI) 26.[address] [facility] Weight (Calculated Kilograms) 65.63 65.63 [facility] Height (Calculated Centimeters) 157.48 157. 48 [facility] Body Mass Index (BMI) 26.[address] [facility] ID Date Data Source [id number] 05/12/2020 02:44:00 PM EDT [facility] Name Value Range Interpretation Code Description Data Source(s) Weight (Calculated Kilograms) 65.63 6563 [facility] Height (Calculated Centimeters) 157.48 157. 48 [facility] Body Mass Index (BMI) 26.[address] [facility] ID Date Data Source [id number] 03/30/2020 04:59:00 PM EDT [facility] Name Value Range Interpretation Code Description Data Source(s) Weight (Calculated Kilograms) 65.63 6563 [facility] Height (Calculated Centimeters) 157.48 157. 48 [facility] Body Mass Index (BMI) 26.[address] [facility] ID Date Data Source [id number] 03/05/2020 03:17:00 PM EDT [facility] Name Value Range Interpretation Code Description Data Source(s) Weight (Calculated Kilograms) 65.[address] Height (Calculated Centimeters) 157.48 157. 48 [facility] Body Mass Index (BMI) 26.[address] [facility] Weight (Calculated Kilograms) 65.[address] Height (Calculated Centimeters) 157.48 157. 48 [facility] Body Mass Index (BMI) 26.[address] [facility] Weight (Calculated Kilograms) 65.[address] [place] [address] Height (Calculated Centimeters) 157.48 157. 48 [facility] Body Mass Index (BMI) 26.[address] [facility] ID Date Data Source [id number] 02/26/2020 06:39:00 PM EDT [facility] Name Value Range Interpretation Code Description Data Source(s) Weight (Calculated Kilograms) 65.[address] Height (Calculated Centimeters) 157.48 157. 48 [facility] Body Mass Index (BMI) 26.[address] [facility] ID Date Data Source [id number] 02/09/2020 10:56:00 AM EDT [facility] Name Value Range Interpretation Code Description Data Source(s) Weight (Calculated Kilograms) 65.63 65.63 [facility] Height (Calculated Centimeters) 157.48 157. 48 [facility] Body Mass Index (BMI) 26.[address] ID Date Data Source [id number] 02/05/2020 07:43:00 AM EDT [facility] Name Value Range Interpretation Code Description Data Source(s) Weight (Calculated Kilograms) 65.63 65.63 [facility] Height (Calculated Centimeters) 157.48 157. 48 [facility] Body Mass Index (BMI) 26.[address] ID Date Data Source [id number] 12/31/2019 12:01:00 AM EDT [facility] Name Value Range Interpretation Code Description Data Source(s) Weight (Calculated Kilograms) 65.63 65.63 [facility] Height (Calculated Centimeters) 157.48 157. 48 [facility] Body Mass Index (BMI) 26.[address] ID Date Data Source [id number] 11/18/2019 12:01:00 AM EDT [facility] Name Value Range Interpretation Code Description Data Source(s) Weight (Calculated Kilograms) 65.63 65.63 [facility] Height (Calculated Centimeters) 157.48 157. 48 [facility] Body Mass Index (BMI) 26.[address] ID Date Data Source [id number] 10/28/2019 11:02:00 PM EDT [facility] Name Value Range Interpretation Code Description Data Source(s) Weight (Calculated Kilograms) 65.63 65.63 [facility] Height (Calculated Centimeters) 157.48 157. 48 [facility] Body Mass Index (BMI) 26.[address] ID Date Data Source [id number] 08/04/2019 01:29:00 PM EST [facility] Name Value Range Interpretation Code Description Data Source(s) Weight (Calculated Kilograms) 65.63 65.63 [facility] Height (Calculated Centimeters) 157.48 157. 48 [facility] Body Mass Index (BMI) 26.[address] [facility] Patient Treatment Plan of Care Planned Activity Planned Date Details Description Data Source (s) Hyoscyamine Sulfate 0.125 MG 02/27/2020 12:00:00 AM EDT eCW1 ([facility]) Hyoscyamine Sulfate 0.125 MG 02/27/2020 12:00:00 AM EDT eCW1 ([facility]) Hyoscyamine Sulfate 0.125 MG 02/27/2020 12:00:00 AM EDT eCW1 ([facility]) Hyoscyamine Sulfate 0.125 MG 02/27/2020 12:00:00 AM EDT eCW1 ([facility]) Suprep Bowel Prep Kit 17.5-3.13-1.6 GM/177ML 02/17/2020 12:00:00 AM EDT eCW1 ([facility]) Bisacodyl 5 MG Delayed Release Oral Tablet [Dulcolax] 01/26/2020 12:00:00 AM EDT eCW1 ([facility]) POLYETHYLENE GLYCOL 3350 142 MG/ML Oral Solution [Candy lax] 12/16/2019 12:00:00 AM EDT eCW1 ([facility]) POLYETHYLENE GLYCOL 3350 142 MG/ML Oral Solution [Candy lax] 12/16/2019 12:00:00 AM EDT eCW1 ([facility])
--- NOTE | 2020-09-17 11:24 | ROOR ---
Patient Name: Sarah Brown Procedure Date: 09/17/2020 10:58 AM Date of : 1975 Age: 45 Room: [facility] Gender: Female Note Status: Finalized Procedure: Total Colonoscopy to cecum + Bx. Indications: Iron deficiency anemia secondary to chronic blood loss, Suspected Crohn's disease of the colon, Crohn's disease of the colon, Follow-up of Crohn's disease of the colon, Disease activity assessment of Crohn's disease of the colon Providers: Bo Gentile MD Referring MD: Sincere Silva MD Requesting Provider: Medicines: Monitored Anesthesia Care Complications: No immediate complications. Procedure: Pre-Anesthesia Assessment: - The heart rate, respiratory rate, oxygen saturations, blood pressure, adequacy of pulmonary ventilation, and response to care were monitored throughout the procedure. The Colonoscope was introduced through the anus and advanced to the cecum, identified by appendiceal orifice and ileocecal valve. The colonoscopy was performed without difficulty. The patient tolerated the procedure well. The quality of the bowel preparation was good. Findings: The perianal and digital rectal examinations were normal. Inflammation characterized by adherent blood, congestion (edema), erosions, erythema, linear erosions, loss of vascularity, pseudopolyps, scarring, confluent ulcerations and deep ulcerations was found in a continuous and circumferential pattern from the anus to the descending colon. The proximal descending colon, the transverse colon, the ascending colon and the cecum were spared. This was severe. Biopsies were taken with a cold forceps for histology. The exam was otherwise without abnormality. Impression: - Crohn's disease with colonic involvement. Inflammation was found from the anus to the descending colon. This was severe. Biopsied. - The examination was otherwise normal. - The exam was otherwise normal to the cecum. Recommendation: - Patient has a contact number available for emergencies. The signs and symptoms of potential delayed complications were discussed with the patient. Return to normal activities tomorrow. Written discharge instructions were provided to the patient. - Resume previous diet. - Discharge patient to home. - Continue present medications. - Await pathology results. - Telephone GI clinic for pathology results in 1 week. - Return to referring physician. - Refer to a colo-rectal surgeon. - The findings and recommendations were discussed with the patient. Procedure Code(s): --- Professional --- 28453, Colonoscopy, flexible; with biopsy, single or multiple Diagnosis Code(s): --- Professional --- K50.10, Crohn's disease of large intestine without complications D50.0, Iron deficiency anemia secondary to blood loss (chronic) CPT copyright 2019 [employer]. All rights reserved. The codes documented in this report are preliminary and upon certified procedural coder review may be revised to meet current compliance requirements. Bo Gentlie MD Bo Gentile MD 09/17/2020 11:24:14 AM Electronically signed by Bo Gentile MD Number of Addenda: 0 Note Initiated On: 09/17/2020 10:58 AM Estimated Blood Loss: Estimated blood loss: none.
[2020-09-17 11:45] VITALS: BP 117/70
== END 2020-09-17 11:48 | disposition home or self-care (01) ==
LOC: M OPP 09:24
PROVIDERS: ATTEND Internal Medicine Gastroenterology
DX: D50.0 Iron deficiency anemia secondary to blood loss (chronic) (principal); K50.10 Crohn's disease of large intestine without complications; K52.9 Noninfective gastroenteritis and colitis, unspecified; E03.9 Hypothyroidism, unspecified; F41.9 Anxiety disorder, unspecified; Z86.711 Personal history of pulmonary embolism; Z79.899 Other long term (current) drug therapy

== ENCOUNTER 2022-11-01 18:23 | Inpatient (IN) | payer MEDICARE, MEDICAID ==
[~2022-11-01] VITALS: Ht 157.5 cm; Wt 67.3 kg
[~2022-11-01 18:23] MED LIST changes: -BENZ-52 PO; +BENZ1TAB5 PO; +ERGO500029 PO; -HALO5TA; -HALO5TA PO; +HALO5TAB33; +HALO5TAB33 PO; -LIDOCAINE 2% 100MG/5ML SDV (FOR ANES.) As Ordered ONE; +LOSA50TA28; -LOSA50TA88; -NS 1,000 ML IV ONE; -VITA50005 PO; -propofoL 200 MG/20 ML VIAL As Ordered ONE
[2022-11-01] MEDS ORDERED: NS 1,000 ML IV ONE (19:05)
[2022-11-01] MEDS ORDERED: ISOVUE-370 76% 100ML VIAL As Ordered ONE (19:10)
[2022-11-01 19:47] LABS: BASO % 0.5 % (0.0-1.0); EOS # 0.4 10^3/uL (0.0-0.5); EOS % 4.9 % (0.0-3.0); HEMATOCRIT 33.5 % (36.0-47.0); HEMOGLOBIN 9.9 g/dl (12.0-15.5); LYMPH # 1.2 10^3/uL (1.5-5.0); LYMPH % 15.6 % (24.0-44.0); MEAN CORPUSCULAR HEMOGLOBIN 24.3 pg (27.0-33.0); MEAN CORPUSCULAR HGB CONC 29.6 g/dl (32.0-36.5); MEAN CORPUSCULAR VOLUME 82.3 fl (80.0-96.0); MONO # 0.9 10^3/uL (0.0-0.8); MONO % 11.9 % (2.0-8.0); NEUTROPHILS % 66.6 % (36.0-66.0); PLATELET COUNT, AUTOMATED 410 10^3/uL (150-450); RED BLOOD COUNT 4.07 10^6/uL (4.00-5.40); WHITE BLOOD COUNT 7.5 10^3/uL (4.0-10.0)
[2022-11-01 20:04] LABS: LIPASE 63 U/L (12-53)
[2022-11-01 20:07] LABS: ALBUMIN 2.5 G/DL (3.2-5.2); ALKALINE PHOSPHATASE 83 U/L (46-116); ALT/SGPT < 9 U/L (7.0-40); AST/SGOT 30 U/L (<34); BILIRUBIN,DIRECT < 0.1 MG/DL (<0.4); BILIRUBIN,TOTAL 0.2 MG/DL (0.3-1.2); BLOOD UREA NITROGEN 12 MG/DL (9-23); CALCIUM LEVEL 8.1 MG/DL (8.5-10.1); CARBON DIOXIDE LEVEL 28 MMOL/L (20-31); CHLORIDE LEVEL 101 MMOL/L (98-107); CREATININE FOR GFR 0.49 MG/DL (0.55-1.30); GLOMERULAR FILTRATION RATE > 60.0 (>58); GLUCOSE, FASTING 121 MG/DL (60-100); POTASSIUM SERUM 4.7 MMOL/L (3.5-5.1); SODIUM LEVEL 135 MMOL/L (136-145); TOTAL PROTEIN 7.3 G/DL (5.7-8.2)
[2022-11-01 20:12] LABS: ERYTHROCYTE SEDIMENTATION RATE > 130 mm/hr (0-20)
[2022-11-01] MEDS ORDERED: methylPREDNISolone 125MG 2ML VIAL IV ONE (21:55)
[2022-11-01] MEDS ORDERED: NS 1,000 ML IV SCH (23:30)
[2022-11-01] MEDS ORDERED: ACETAMINOPHEN TAB 650MG DOSE (2X325MG) PO PRN (23:30)
[2022-11-02] MEDS ORDERED: BUDESONIDE EC 3MG CAP (ENTOCORT EC) PO SCH ×2 (00:35→15:00)
[2022-11-02] MEDS ORDERED: DEXTROSE 50% 50ML SYRINGE IV PRN (00:55)
[2022-11-02] MEDS ORDERED: GLUCOSE 4GM CHEW TABLET PO PRN (00:55)
[2022-11-02] MEDS ORDERED: GLUCAGON INJ 1MG VIAL SC PRN (00:55)
[2022-11-02] MEDS ORDERED: BUDESONIDE EC 3MG CAP (ENTOCORT EC) PO ONE (01:00)
[2022-11-02] MEDS: INSULIN LISPRO (NovoLOG) PER UNIT SC SCH ×5 (01:24→23:50)
[2022-11-02] MEDS ORDERED: LEVO2TA PO (01:50)
[2022-11-02] MEDS ORDERED: VITA200016 PO (01:50)
[2022-11-02] MEDS ORDERED: HOME MED LIST COMPLETE! XX SCH (01:50)
[2022-11-02] MEDS ORDERED: DORZ2SOL5 OU (01:50)
[2022-11-02] MEDS ORDERED: VITMTA PO (01:50)
[2022-11-02] MEDS ORDERED: CLON-412 PO (01:50)
[2022-11-02] MEDS ORDERED: METO1TAB87 PO (01:50)
[2022-11-02] MEDS: BENZTROPINE 1 MG TAB PO SCH ×2 (03:05→21:12)
[2022-11-02] MEDS: PALIPERIDONE 6MG ER TAB (INVEGA) PO SCH ×2 (03:06→21:12)
[2022-11-02] MEDS: LEVOTHYROXINE 100MCG TABLET (0.1MG) PO SCH (06:20)
[2022-11-02 06:43] LABS: HEMOGLOBIN 9.4 g/dl (12.0-15.5); MEAN CORPUSCULAR HEMOGLOBIN 24.2 pg (27.0-33.0); MEAN CORPUSCULAR HGB CONC 29.4 g/dl (32.0-36.5); MEAN CORPUSCULAR VOLUME 82.3 fl (80.0-96.0); PLATELET COUNT, AUTOMATED 372 10^3/uL (150-450); RED BLOOD COUNT 3.89 10^6/uL (4.00-5.40); WHITE BLOOD COUNT 5.4 10^3/uL (4.0-10.0)
[2022-11-02 06:58] LABS: ALBUMIN 2.3 G/DL (3.2-5.2); ALKALINE PHOSPHATASE 80 U/L (46-116); ALT/SGPT 9 U/L (7.0-40); AST/SGOT 9 U/L (<34); BILIRUBIN,TOTAL 0.3 MG/DL (0.3-1.2); BLOOD UREA NITROGEN 9 MG/DL (9-23); CARBON DIOXIDE LEVEL 28 MMOL/L (20-31); CHLORIDE LEVEL 104 MMOL/L (98-107); CREATININE FOR GFR 0.45 MG/DL (0.55-1.30); GLOMERULAR FILTRATION RATE > 60.0 (>58); GLUCOSE, FASTING 225 MG/DL (60-100); MAGNESIUM LEVEL 1.9 MG/DL (1.8-2.4); POTASSIUM SERUM 4.1 MMOL/L (3.5-5.1); SODIUM LEVEL 136 MMOL/L (136-145); TOTAL PROTEIN 6.7 G/DL (5.7-8.2)
[2022-11-02] MEDS: MULTIVITAMINS/MINERALS THERAP 1 TAB PO SCH (08:35)
[2022-11-02 08:59] VITALS: BP 101/62
[2022-11-02] MEDS: cloNIDine 0.1MG TABLET PO SCH ×2 (08:59→21:13)
[2022-11-02] MEDS: METOPROLOL TART 12.5 MG PER 1/2 TAB PO SCH ×2 (09:00→21:12)
[2022-11-02] MEDS: COSOPT OCUMETER PLUS 10ML (DORZOLAMIDE/TIMOLOL) OU SCH ×2 (09:43→21:16)
[2022-11-02 11:48] VITALS: BP 109/63
[2022-11-02 12:25] VITALS: BP 118/79
[2022-11-02 20:07] VITALS: BP 107/64
[2022-11-03] MEDS: LEVOTHYROXINE 100MCG TABLET (0.1MG) PO SCH (05:17)
[2022-11-03] MEDS: INSULIN LISPRO (NovoLOG) PER UNIT SC SCH ×4 (05:18→23:59)
[2022-11-03 06:16] LABS: HEMATOCRIT 29.9 % (36.0-47.0); HEMOGLOBIN 8.6 g/dl (12.0-15.5); MEAN CORPUSCULAR HEMOGLOBIN 23.8 pg (27.0-33.0); MEAN CORPUSCULAR HGB CONC 28.8 g/dl (32.0-36.5); MEAN CORPUSCULAR VOLUME 82.8 fl (80.0-96.0); PLATELET COUNT, AUTOMATED 363 10^3/uL (150-450); RED BLOOD COUNT 3.61 10^6/uL (4.00-5.40); WHITE BLOOD COUNT 8.6 10^3/uL (4.0-10.0)
[2022-11-03 06:26] VITALS: BP 107/69
[2022-11-03 06:46] LABS: BLOOD UREA NITROGEN 13 MG/DL (9-23); CALCIUM LEVEL 8.2 MG/DL (8.5-10.1); CARBON DIOXIDE LEVEL 29 MMOL/L (20-31); CHLORIDE LEVEL 107 MMOL/L (98-107); CREATININE FOR GFR 0.45 MG/DL (0.55-1.30); GLOMERULAR FILTRATION RATE > 60.0 (>58); GLUCOSE, FASTING 115 MG/DL (60-100); POTASSIUM SERUM 3.8 MMOL/L (3.5-5.1); SODIUM LEVEL 141 MMOL/L (136-145)
[2022-11-03] MEDS ORDERED: BUDESONIDE EC 3MG CAP (ENTOCORT EC) PO SCH (09:00)
[2022-11-03] MEDS: cloNIDine 0.1MG TABLET PO SCH ×2 (09:08→20:59)
[2022-11-03] MEDS: COSOPT OCUMETER PLUS 10ML (DORZOLAMIDE/TIMOLOL) OU SCH ×2 (09:09→20:59)
[2022-11-03] MEDS: METOPROLOL TART 12.5 MG PER 1/2 TAB PO SCH ×2 (09:09→20:58)
[2022-11-03] MEDS: MULTIVITAMINS/MINERALS THERAP 1 TAB PO SCH (09:09)
[2022-11-03] MEDS: predniSONE 20 MG TAB PO SCH (13:04)
[2022-11-03 20:56] VITALS: BP 113/72
[2022-11-03] MEDS: PALIPERIDONE 6MG ER TAB (INVEGA) PO SCH (20:59)
[2022-11-03] MEDS: BENZTROPINE 1 MG TAB PO SCH (20:59)
[2022-11-04] MEDS: INSULIN LISPRO (NovoLOG) PER UNIT SC SCH ×2 (06:00→12:00)
[2022-11-04] MEDS: LEVOTHYROXINE 100MCG TABLET (0.1MG) PO SCH (06:06)
[2022-11-04 06:14] VITALS: BP 126/78
[2022-11-04 08:02] LABS: HEMATOCRIT 32.1 % (36.0-47.0); HEMOGLOBIN 9.4 g/dl (12.0-15.5); MEAN CORPUSCULAR HEMOGLOBIN 24.2 pg (27.0-33.0); MEAN CORPUSCULAR HGB CONC 29.3 g/dl (32.0-36.5); MEAN CORPUSCULAR VOLUME 82.5 fl (80.0-96.0); PLATELET COUNT, AUTOMATED 350 10^3/uL (150-450); RED BLOOD COUNT 3.89 10^6/uL (4.00-5.40); WHITE BLOOD COUNT 5.8 10^3/uL (4.0-10.0)
[2022-11-04 08:22] LABS: BLOOD UREA NITROGEN 10 MG/DL (9-23); CALCIUM LEVEL 8.3 MG/DL (8.5-10.1); CARBON DIOXIDE LEVEL 31 MMOL/L (20-31); CHLORIDE LEVEL 103 MMOL/L (98-107); CREATININE FOR GFR 0.46 MG/DL (0.55-1.30); GLOMERULAR FILTRATION RATE > 60.0 (>58); GLUCOSE, FASTING 107 MG/DL (60-100); POTASSIUM SERUM 3.9 MMOL/L (3.5-5.1); SODIUM LEVEL 139 MMOL/L (136-145)
[2022-11-04] MEDS ORDERED: PANT40TA29 PO (08:36)
[2022-11-04] MEDS ORDERED: PRED20TA PO (08:36)
[2022-11-04 09:00] VITALS: BP 112/63
[2022-11-04] MEDS: METOPROLOL TART 12.5 MG PER 1/2 TAB PO SCH (09:00)
[2022-11-04] MEDS: cloNIDine 0.1MG TABLET PO SCH (09:00)
[2022-11-04] MEDS: MULTIVITAMINS/MINERALS THERAP 1 TAB PO SCH (09:15)
[2022-11-04] MEDS: predniSONE 20 MG TAB PO SCH (09:16)
[2022-11-04] MEDS: COSOPT OCUMETER PLUS 10ML (DORZOLAMIDE/TIMOLOL) OU SCH (09:17)
== END 2022-11-04 13:35 | disposition home or self-care (01) | DRG 387 ==
LOC: M ED 18:23 → M ED INP 23:28 → ENRESERV 11-02 11:21 → M MS5PR 11-02 12:25
PROVIDERS: ADMIT Internal Medicine; ATTEND Internal Medicine
DX: K50.918 Crohn's disease, unspecified, with other complication (principal); E11.9 Type 2 diabetes mellitus without complications; E03.9 Hypothyroidism, unspecified; D64.9 Anemia, unspecified; I10 Essential (primary) hypertension; F20.9 Schizophrenia, unspecified; Z79.899 Other long term (current) drug therapy; Z88.8 Allergy status to other drugs, medicaments and biological substances; Z93.3 Colostomy status; Z86.711 Personal history of pulmonary embolism; Z95.828 Presence of other vascular implants and grafts; Z79.890 Hormone replacement therapy